=== PATIENT | male | born 1945 | race Hispanic/Latino ===

== ENCOUNTER 2020-05-21 13:16 | Emergency (ER) | payer MEDICARE, SELFPAY ==
--- NOTE | ~2020-05-21 | XR_ITS ---
XR finger 5th LT min 2V 05/21/2020 13:35 Indication: Left fifth finger pain Procedure: 4 views left fifth finger Comparison: No prior studies for comparison. Findings: Mild polyarticular osteoarthritis. Osteopenia. No acute fracture or traumatic malalignment. No foreign bodies. Impression: 1: No acute fracture. 2: Mild polyarticular osteoarthritis. Reviewed, dictated and finalized at location B. Impression: 1: No acute fracture. 2: Mild polyarticular osteoarthritis.
[2020-05-21 13:24] VITALS: BP 166/76; PULSE 73; RESP 20; TEMP 36.5; O2SAT 100
--- NOTE | 2020-05-21 13:37 | ED.GENADULT ---
HPI - General Adult General Chief complaint: Extremity Injury, Upper Stated complaint: Fall - injured left finger Time Seen by Provider: 05/21/20 13:20 Source: patient and family Mode of arrival: ambulatory Limitations: no limitations History of Present Illness HPI narrative: Patient is a 75-year-old male who presents to emergency department for evaluation of pinky finger injury that occurred today. Patient on arrival to emergency department is resting comfortably in the room in no distress notes that he tripped walking down the stairs and dislocated the pinky finger which is his only injury denies other injuries or complaints has not taken anything for pain Related Data Home Medications Medication Instructions Recorded Confirmed aspirin 81 mg tablet,delayed 81 mg PO DAILY 12/01/19 release atorvastatin 10 mg tablet 10 mg PO DAILY 12/01/19 glipizide 5 mg-metformin 500 mg 1 tablet PO DAILY 12/01/19 tablet losartan 100 mg tablet 100 mg PO DAILY 12/01/19 dapagliflozin 5 mg tablet 5 mg PO DAILY 01/27/20 Allergies Allergy/AdvReac Type Severity Reaction Status Date / Time No Known Allergies Allergy Unknown Verified 05/21/20 13:27 Review of Systems Review of Systems: All systems reviewed & are unremarkable except as noted in HPI and below PMFSH Past Medical History Medical History Bradycardia Diabetes Essential hypertension Presence of cardiac pacemaker Surgical History Surgical History H/O rotator cuff surgery Pacemaker Family History Family History Mother Diabetes mellitus Sibling Cerebrovascular accident Sibling Cancer Social History Social History Smoking status: Never smoker Exam Narrative: Exam Narrative: GENERAL: Well-appearing, well-nourished, and in no acute distress. HEAD: Normocephalic, atraumatic. EYES: PERRLA and EOMI. ENT: Nares clear, no rhinorrhea or epistaxis. Mucous membranes moist. EXTREMITIES: Deformity of the left pinky finger which was manually reduced SKIN: Warm, dry, no rash. NEURO: No focal deficits. Alert and oriented x3. Neurovascularly intact PSYCH: Normal mood and affect. Course Course Emergency Course: Patient with finger dislocation in the room in no distress aware of case findings treatment plan and diagnosis Vital Signs Vital signs: Vital Signs Temperature 97.7 F 05/21/20 13:24 Pulse Rate 73 05/21/20 13:24 Respiratory Rate 20 05/21/20 13:24 Blood Pressure 166/76 H 05/21/20 13:24 Pulse Oximetry 100 05/21/20 13:24 Temperature 97.7 F 05/21/20 13:24 Pulse Rate 73 05/21/20 13:24 Respiratory Rate 20 05/21/20 13:24 Blood Pressure 166/76 H 05/21/20 13:24 Pulse Oximetry 100 05/21/20 13:24 Procedures Orthopedic Joint Reduction Joint #1: Orthopedic Joint Reduction Date: 05/21/20 Orthopedic Joint Reduction Time: 13:40 Time Out Performed: Yes Side: left Joint Reduction Location: finger Analgesia: none Pre-Procedure Neuro Vascular Exam: normal Local Anesthesia: none Technique used: direct manipulation Post-reduction neuro exam: intact Post-reduction vascular: intact Post Reduction X-Ray Obtained: Yes Post Reduction X-Ray Results: reduced Splint Applied: Yes Patient Tolerated Procedure: well Medical Decision Making MDM Narrative Medical decision making narrative: Patients injury or pain is consistent with musculoskeletal etiology. No signs of neurological or vascular compromise on exam. Compartments and tisues are soft without signs of compartment syndrome. Pain is felt appropriate for further evaluation on an outpatient basis. Vital Signs Vital Signs: Vital Signs Temperature 97.7 F 05/21/20 13:24 Pulse
[2020-05-21] MEDS: ACETAMINOPHEN 325 MG TABLET 650 MG PO (14:00)
== END 2020-05-21 14:07 | disposition home or self-care (01) ==
PROVIDERS: Emergency Provider Emergency Medicine; PCP Internal Medicine
DX: S63.257A Unspecified dislocation of left little finger, initial encounter (principal); E11.9 Type 2 diabetes mellitus without complications; I10 Essential (primary) hypertension; Z95.0 Presence of cardiac pacemaker; Z79.82 Long term (current) use of aspirin; Z79.84 Long term (current) use of oral hypoglycemic drugs; M19.042 Primary osteoarthritis, left hand; W10.9XXA Fall (on) (from) unspecified stairs and steps, initial encounter
CPT/HCPCS: 26770; 73140; 99285; A9270

== ENCOUNTER 2020-11-02 14:17 | Outpatient (CLI) | payer MEDICARE, SELFPAY ==
--- NOTE | ~2020-11-02 | CT_ITS ---
EXAMINATION: CT brain wo/w con DATE: 11/02/2020 15:01 INDICATION: Stroke. TECHNIQUE: Computed tomography (CT) of the head was performed without and with 100 mL Omnipaque 350 i ntravenous contrast. The mA was adjusted according to patient size. Iterative reconstruction techniqu e was employed. The dose-length product was 1210.67 mGy-cm. COMPARISON: Head CT 05/01/2019 FINDINGS: There are scattered areas of low attenuation in the cerebral white matter. There is no intr acranial hemorrhage, acute infarction, or abnormal intracranial mass lesion. The ventricles are quirino l in size. The paranasal sinuses are clear. The orbits are normal. The mastoid air cells are normal. IMPRESSION: 1. Stable moderate nonspecific cerebral white matter disease, which likely represents chronic small v essel ischemic disease. Reviewed, dictated and finalized at location A. IMPRESSION: 1. Stable moderate nonspecific cerebral white matter disease, which likely repr esents chronic small vessel ischemic disease.
[2020-11-02 14:52] LABS: Estimated Glomerular Filt Rate > 60
== END 2020-11-02 14:18 | disposition home or self-care (01) ==
PROVIDERS: PCP Internal Medicine; Visit Provider Internal Medicine
DX: G45.9 Transient cerebral ischemic attack, unspecified (principal); R90.82 White matter disease, unspecified
CPT/HCPCS: 70470; Q9967

== ENCOUNTER 2020-11-03 09:18 | Outpatient (CLI) | payer MEDICARE, SELFPAY ==
--- NOTE | ~2020-11-03 | US_ITS ---
EXAMINATION: US carotid duplex BI DATE: 11/03/2020 10:50 INDICATION: Transient cerebral ischemia. TECHNIQUE: Grayscale, color Doppler, and pulsed Doppler images of the cervical carotid arteries were obtained. The degree of vessel stenosis is placed in one of the following categories: normal, <50%, 5 0-69%, >=70% but less than near-occlusion, near-occlusion, or total occlusion. Note that percent sten osis relative to normal distal artery lumen diameter is indirectly measured from velocity measurement s as described by Scooby, et al. Radiology 2003; 229:340-346. COMPARISON: None. FINDINGS: RIGHT: The right common carotid artery (CCA) peak systolic velocity (PSV) is 61 cm/s. The right internal car otid artery (ICA) PSV is 56 cm/s. The right ICA end-diastolic velocity (EDV) is 9 cm/s. The right ICA /CCA PSV ratio is 0.9. Grayscale and color Doppler images yield an estimate of <50% diameter reductio n from plaque in the ICA. There is antegrade flow in the right vertebral artery. LEFT: The left CCA PSV is 73 cm/s. The left ICA PSV is 56 cm/s. The left ICA EDV is 10 cm/s. The left ICA/C CA PSV ratio is 0.8. Grayscale and color Doppler images yield an estimate of <50% diameter reduction from plaque in the ICA. There is antegrade flow in the left vertebral artery. IMPRESSION: 1. <50% stenosis in the right internal carotid artery. 2. <50% stenosis in the left internal carotid artery. Reviewed, dictated and finalized at location A.
== END 2020-11-03 09:19 | disposition home or self-care (01) ==
PROVIDERS: PCP Internal Medicine; Visit Provider Internal Medicine
DX: I65.23 Occlusion and stenosis of bilateral carotid arteries (principal)
CPT/HCPCS: 93880

== ENCOUNTER 2020-11-12 14:40 | Outpatient (CLI) | payer MEDICARE, SELFPAY ==
--- NOTE | 2020-11-12 | ECHO_ITS ---
Patient Info Name: Lucien Torres Age: 75 years : 1945 Gender: Male Ht: 66 in Wt: 145 lbs BSA: 1.76 m2 HR: 67 bpm BP: 162 / 84 mmHg Heart Rhythm: Paced Technical Quality: Fair Exam Date: 11/12/2020 2:59 PM Exam Location: [facility] Patient Status: Outpatient Admit Date: 11/12/2020 Staff Ordering Physician: CapoKoko MD Circular Gang Saw Operator: Tana Saldaña RDCS Attending Provider: FatemehKoko MD Exam Type: CA echo doppler color flow Study Info Indications - TIA Complete two-dimensional, color flow and Doppler transthoracic echocardiogram is performed. Summary 1. Complete two-dimensional, color flow and Doppler transthoracic echocardiogram is performed. 2. Left ventricular chamber dimension is normal. 3. Left ventricular systolic function is normal, estimated at 60-65%. 4. Left ventricular septal wall motion is abnormal with septal motion related to pacing. 5. Left atrial chamber dimension is moderately enlarged. 6. There is mild aortic valve sclerosis. 7. No likely cardioembolic source. Left Ventricle Left ventricular chamber dimension is normal. Left ventricular systolic function is normal, estimated at 60-65%. Left ventricular septal wall motion is abnormal with septal motion related to pacing. The left ventricular diastolic function is grade I diastolic dysfunction. Right Ventricle Right ventricular chamber dimension is normal. Linear artifact in right ventricle suggestive of catheter(s), pacemaker lead(s), or ICD lead(s). Left Atria Left atrial chamber dimension is moderately enlarged. Right Atria Right atrial chamber dimension is normal. Linear artifact in the right atrium suggestive of catheter(s), pacemaker lead(s), or ICD lead(s). Aortic Valve The aortic valve is trileaflet. There is mild aortic valve sclerosis. Pulmonic Valve The pulmonic valve is not well visualized. Mitral Valve The mitral valve has normal leaflets. Tricuspid Valve The tricuspid valve leaflets are normal. There is mild tricuspid valve regurgitation. Pericardium/Pleural The pericardium appears normal. Aorta The aortic root size at the sinus of Valsalva is normal. Left Ventricular Outflow Tract Name Value Normal LVOT 2D LVOT Diameter 2.0 cm LVOT Doppler LVOT Peak Gradient 4 mmHg LVOT Mean Gradient 2 mmHg LVOT VTI 19 cm LVOT VTI/AV VTI Ratio 0.9 LVOT Stroke Volume 61 ml LVOT CO 12.9 l/min LVOT CI 7.4 l/min/m2 Pulmonic Valve Name Value Normal PV Doppler PV Peak Gradient 3 mmHg Mitral Valve Name
== END 2020-11-12 14:41 | disposition home or self-care (01) ==
LOC: ANHCARD 14:43
PROVIDERS: PCP Internal Medicine; Visit Provider Internal Medicine
DX: G45.9 Transient cerebral ischemic attack, unspecified (principal); I51.7 Cardiomegaly
CPT/HCPCS: 93306

== ENCOUNTER 2020-12-07 17:23 | Emergency (ER) | payer MEDICARE, SELFPAY ==
--- NOTE | ~2020-12-07 | CT_ITS ---
EXAMINATION: CT cervical spine wo con DATE: 12/07/2020 21:51 INDICATION: Head injury. TECHNIQUE: Computed tomography (CT) of the cervical spine was performed without intravenous contrast. Automated exposure control and iterative reconstruction technique were employed. The dose-length pro duct was 681.00 mGy-cm. COMPARISON: None FINDINGS: There is mild scarring at the lung apices. There are nodules in the lungs measuring up to 6 mm in left upper lobe. There is 4 degrees dextrocurvature of cervical spine. Vertebral body heights and intervertebral disc heights are normal. The following disc levels are specifically discussed: C2-C3: There is no uncovertebral joint osteoarthritis. There is mild right and moderate left facet irasema int osteoarthritis. There is no neural foraminal stenosis. There is mild central canal stenosis. C3-C4: There is no uncovertebral joint osteoarthritis. There is mild bilateral facet joint osteoarthr itis. There is no neural foraminal stenosis. There is no central canal stenosis. C4-C5: There is no uncovertebral joint osteoarthritis. There is mild right and moderate left facet irasema int osteoarthritis. There is no neural foraminal stenosis. There is no central canal stenosis. C5-C6: There is no uncovertebral joint osteoarthritis. There is mild bilateral facet joint osteoarthr itis. There is no neural foraminal stenosis. There is mild central canal stenosis. C6-C7: There is no uncovertebral joint osteoarthritis. There is no facet joint osteoarthritis. There is no neural foraminal stenosis. There is no central canal stenosis. C7-T1: There is no uncovertebral joint osteoarthritis. There is mild bilateral facet joint osteoarthr itis. There is no neural foraminal stenosis. There is no central canal stenosis. IMPRESSION: 1. No fracture. 2. Mild cervical spondylosis. Reviewed, dictated and finalized at location A.
--- NOTE | ~2020-12-07 | CT_ITS ---
EXAMINATION: CT brain wo con DATE: 12/07/2020 21:51 INDICATION: Head injury. TECHNIQUE: Computed tomography (CT) of the head was performed without intravenous contrast. The mA wa s adjusted according to patient size. Iterative reconstruction technique was employed. The dose-lengt h product was 681.00 mGy-cm. COMPARISON: Head CT 11/02/2020 FINDINGS: There are scattered areas of low attenuation in the cerebral white matter. There is no intr acranial hemorrhage, acute infarction, or abnormal intracranial mass lesion. The ventricles are quirino l in size. The orbits are normal. There is mild mucosal thickening in the paranasal sinuses. The mast oid air cells are normal. IMPRESSION: 1. Stable moderate nonspecific cerebral white matter disease, which likely represents chronic small v essel ischemic disease. Reviewed, dictated and finalized at location A. IMPRESSION: 1. Stable moderate nonspecific cerebral white matter disease, which likely repr esents chronic small vessel ischemic disease.
--- NOTE | ~2020-12-07 | XR_ITS ---
EXAMINATION: XR knee RT 3V DATE: 12/07/2020 21:37 INDICATION: Right knee injury and pain. TECHNIQUE: 3 views of right knee were obtained. COMPARISON: Right knee radiographs 05/01/2019 FINDINGS: There is a nondisplaced stellate fracture of patella. There is mild tricompartmental osteoa rthritis. There is a small knee joint effusion. There is prepatellar soft tissue swelling. IMPRESSION: 1. Nondisplaced stellate fracture of patella. 2. Mild right knee osteoarthritis. 3. Small right knee joint effusion. Reviewed, dictated and finalized at location A.
[2020-12-07 17:56] VITALS: BP 147/53; PULSE 63; RESP 16; TEMP 36.3; O2SAT 98
--- NOTE | 2020-12-07 20:32 | ED.GENADULT ---
HPI - General Adult General Chief complaint: Fall <DIMITRI Sierra Last Filed: 12/07/20 21:54> Stated complaint: Fall/ R Knee Pain/ Abrasion forehead <DIMITRI Sierra Last Filed: 12/07/20 21:54> Time Seen by Provider: 12/07/20 20:27 <DIMITRI Sierra Last Filed: 12/07/20 21:54> Source: patient, family and RN notes reviewed <DIMITRI Sierra Last Filed: 12/07/20 21:54> Mode of arrival: ambulatory <DIMITRI Sierra Last Filed: 12/07/20 21:54> Limitations: no limitations <DIMITRI Sierra Filed: 12/07/20 21:54> History of Present Illness HPI narrative: Patient is a pleasant 75-year-old male who presents to emergency department for evaluation of ground-level fall was with family at the time and it was witnessed patient sustained abrasion to the left forehead and injured the right anterior knee. Patient with history of unsteady gait and dementia lives at home with family. Patient is otherwise been fine per family patient notes mild aching pain to the knee denies any headache. Patient presents per private vehicle with family and is otherwise in no distress injury occurred earlier today. Fall was described as mechanical in nature <Oscar Ulloa PA-C - Last Filed: 12/07/20 21:54> Related Data Home medications: Home Medications Medication Instructions Recorded Confirmed aspirin 81 mg tablet,delayed 81 mg PO DAILY 12/01/19 release atorvastatin 10 mg tablet 10 mg PO DAILY 12/01/19 glipizide 5 mg-metformin 500 mg 1 tablet PO DAILY 12/01/19 tablet losartan 100 mg tablet 100 mg PO DAILY 12/01/19 dapagliflozin 5 mg tablet 5 mg PO DAILY 01/27/20 <DIMITRI Sierra Last Filed: 12/07/20 21:54> Allergies/adverse reactions: Allergies Allergy/AdvReac Type Severity Reaction Status Date / Time No Known Allergies Allergy Unknown Verified 07/17/20 09:00 <DIMITRI Sierra Last Filed: 12/07/20 21:54> Review of Systems Review of Systems: All systems reviewed & are unremarkable except as noted in HPI and below <Oscar Ulloa PA-C - Last Filed: 12/07/20 21:54> [facility] Past Medical History Medical History: Medical History Bradycardia Diabetes Essential hypertension Presence of cardiac pacemaker <Oscar Ulloa PA-C - Last Filed: 12/07/20 21:54> Surgical History Surgical History: Surgical History H/O rotator cuff surgery Pacemaker <Oscar Ulloa PA-C - Last Filed: 12/07/20 21:54> Family History Family History: Family History Mother Diabetes mellitus Sibling Cerebrovascular accident Sibling Cancer <Oscar Ulloa PA-C - Last Filed: 12/07/20 21:54> Social History Social History: Social History Smoking status: Never smoker <Oscar Ulloa PA-C - Last Filed: 12/07/20 21:54> Exam Narrative: Exam Narrative: GENERAL: Well-appearing, well-nourished, and in no acute distress. HEAD: Normocephalic, abrasion to the left forehead EYES: PERRLA and EOMI. ENT: Nares clear, no rhinorrhea or epistaxis. Mucous membranes moist. CHEST: Clear to auscultation. No respiratory distress. No wheezes rales or rhonchi HEART: Regular rate and rhythm. No murmur heard. Normal peripheral pulses. EXTREMITIES: Abrasion and swelling to the anterior right knee. No cervical thoracic or lumbar tenderness SKIN: Warm, dry, no rash. NEURO: No focal deficits. Alert and oriented person and place and reason for being here PSYCH: Normal mood and affect. <Oscar Ulloa PA-C - Last Filed: 12/07/20 21:54> Course Course Emergency Course: Patient in the room in no distress aware of case findings at this time involving his knee patient will be placed in
[2020-12-07 20:40] VITALS: BP 165/72; PULSE 63; RESP 18; O2SAT 100
[2020-12-07 23:26] VITALS: BP 152/66; PULSE 59; RESP 16; O2SAT 100
== END 2020-12-07 23:28 | disposition home or self-care (01) ==
PROVIDERS: Emergency Provider Emergency Medicine; PCP Internal Medicine
DX: S00.81XA Abrasion of other part of head, initial encounter (principal); S82.091A Other fracture of right patella, initial encounter for closed fracture; F03.90 Unspecified dementia, unspecified severity, without behavioral disturbance, psychotic disturbance, mood disturbance, and anxiety; R26.81 Unsteadiness on feet; E11.9 Type 2 diabetes mellitus without complications; I10 Essential (primary) hypertension; Z95.0 Presence of cardiac pacemaker; M17.11 Unilateral primary osteoarthritis, right knee; R90.82 White matter disease, unspecified; M47.812 Spondylosis without myelopathy or radiculopathy, cervical region; Z79.82 Long term (current) use of aspirin; Z79.84 Long term (current) use of oral hypoglycemic drugs; W18.39XA Other fall on same level, initial encounter
CPT/HCPCS: 70450; 72125; 73562; 99283; 99284

== ENCOUNTER 2021-01-29 11:53 | Outpatient (CLI) | payer MEDICARE, SELFPAY ==
--- NOTE | ~2021-01-29 | PE_ITS ---
EXAMINATION: PET skull to mid thigh DATE: 01/29/2021 13:48 INDICATION: Lung nodules. TECHNIQUE: Blood glucose level was 87 mg/dL. 10.859 mCi of 18-fluorodeoxyglucose (18-FDG) was adminis tered i.v. Low dose computed tomography (CT) images were acquired from the base of the brain to the p roximal thighs for attenuation correction and anatomic localization. Automated exposure control was e mployed. Dose-length product (DLP) was 605 mGy-cm. Positron emission tomography (PET) images were acq uired in the same distribution. COMPARISON: Chest CT 10/31/2020 FINDINGS: Head/neck: There are no pathologically enlarged lymph nodes. Chest: There is mild scarring at the lung apices. A calcified left lung nodule is consistent with old granulomatous disease. There is mosaic attenuation in the lungs, likely small airways disease. There are a few scattered nodules in the lungs measuring up to 8 mm in left upper lobe without increased a ctivity. The 8 mm nodule demonstrates maximum SUV of 0.82. No pleural effusion. The heart size is nor mal. There are coronary artery calcifications. No pericardial effusion. There is a left chest wall pa cer with leads in the right atrium and right ventricle. Abdomen/pelvis/proximal thighs: The liver is normal. There are gallstones in the gallbladder, which i s normal in size. The pancreas and adrenal glands are normal. There are cysts in the kidneys measurin g up to 2.3 cm on the left. The bladder is distended. There are no dilated loops of bowel. The prosta te is mildly enlarged. There are no pathologically enlarged lymph nodes. There is no free intraperito lia fluid. There is no osseous malignancy. IMPRESSION: 1. Pulmonary nodules measuring up to 8 mm without increased activity, stable from 10/31/20, probably b enign. Noncontrast low-dose chest CT is recommended in 6-12 months. Reviewed, dictated and finalized at location A. IMPRESSION: 1. Pulmonary nodules measuring up to 8 mm without increased activity, stable fr om 10/31/20, probably benign. Noncontrast low-dose chest CT is recommended in 6- 12 months.
[2021-01-29 12:19] LABS: Glucose Point of Care 87 mg/dl (65-105)
== END 2021-01-29 11:54 | disposition home or self-care (01) ==
LOC: ANHIMG 11:56
PROVIDERS: PCP Internal Medicine; Visit Provider Internal Medicine Critical Care Medicine
DX: R91.8 Other nonspecific abnormal finding of lung field (principal)
CPT/HCPCS: 78815; 82948; A9552

== ENCOUNTER 2022-10-05 16:56 | Emergency (ER) | payer MEDICARE, SELFPAY ==
--- NOTE | ~2022-10-05 | CT_ITS ---
EXAMINATION: CT cervical spine wo con DATE: 10/05/2022 17:43 INDICATION: Head injury TECHNIQUE: Computed tomography (CT) of the cervical spine was performed without intravenous contrast. The dose-length product (DLP) was 366.20 mGy-cm. Automated exposure control and iterative reconstruc tion technique were employed. COMPARISON: 12/07/2020 FINDINGS: No fracture, dislocation, or subluxation. The vertebral body heights are normal. There is m ild loss of intervertebral disc space height in the upper thoracic spine. The odontoid process is int act. The prevertebral soft tissues are normal. There is multilevel moderate facet joint osteoarthriti s. IMPRESSION: 1. Mild cervical spondylosis without acute findings or significant interval change. Reviewed, dictated and finalized at location F. S SECRETARY IMPRESSION: 1. Mild cervical spondylosis without acute findings or significant interval saritha nge.
--- NOTE | ~2022-10-05 | CT_ITS ---
EXAMINATION: CT brain wo con INDICATION: Head injury COMPARISON: 12/07/2020 TECHNIQUE: Standard unenhanced head CT. The dose-length product (DLP) was 605.33 mGy-cm. The mA was a djusted according to patient size. Iterative reconstruction technique was employed. FINDINGS: There is no acute intraparenchymal hemorrhage. No evidence of mass lesion. No evidence of a cute infarction. There is moderate periventricular and subcortical hypodensity probably related to sm all vessel ischemic disease. There is moderate prominence of the sulci and ventricles related to cere bral atrophy. Intracranial calcified cerebral atherosclerosis is noted. There are no extra-axial myra ections. There is no mass effect or midline shift. The orbits and soft tissues are unremarkable. Ther e is mild mucosal thickening of the paranasal sinuses. IMPRESSION: 1. No acute intracranial abnormality. 2. Age related findings. Reviewed, dictated and finalized at location F. DENTIAL HOUSEKEEPER
[2022-10-05 17:14] VITALS: BP 136/58; PULSE 91; RESP 18; TEMP 36.8; O2SAT 99
--- NOTE | 2022-10-05 18:31 | ED.HEATRA ---
HPI - Head Injury General Chief complaint: Head Injury Stated complaint: HI Time Seen by Provider: 10/05/22 17:19 Source: patient and family Mode of arrival: ambulatory Limitations: dementia History of Present Illness HPI Narrative: Patient is a 77-year-old male who presents to the ER with reports of head injury with scalp laceration. Patient has a history of dementia and is a limited historian. Patient's son at bedside assisted in providing information and was present when son fell. Son reports patient was bending over trying to pick something off the ground and lost his balance, falling forward. He hit his head on the ground and sustained a laceration to the top of his head. Son denied any loss of consciousness. Patient has been able to ambulate and has been at his baseline since the fall. Patient denies any areas of pain. Denies any other acute complaints. Denies nausea or vomiting, vision changes. Patient is on aspirin 81 mg daily, no other blood thinners. Tetanus status unknown. Related Data Home Medications Medication Instructions Recorded Confirmed aspirin 81 mg tablet,delayed 81 mg PO DAILY 12/01/19 release atorvastatin 10 mg tablet 10 mg PO DAILY 12/01/19 glipizide 5 mg-metformin 500 mg 1 tablet PO DAILY 12/01/19 tablet losartan 100 mg tablet 100 mg PO DAILY 12/01/19 dapagliflozin 5 mg tablet (Farxiga) 5 mg PO DAILY 01/27/20 Allergies Allergy/AdvReac Type Severity Reaction Status Date / Time No Known Allergies Allergy Unknown Verified 10/05/22 17:21 Review of Systems Review of Systems: CONSTITUTIONAL: Denies fever, chills, or sweats. EYES: Denies visual changes. CARDIOVASCULAR: Denies chest pain. RESPIRATORY: Denies dyspnea. GASTROINTESTINAL: Denies abdominal pain, nausea, vomiting. MUSCULOSKELETAL: Denies back pain, joint pain, or myalgia. NEUROLOGIC: See HPI. All systems reviewed & are unremarkable except as noted in HPI and below PMFSH Past Medical History Medical History Bradycardia Diabetes Essential hypertension Presence of cardiac pacemaker Surgical History Surgical History H/O rotator cuff surgery Pacemaker Family History Family History Mother Diabetes mellitus Sibling Cerebrovascular accident Sibling Cancer Social History Social History Smoking status: Never smoker Exam Narrative: GENERAL: Well appearing, well-nourished, non-toxic, in no acute distress. HEAD: Normocephalic. Approximately 2.5 cm curvilinear laceration noted to right superior parietal scalp, bleeding controlled. EYES: PERRLA/EOMI, conjunctiva clear. NECK: Supple. No adenopathy, no masses. No midline spinal tenderness. RESPIRATORY: Airway patent, respirations nonlabored. Clear to auscultation bilaterally, no rales, rhonchi, wheezing. CARDIOVASCULAR: Regular rate and rhythm without murmurs, rubs, or gallops. Radial pulses 2+ and equal bilaterally. ABDOMINAL: Soft, nontender, nondistended, no hepatosplenomegaly. Normoactive BS. MUSCULOSKELETAL: Moves all extremities. Strength/ROM intact without gross deformities. No midline thoracic or lumbar spinal tenderness. SKIN: Warm, dry, normal color. No rashes. NEURO: Alert, confused by questioning, which family reports is consistent with patient's dementia. Speech clear. Cranial nerves II-XII grossly intact. Steady gait. No ataxic movements. No focal deficits. PSYCHIATRIC: Appropriate mood and affect. Normal interaction. Course Vital Signs Vital signs: Vital Signs Temperature 98.2 F 10/05/22 17:14 Pulse Rate 91 10/05/22 17:14 Respiratory Rate 18 10/05/22 17:14 Blood Pressure 136/58 L 10/05/22 17:14 Pulse Oximetry 99 10/05/22 17:14 Oxygen Delivery Room Air 10/05/22 17:14 Temperature 98.2
[2022-10-05] MEDS: TETANUS,DIPHTHERIA,AC PERTUSSIS ADULT (0.5 ML) BOOSTRIX IM (18:47)
[2022-10-05 18:48] VITALS: BP 133/85; PULSE 84; RESP 17; O2SAT 97
== END 2022-10-05 18:50 | disposition home or self-care (01) ==
PROVIDERS: Emergency Provider Physician Assistant; PCP Internal Medicine
DX: S01.01XA Laceration without foreign body of scalp, initial encounter (principal); M47.812 Spondylosis without myelopathy or radiculopathy, cervical region; I10 Essential (primary) hypertension; Z95.0 Presence of cardiac pacemaker; E11.9 Type 2 diabetes mellitus without complications; W18.30XA Fall on same level, unspecified, initial encounter; F03.90 Unspecified dementia, unspecified severity, without behavioral disturbance, psychotic disturbance, mood disturbance, and anxiety; Z23 Encounter for immunization
CPT/HCPCS: 12001; 70450; 72125; 90471; 90715; 99284

== ENCOUNTER 2023-01-02 17:13 | Emergency (ER) | payer MEDICARE, SELFPAY ==
--- NOTE | ~2023-01-02 | CT_ITS ---
EXAMINATION: CT cervical spine wo con DATE: 01/02/2023 19:19 INDICATION: Fall with head injury TECHNIQUE: Computed tomography (CT) of the cervical spine was performed without intravenous contrast. Automated exposure control and iterative reconstruction technique were employed. The dose-length pro duct was 447.36 mGy-cm. COMPARISON: 10/05/2022 FINDINGS: Mild cervicothoracic dextrocurvature. Sagittal alignment is normal. Vertebral body heights are normal . No fracture. Moderate osteoarthritis at the atlantoaxial articulation. Mild disc height loss at C2- C3 through C4-C5. Moderate disc height loss at C7-T1 through T3-T4. Multilevel mild cervical facet an d uncovertebral osteoarthritis. 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 There is no neural foraminal stenosis on the right at T1-T2. No s ignificant cervical neural foraminal stenosis. Cervical soft tissues are unremarkable. Interval amor e since prior PET/CT and a few small nodules at the bilateral apices, the largest measuring 9 x 7 mm in the left upper lobe and which were all without evident increased FDG uptake, likely benign. IMPRESSION: 1. Mild cervical spondylosis. No acute osseous abnormality. Reviewed, dictated and finalized at location A.
--- NOTE | ~2023-01-02 | CT_ITS ---
EXAMINATION: CT brain wo con DATE: 01/02/2023 19:18 INDICATION: Fall with head injury and laceration at the top of the head. TECHNIQUE: Computed tomography (CT) of the head was performed without intravenous contrast. Sagittal and coronal reconstructions were performed. The mA was adjusted according to patient size. Iterative reconstruction technique was employed. The dose-length product was 681.00 mGy-cm. COMPARISON: head CT dated 10/05/2022 FINDINGS: No calvarial fracture. No acute intracranial hemorrhage, acute infarction or abnormal extra axial flu id collection. There is mild to moderate scattered white matter hypoattenuation consistent with chron ic small vessel ischemic disease. Symmetric prominence of the sulci consistent with moderate age-appr opriate diffuse cerebral volume loss. Ventricles are normal and symmetric. No mass/mass effect. Mild mucoperiosteal thickening the ethmoid sinuses. The orbits and mastoid air cells are normal. Intracra nial calcified cerebral atherosclerosis is noted at the carotid siphons. IMPRESSION: 1. No fracture or acute intracranial process. 2. Age-related changes including moderate diffuse volume loss and mild scattered white matter hypoatt enuation consistent with chronic small vessel ischemic disease. Reviewed, dictated and finalized at location A. IMPRESSION: 1. No fracture or acute intracranial process. 2. Age-related changes including moderate diffuse volume loss and mild scattere d white matter hypoattenuation consistent with chronic small vessel ischemic di sease.
--- NOTE | ~2023-01-02 | XR_ITS ---
EXAMINATION: XR chest 1V DATE: 01/02/2023 19:31 INDICATION: Falls TECHNIQUE: frontal view of the chest was obtained. COMPARISON: Chest radiograph dated 08/11/2017 FINDINGS: No focal airspace opacities, pulmonary edema, pleural effusion or pneumothorax. The cardiomediastinal silhouette is normal. Dual lead pacemaker seen with leads projecting over the expected locations of the right atrium and right ventricle. Mild to moderate degenerative skeletal changes at the bilateral shoulders. IMPRESSION: 1. No acute cardiopulmonary disease. Reviewed, dictated and finalized at location A.
[2023-01-02 17:14] VITALS: BP 137/58; PULSE 71; RESP 20; TEMP 37.2; O2SAT 96
--- NOTE | 2023-01-02 19:02 | ECG_ITS ---
Measurements Intervals [place] Rate: 60 P: -7 CA: 207 QRS: -28 QRSD: 146 T: 93 QT: 458 QTc: 460 Interpretive Statements ELECTRONIC ATRIAL PACEMAKER ELECTRONIC VENTRICULAR PACEMAKER ABNORMAL RHYTHM ECG NO PREVIOUS ECG AVAILABLE FOR COMPARISON Electronically Signed On 01-03-2023 9:38:12 CDT by Lei Hadley M.D.
--- NOTE | 2023-01-02 19:08 | ED.GENADULT ---
HPI - General Adult General Chief complaint: Head Injury Stated complaint: fall, head injury Time Seen by Provider: 01/02/23 19:00 Source: family Limitations: dementia History of Present Illness HPI narrative: 77 years old white male with history of Alzheimer, was walking behind his without a walker, lost her balance and fell, scalp laceration, no loss of consciousness, patient denying any pain. Prior to arrival to the emergency room. History of multiple falls. Related Data Home Medications Medication Instructions Recorded Confirmed aspirin 81 mg tablet,delayed 81 mg PO DAILY 12/01/19 release atorvastatin 10 mg tablet 10 mg PO DAILY 12/01/19 glipizide 5 mg-metformin 500 mg 1 tablet PO DAILY 12/01/19 tablet losartan 100 mg tablet 100 mg PO DAILY 12/01/19 dapagliflozin 5 mg tablet (Farxiga) 5 mg PO DAILY 01/27/20 Allergies Allergy/AdvReac Type Severity Reaction Status Date / Time No Known Allergies Allergy Unknown Verified 10/05/22 17:21 Review of Systems Review of Systems: ROS unobtainable: Yes unobtainable due to mental status PMFSH Past Medical History Medical History Bradycardia Diabetes Essential hypertension Presence of cardiac pacemaker Surgical History Surgical History H/O rotator cuff surgery Pacemaker Family History Family History Mother Diabetes mellitus Sibling Cerebrovascular accident Sibling Cancer Social History Social History Smoking status: Never smoker Exam Narrative: General appearance: Well-developed, well-nourished Skin: Normal color Head: Normocephalic, linear abrasion at the top of the scalp, no active bleeding, no open laceration. Eyes: Clear conjunctiva ENT: Oropharynx normal, ears normal, nose normal Neck: Supple, nontender Chest and respiratory: Airway patent, no respiratory distress, no accessory muscle use Heart: Regular rate/rhythm Abdomen: Soft, nontender, no organomegaly, quiet bowel sounds Vascular: Normal peripheral pulses, normal capillary refill. Musculoskeletal: Normal range of motion, nontender back Neurologic: Disoriented x4 Course Vital Signs Vital signs: Vital Signs Temperature 37.2 C 01/02/23 17:14 Pulse Rate 71 01/02/23 17:14 Respiratory Rate 20 01/02/23 17:14 Blood Pressure 137/58 L 01/02/23 17:14 Pulse Oximetry 96 01/02/23 17:14 Oxygen Delivery Room Air 01/02/23 17:14 Temperature 36.6 C 01/02/23 19:32 Pulse Rate 60 01/02/23 19:32 Respiratory Rate 14 01/02/23 19:32 Blood Pressure 144/65 H 01/02/23 19:32 Pulse Oximetry 99 01/02/23 19:32 Oxygen Delivery Room Air 01/02/23 17:14 Medical Decision Making MDM Narrative Medical decision making narrative: History of Alzheimer, multiple falls, was walking behind his without using his walker, tripped and fell, no loss of consciousness, scalp abrasion, required no stitches at this time, topical Neosporin was placed, physical examination showed disoriented gentleman, with scalp abrasion, no other sign of trauma. Differential diagnosis not using his walker, urinary tract infection, electrolyte imbalance. Work-up today showed normal CBC, insignificant CMP and urine analysis, CT cervical spine, head and chest x-ray showed no acute abnormalities. 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 Differential Diagnosis Differential Diagnosis: Head injury, electrolyte abnormality, urinary tract infection Vital Sig
[2023-01-02 19:32] VITALS: BP 144/65; PULSE 60; RESP 14; TEMP 36.6; O2SAT 99
[2023-01-02 19:51] LABS: Basophils Absolute Auto 0.1 K/mm3 (0.0-0.1); Basophils Percent Auto 1.6 % (0.2-1.2); Eosinophils Absolute Auto 0.1 K/mm3 (0-0.3); Eosinophils Percent Auto 1.6 % (0-4.4); Hematocrit 36.2 % (42.0-52.0); Hemoglobin 11.8 g/dL (14.0-18.0); Immature Granulocyte Absolute 0.07 K/mm3 (0.00-0.031); Immature Granulocyte Percent A 0.9 % (0-0.5); Lymphocytes Absolute Auto 1.36 K/mm3 (0.9-3.2); Lymphocytes Percent Auto 18.1 % (18.3-44.2); Mean Corpuscular HGB Conc 32.6 g/dl (32-36); Mean Corpuscular Hemoglobin 29.3 pg (26-34); Mean Corpuscular Volume 89.8 fl (80-100); Mean Platelet Volume 10.7 fl (7.4-10.4); Monocytes Absolute Auto 0.7 K/mm3 (0.1-0.6); Monocytes Percent Auto 8.9 % (2.6-8.5); Neutrophils Absolute Auto 5.2 K/mm3 (1.3-6.7); Neutrophils Percent Auto 68.9 % (45.5-73.1); Platelet Count Result 252 k/mm3 (150-375); Red Blood Count 4.03 M/mm3 (4.6-6.20); White Blood Count 7.5 K/mm3 (4.5-10.0)
[2023-01-02 20:01] LABS: Alanine Aminotransferase 58 U/L (6-50); Albumin Level 4.1 g/dL (3.5-5.1); Alkaline Phosphatase 119 U/L (38-126); Anion Gap 7 mmol/L (8-16); Aspartate Amino Transferase 33 U/L (17-59); Bilirubin,Total 0.5 mg/dL (0.2-1.3); Blood Urea Nitrogen 22 mg/dL (9-20); Carbon Dioxide 28 mmol/L (22-30); Chloride 100 mmol/L (98-107); Estimated CRCL calculation 69 ml/min; Estimated Glomerular Filt Rate > 60; Glucose 154 mg/dL (65-110); Potassium 4.1 mmol/L (3.4-5.0); Sodium 135 mmol/L (137-145)
[2023-01-02 20:13] LABS: Appearance Urine Clear (Clear); Bilirubin Urine Negative (Negative); Blood Urine Negative (Negative); Color Urine Yellow (Yellow); Glucose Urine UA 1+ mg/dL (Negative); Ketones Urine Negative (Negative); Leukocyte Esterase Ur Negative LEU/UL (Negative); Nitrate Urine Negative (Negative); Protein Urine Negative (Negative); Specific Grav Ur 1.014 (1.001-1.035); pH Urine 5.5 (5.0-9.0)
[2023-01-02 20:22] LABS: Add Urine Microscopic? NO
[2023-01-02 20:44] VITALS: BP 157/61; PULSE 58; RESP 14; TEMP 36.7; O2SAT 100
== END 2023-01-02 20:45 | disposition home or self-care (01) ==
PROVIDERS: Emergency Provider Emergency Medicine; PCP Internal Medicine
DX: S00.01XA Abrasion of scalp, initial encounter (principal); G30.9 Alzheimer's disease, unspecified; F02.80 Dementia in other diseases classified elsewhere, unspecified severity, without behavioral disturbance, psychotic disturbance, mood disturbance, and anxiety; Z79.82 Long term (current) use of aspirin; Z79.84 Long term (current) use of oral hypoglycemic drugs; E11.9 Type 2 diabetes mellitus without complications; I10 Essential (primary) hypertension; Z95.0 Presence of cardiac pacemaker; M47.812 Spondylosis without myelopathy or radiculopathy, cervical region; R94.31 Abnormal electrocardiogram [ECG] [EKG]; W01.0XXA Fall on same level from slipping, tripping and stumbling without subsequent striking against object, initial encounter
CPT/HCPCS: 36415; 70450; 71045; 72125; 80053; 81003; 85025; 93005; 99284

== ENCOUNTER 2023-03-27 16:42 | Outpatient (CLI) | payer MEDICARE, SELFPAY ==
--- NOTE | ~2023-03-27 | XR_ITS ---
EXAMINATION: XR chest 2V DATE: 03/27/2023 17:22 INDICATION: Persistent cough TECHNIQUE: PA and lateral views of the chest were obtained. COMPARISON: Chest radiograph dated 01/02/2023 FINDINGS: Unchanged mild elevation the left hemidiaphragm. No focal airspace opacities, pulmonary edema, pleura l effusion or pneumothorax. The cardiomediastinal silhouette is normal. Dual lead pacemaker seen with leads projecting over the expected locations of the right atrium and right ventricle. IMPRESSION: 1. No acute cardiopulmonary disease. Reviewed, dictated and finalized at location A.
== END 2023-03-27 16:43 | disposition home or self-care (01) ==
PROVIDERS: PCP Internal Medicine; Visit Provider Internal Medicine
DX: R05.9 Cough, unspecified (principal)
CPT/HCPCS: 71046

== ENCOUNTER 2023-04-07 08:25 | Outpatient (CLI) | payer MEDICARE, SELFPAY ==
--- NOTE | ~2023-04-07 | XR_ITS ---
EXAMINATION: XR barium swallow modified DATE: 04/07/2023 09:09 INDICATION: Cough. TECHNIQUE: The patient was given barium-containing material of multiple consistencies to swallow by t he speech pathologist while I performed fluoroscopy. Fluoroscopy exposure time was 0.9 minutes. The n umber of fluoroscopy images saved to the PACS was 1. Dose-area product was 0.777 Gy-cm^2. FINDINGS: The oral stage, pharyngeal stage, and cervical/esophageal stage of the swallow are normal. IMPRESSION: 1. Normal modified barium swallow. 2. Please refer to the speech therapy report for recommendations. Reviewed, dictated and finalized at location A.
--- NOTE | 2023-04-07 09:17 | REHSTMBS ---
Assessment and note entered by Mary Alice Almanzar, JOURNEYMAN WELDER Modified Barium Swallow Evaluation Feeding Type Recommended Oral Food Consistency Regular, Level 7 Liquid Consistency Thin (0) ST Clinical Summary MODIFIED BARIUM SWALLOW The patient was seen for an outpatient Modified Barium Swallow study at the request of his physician. Patient's , who accompanied patient to this evaluation, reported patient has dementia and she thinks his type of dementia is Lewy-Body Dementia. She reported patient has had a cough for fourteen weeks and that his coughing can be triggered night and day, causing him to cough up white phlegm. She also stated that he has been chewing his pills but not exhibiting difficulty swallowing food or liquid. Patient was viewed in the lateral position to the level C5/C6. He was presented with thin liquid contrast medium per spoon and per cup, pudding mixed with semi-solid contrast medium per spoon, and then cracker and fruit both coated with the semi-solid mixture. Patient exhibited quick swallows with no evidence of penetration/ aspiration. There was no residue remaining in the pharynx throughout and at the end of this evaluation. Results indicate this patient may remain on a Regular Diet with Regular Liquids. Family may consider crushing medications and placing in pudding or applesauce to facilitate quick swallows if chewing medications is not indicated by label instructions or preferred. Patient is referred back to his physician for further assessment of the complaint of frequent coughing. Thank you for this referral.
== END 2023-04-07 08:26 | disposition home or self-care (01) ==
PROVIDERS: PCP Internal Medicine; Visit Provider Internal Medicine
DX: R05.9 Cough, unspecified (principal)
CPT/HCPCS: 92611

== ENCOUNTER 2023-07-17 19:30 | Emergency (ER) | payer MEDICARE, SELFPAY ==
--- NOTE | ~2023-07-17 | CT_ITS ---
EXAMINATION: CT abdomen pelvis wo con DATE: 07/17/2023 20:45 INDICATION: Flank pain TECHNIQUE: Computed tomography (CT) of the abdomen and pelvis was performed without intravenous contr ast. Automated exposure control and iterative reconstruction technique were employed. The dose-length product was 815.05 mGy-cm. COMPARISON: PET/CT dated 01/29/[address] dated 10/31/2020 FINDINGS: Calcified left lower lobe nodule and a few unchanged nodules in the right middle and right lower lobe s measuring up to 6 mm consistent with old granulomatous disease. Heart size is normal. Atherosclerot ic coronary artery calcification and possible stenting. Dual-lead cardiac pacemaker with lead tips at the right atrium and right ventricle. Small pericardial effusion. Cholelithiasis. Liver, spleen, prather creas and bilateral adrenal glands are normal. A couple left renal cysts the larger measuring 2.8 cm. 1-2 mm nonobstructing stone at the upper pole of the right kidney. No other urolithiasis or hydronep hrosis. Significant distention of the bladder which measures 17.7 x 13.8 x 8.7 cm. There are few tiny intraluminal calcifications along the anterior nondependent wall of the bladder which suggests under lying bladder wall mass suspicious for malignancy. Prostatomegaly. Internal calcified plaques along t he penis consistent with Peyronie's disease. Bowels including the appendix are normal. No free intrap eritoneal gas or fluid. No pathologically enlarged abdominal or pelvic lymphadenopathy. Severe thorac ic and lumbar spondylosis with bridging osteophytes at multiple levels consistent with diffuse idiopa thic skeletal hyperostosis (DISH). IMPRESSION: 1. 1-2 mm nonobstructing right renal stone. No evident ureteral stones or hydronephrosis. 2. Prominent distention of the bladder with suggestion of a subtle intraluminal mass with punctate ca lcific a cyst along the anterior bladder wall. Correlate with urinalysis and consider ultrasound for further evaluation. 3. Cholelithiasis. 4. Prostatomegaly and Peyronie's disease. Reviewed, dictated and finalized at location A. HTS AND MEASURES INSPECTOR IMPRESSION: 1. 1-2 mm nonobstructing right renal stone. No evident ureteral stones or hydro nephrosis. 2. Prominent distention of the bladder with suggestion of a subtle intraluminal mass with punctate calcific a cyst along the anterior bladder wall. Correlate with urinalysis and consider ultrasound for further evaluation. 3. Cholelithiasis. 4. Prostatomegaly and Peyronie's disease.
[2023-07-17 19:32] VITALS: BP 145/57; PULSE 88; RESP 20; TEMP 36.3; O2SAT 96
[2023-07-17 20:28] LABS: Appearance Urine Cloudy (Clear); Bacteria Urine None Seen /hpf; Bilirubin Urine Negative (Negative); Blood Urine 3+ (Negative); Color Urine Yellow (Yellow); Glucose Urine UA 3+ mg/dL (Negative); Ketones Urine Negative (Negative); Leukocyte Esterase Ur Negative LEU/UL (Negative); Nitrate Urine Negative (Negative); Non Pathogenic Casts 0-2; Protein Urine Trace mg/dL (Negative); RBC Urine >100 /hpf (0-2); Squamous Epithelial Cell Urine None seen /hpf (Few); Urobilinogen Urine 0.2 mg/dL (<2.0); WBC Urine 0-5 /hpf; pH Urine 5.5 (5.0-9.0)
[2023-07-17 20:39] LABS: Add Urine Microscopic? YES; Specific Grav Ur 1.036 (1.001-1.035)
[2023-07-17 20:45] LABS: Basophils Absolute Auto 0.1 K/mm3 (0.0-0.1); Basophils Percent Auto 1.3 % (0.2-1.2); Eosinophils Absolute Auto 0.1 K/mm3 (0-0.3); Eosinophils Percent Auto 1.3 % (0-4.4); Hematocrit 34.1 % (42.0-52.0); Hemoglobin 10.9 g/dL (14.0-18.0); Immature Granulocyte Absolute 0.02 K/mm3 (0.00-0.031); Immature Granulocyte Percent A 0.3 % (0-0.5); Lymphocytes Absolute Auto 1.03 K/mm3 (0.9-3.2); Lymphocytes Percent Auto 14.9 % (18.3-44.2); Mean Corpuscular Hemoglobin 28.8 pg (26-34); Mean Corpuscular Volume 90.2 fl (80-100); Mean Platelet Volume 11.5 fl (7.4-10.4); Monocytes Absolute Auto 0.9 K/mm3 (0.1-0.6); Monocytes Percent Auto 12.4 % (2.6-8.5); Neutrophils Absolute Auto 4.8 K/mm3 (1.3-6.7); Neutrophils Percent Auto 69.8 % (45.5-73.1); Platelet Count Result 173 k/mm3 (150-375); Red Blood Count 3.78 M/mm3 (4.6-6.20); Red Cell Distribution Width 15.4 % (11.5-14.5); White Blood Count 6.9 K/mm3 (4.5-10.0)
--- NOTE | 2023-07-17 20:53 | ED.GENADULT ---
HPI - General Adult General Chief complaint: Back Pain/Injury Stated complaint: back pain Time Seen by Provider: 07/17/23 20:11 History of Present Illness HPI narrative: patient 78-year-old gentleman who presents the emergency department with chief complaint of back pain. Patient is resident of a local memory care unit and has been having pain in his back area. The patient has had episode where he became more angry and the family was concerned that he may have a UTI or kidney stone. Related Data Home Medications Medication Instructions Recorded Confirmed aspirin 81 mg tablet,delayed 81 mg PO DAILY 12/01/19 release atorvastatin 10 mg tablet 10 mg PO DAILY 12/01/19 glipizide 5 mg-metformin 500 mg 1 tablet PO DAILY 12/01/19 tablet losartan 100 mg tablet 100 mg PO DAILY 12/01/19 dapagliflozin propanediol 5 mg 5 mg PO DAILY 01/27/20 tablet (Farxiga) Allergies Allergy/AdvReac Type Severity Reaction Status Date / Time No Known Allergies Allergy Unknown Verified 07/17/23 19:47 Review of Systems Review of Systems: A 10 system review of systems was completed on the patient and is negative except for what is stated in the HPI. Nursing and ancillary documentation was reviewed. PMFSH Past Medical History Medical History Bradycardia Diabetes Essential hypertension Presence of cardiac pacemaker Surgical History Surgical History H/O rotator cuff surgery Pacemaker Family History Family History Mother Diabetes mellitus Sibling Cerebrovascular accident Sibling Cancer Social History Social History Smoking status: Never smoker Exam Narrative: GENERAL: Well-appearing, well-nourished, and in no acute distress. HEAD: Normocephalic, atraumatic. EYES: PERRLA and EOMI. ENT: Nares clear, no rhinorrhea or epistaxis. Mucous membranes moist. NECK: Supple. CHEST: Clear to auscultation. No respiratory distress. HEART: Regular rate and rhythm. No murmur heard. Normal peripheral pulses. ABDOMEN: Soft, nontender, nondistended, normal active bowel sounds. EXTREMITIES: Normal range of motion. No edema. SKIN: Warm, dry, no rash. NEURO: No focal deficits. Alert and Pleasantly confused. PSYCH: Normal mood and affect. Course Vital Signs Vital signs: Vital Signs Temperature 36.3 C L 07/17/23 19:32 Pulse Rate 88 07/17/23 19:32 Respiratory Rate 20 07/17/23 19:32 Blood Pressure 145/57 H 07/17/23 19:32 Pulse Oximetry 96 07/17/23 19:32 Oxygen Delivery Room Air 07/17/23 19:32 Temperature 36.3 C L 07/17/23 19:32 Pulse Rate 88 07/17/23 19:32 Respiratory Rate 20 07/17/23 19:32 Blood Pressure 145/57 H 07/17/23 19:32 Pulse Oximetry 96 07/17/23 19:32 Oxygen Delivery Room Air 07/17/23 19:32 Medical Decision Making MDM Narrative Medical decision making narrative: differential diagnosis was UTI, kidney stone, urinary obstruction, renal failure, laboratory studies were obtained on the patient which showed a CBC with a white count of 6.9 hemoglobin was 10.9 electrolytes are within normal limits BUN was 24 creatinine was 0.7 urinalysis was greater than 100 red blood cells negative leukocyte esterase negative white blood cells and negative nitrate. CT scan of the abdomen pelvis showed a largely distended bladder the patient was found to have greater than 900 mL of urine in his bladder after urinating a Celestin catheter was placed patient had 1400 mL of urine the CT scan did also show possible intraluminal mass in the bladder the patient will be referred to Urology for further evaluation. Vital Signs Vital Signs: Vital Signs Temperature 36.3 C L 07/17/23 19:32 Pulse Rate 88 07/17/23 19:32 Respiratory Rat
[2023-07-17 21:03] LABS: Alanine Aminotransferase 17 U/L (6-50); Albumin Level 3.8 g/dL (3.5-5.1); Alkaline Phosphatase 65 U/L (38-126); Anion Gap 5 mmol/L (8-16); Aspartate Amino Transferase 20 U/L (17-59); Bilirubin,Total 0.4 mg/dL (0.2-1.3); Blood Urea Nitrogen 24 mg/dL (9-20); Calcium 9.4 mg/dL (8.4-10.2); Carbon Dioxide 23 mmol/L (22-30); Chloride 108 mmol/L (98-107); Estimated CRCL calculation 59 ml/min; Estimated Glomerular Filt Rate > 60; Glucose 392 mg/dL (65-110); Potassium 3.9 mmol/L (3.4-5.0); Sodium 136 mmol/L (137-145)
[2023-07-17 21:04] LABS: Lactic Acid Reflex 2.1 mmol/L (0.7-2.0)
[2023-07-17 22:25] VITALS: BP 132/60; PULSE 82; RESP 18; O2SAT 97
[2023-07-17 23:43] LABS: Reflex Lactic Acid Yes or No Add Lactic
== END 2023-07-17 23:02 ==
PROVIDERS: Emergency Provider Emergency Medicine; PCP Internal Medicine
DX: R33.9 Retention of urine, unspecified (principal); M54.9 Dorsalgia, unspecified; E11.9 Type 2 diabetes mellitus without complications; I10 Essential (primary) hypertension
CPT/HCPCS: 36415; 51702; 74176; 80053; 81001; 83605; 85025; 99284

== ENCOUNTER 2023-07-18 13:42 | Inpatient (IN) | payer MEDICARE, SELFPAY ==
[2023-07-18] VITALS (30 sets, daily range): BP systolic 111–168; BP diastolic 56–73; PULSE 60–95; RESP 12–20; TEMP 36–37; O2SAT 93–99
--- NOTE | ~2023-07-18 | XR_ITS ---
XR abdomen/kub 1V 07/20/2023 15:56 INDICATION: Abdomen pain TECHNIQUE: KUB COMPARISON: No prior studies for comparison. FINDINGS: Bowel gas pattern is normal. Moderate colonic fecal loading. There is no evidence of free a ir, mass, organomegaly, ascites or obstruction. No abnormal calculi are seen. The bones appear inta ct. Severe lumbar spondylosis. IMPRESSION: 1: No acute abdominal abnormality identified. Reviewed, dictated and finalized at location A. UCTION MACHINE OPERATOR
--- NOTE | ~2023-07-18 | US_ITS ---
EXAMINATION: US pelvic limited DATE: 07/18/2023 16:54 INDICATION: hematuria . TECHNIQUE: Grayscale and Doppler ultrasound images of the bladder were obtained. COMPARISON: CT abdomen and pelvis 07/17/2023. FINDINGS: There is a Celestin catheter balloon in the expected region of the urinary bladder. The urinar y bladder is completely decompressed and therefore not well evaluated. IMPRESSION: Limited evaluation due to decompression of the urinary bladder by a Celestin catheter. Reviewed, dictated and finalized at location K. NS DISPATCHER SUPERVISOR IMPRESSION: Limited evaluation due to decompression of the urinary bladder by a Celestin tonya ter.
--- NOTE | 2023-07-18 14:38 | ED.GENADULT ---
HPI - General Adult General Chief complaint: Urogenital-Male Stated complaint: blood in catheter Time Seen by Provider: 07/18/23 14:19 History of Present Illness HPI narrative: 78-year-old male returning to the emergency department for evaluation of hematuria. patient was evaluated in the emergency department yesterday did have a Celestin catheter placed due to concern for urinary retention. After getting back to his care facility patient was found to have hematuria. patient's CT scan yesterday did show a distended bladder but also showed a possible wall mass. upon arrival to the emergency department patient's hematuria was a dark red urine but after emptying the Celestin bag the urine became or gross hematuria. Patient does have history of urinary retention and does have follow-up with Dr. Garza. Related Data Home Medications Medication Instructions Recorded Confirmed aspirin 81 mg tablet,delayed 81 mg PO DAILY 12/01/19 release atorvastatin 10 mg tablet 10 mg PO DAILY 12/01/19 glipizide 5 mg-metformin 500 mg 1 tablet PO DAILY 12/01/19 tablet losartan 100 mg tablet 100 mg PO DAILY 12/01/19 dapagliflozin propanediol 5 mg 5 mg PO DAILY 01/27/20 tablet (Farxiga) Allergies Allergy/AdvReac Type Severity Reaction Status Date / Time No Known Allergies Allergy Unknown Verified 07/17/23 19:47 Review of Systems Review of Systems: All systems reviewed & are unremarkable except as noted in HPI and below PMFSH Past Medical History Medical History Bradycardia Diabetes Essential hypertension Presence of cardiac pacemaker Surgical History Surgical History H/O rotator cuff surgery Pacemaker Family History Family History Mother Diabetes mellitus Sibling Cerebrovascular accident Sibling Cancer Social History Social History Smoking status: Never smoker Exam Narrative: APPEARANCE: somnolent but well-appearing HEAD: normocephalic, atraumatic. EYES: PERRLA/EOMI, conjunctivae clear. NOSE: Normal no drainage EARS:TMS clear with good light reflex. THROAT: Pharynx clear, no exudate. NECK: Supple. No adenopathy, no masses. RESPIRATORY: Airway patent, respirations nonlabored. Clear to auscultation bilaterally, no rales, rhonchi, wheezing. CARDIOVASCULAR: Regular rate and rhythm without murmurs rubs or gallops. ABDOMINAL: Soft, nontender, nondistended, normal bowel sounds MUSCULOSKELETAL: Moves all extremities. Strength/ROM intact, No edema, No calf tenderness. NEURO: Alert. Cranial nerves II through XII intact. grossly intact SKIN: Warm, dry. Normal Color Course Course Emergency Course: 78-year-old male presented to the ED for evaluation gross hematuria. Celestin catheter was exchanged for CBI. Patient's hemoglobin decreased from 10.9-10.4 today. Ultrasound was ordered and showed decompressed bladder. Patient was negative for influenza RSV and for COVID. No significant abnormalities on the patient's CMP. Urology was consulted and case discussed with the hospitalist. Vital Signs Vital signs: Vital Signs Temperature 96.8 F L 07/18/23 13:44 Pulse Rate 64 07/18/23 13:44 Respiratory Rate 20 07/18/23 13:44 Blood Pressure 137/56 L 07/18/23 13:44 Pulse Oximetry 98 07/18/23 13:44 Oxygen Delivery Room Air 07/18/23 13:44 Temperature 96.8 F L 07/18/23 13:44 Pulse Rate 60 07/18/23 15:31 Respiratory Rate 13 07/18/23 15:31 Blood Pressure 126/61 07/18/23 15:31 Pulse Oximetry 95 07/18/23 15:31 Oxygen Delivery Room Air 07/18/23 13:44 Medical Decision Making Vital Signs Vital Signs: Vital Signs Temperature 96.8 F L 07/18/23 13:44 Pulse Rate 64 07/18/23 13:44 Respiratory Rate 20 07/18/23 13:44 Bloo
[2023-07-18 15:03] LABS: Basophils Absolute Auto 0.1 K/mm3 (0.0-0.1); Basophils Percent Auto 1.2 % (0.2-1.2); Eosinophils Absolute Auto 0.1 K/mm3 (0-0.3); Hematocrit 33.3 % (42.0-52.0); Hemoglobin 10.4 g/dL (14.0-18.0); Immature Granulocyte Absolute 0.02 K/mm3 (0.00-0.031); Immature Granulocyte Percent A 0.3 % (0-0.5); Lymphocytes Absolute Auto 0.94 K/mm3 (0.9-3.2); Lymphocytes Percent Auto 12.8 % (18.3-44.2); Mean Corpuscular HGB Conc 31.2 g/dl (32-36); Mean Corpuscular Hemoglobin 28.8 pg (26-34); Mean Corpuscular Volume 92.2 fl (80-100); Mean Platelet Volume 10.8 fl (7.4-10.4); Monocytes Absolute Auto 0.9 K/mm3 (0.1-0.6); Monocytes Percent Auto 12.8 % (2.6-8.5); Neutrophils Absolute Auto 5.3 K/mm3 (1.3-6.7); Neutrophils Percent Auto 71.9 % (45.5-73.1); Platelet Count Result 156 k/mm3 (150-375); Red Blood Count 3.61 M/mm3 (4.6-6.20); Red Cell Distribution Width 15.3 % (11.5-14.5); White Blood Count 7.3 K/mm3 (4.5-10.0)
[2023-07-18 15:11] LABS: INR 1.1
[2023-07-18 15:12] LABS: Partial Thromboplastin Time 36.5 SECONDS (22.3-36.8)
[2023-07-18 15:20] LABS: Alanine Aminotransferase 17 U/L (6-50); Albumin Level 3.7 g/dL (3.5-5.1); Alkaline Phosphatase 65 U/L (38-126); Anion Gap 8 mmol/L (8-16); Aspartate Amino Transferase 22 U/L (17-59); Bilirubin,Total 0.9 mg/dL (0.2-1.3); Blood Urea Nitrogen 25 mg/dL (9-20); Calcium 8.8 mg/dL (8.4-10.2); Carbon Dioxide 25 mmol/L (22-30); Chloride 107 mmol/L (98-107); Estimated CRCL calculation 68 ml/min; Estimated Glomerular Filt Rate > 60; Glucose 295 mg/dL (65-110); Potassium 3.7 mmol/L (3.4-5.0); Sodium 140 mmol/L (137-145)
[2023-07-18] MEDS: SODIUM CHLORIDE 0.9% IV 1,000 ML 999 ML IV CONT (17:41)
[2023-07-18 18:24] LABS: Influenza A QL RT-PCR Negative (Negative); Influenza B QL RT-PCR Negative (Negative); RSV RNA, RT-PCR Negative (Negative); SARS-CoV-2 RNA PCR Negative (Negative)
--- NOTE | 2023-07-18 18:39 | PM.IMHP ---
H&P: HPI History of Present Illness Date/Time: 07/18/23 17:45 Chief Complaint: Hematuria. Narrative: This is a 78-year-old male with dementia, hypertension, hyperlipidemia, and type 2 diabetes mellitus who presented to the emergency department via EMS from [place] for evaluation of hematuria. He is not a great historian due to his underlying dementia and his and daughter provides the majority of the following history. The patient was seen emergency department last evening for evaluation of back pain. CT scan showed that his bladder was markedly distended and a Celestin catheter yielded 1400 mL of urine upon insertion. Possible intraluminal mass was also noted in the bladder and he was referred to Urology as an outpatient. Since returning back to his memory care facility, he has developed gross hematuria and he was sent back in for evaluation. The patient himself has no complaints and specifically denies back and abdominal pain at this time. He also denies fever, chills, sweats, nausea, and vomiting. He was afebrile on arrival with stable blood pressures. Hemoglobin was 10.4 which is a bit lower than what it was yesterday evening. BUN and creatinine were 25 and 0.60 respectively. He has been started on CBI and he is being admitted in this setting. Review of Systems Review of Systems: Limited given his dementia. Reports of fever, vomiting, or diarrhea. remarks that he tends to wander at night. He has a history of falls and ambulates with a walker or wheelchair at times. [facility] Past Medical History Medical History (Updated 07/18/23 @ 22:52 by Tavia Clay PA-C) Bradycardia Dementia Essential hypertension Type 2 diabetes mellitus Surgical History Surgical History (Updated 07/18/23 @ 22:48 by Tavia Clay PA-C) History of permanent cardiac pacemaker placement History of repair of rotator cuff Family History Family History Mother Diabetes mellitus Sibling Cerebrovascular accident Sibling Cancer Social History Social History (Updated 07/18/23 @ 22:49 by Tavia Clay PA-C) Social History: Surrogate medical decision makers: Leann Torres (spouse), Alexandre Torres (son), and Claudia Tello (daughter). Code status: Do not resuscitate. Smoking status: Never smoker Alcohol intake: never Substance use: unknown Additional living arrangements comments: [facility]. Additional occupation/education comments: Retired from [employer]. Spiritual care concerns: No Meds Home Medications and Allergies Home Medications Medication Instructions Recorded Confirmed Type aspirin 81 mg tablet,delayed 81 mg PO DAILY 12/01/19 History release atorvastatin 10 mg tablet 10 mg PO DAILY 12/01/19 History glipizide 5 mg-metformin 500 mg 1 tablet PO DAILY 12/01/19 History tablet losartan 100 mg tablet 100 mg PO DAILY 12/01/19 History dapagliflozin propanediol 5 mg 5 mg PO DAILY 01/27/20 History tablet (Farxiga) Allergies Allergy/AdvReac Type Severity Reaction Status Date / Time No Known Allergies Allergy Unknown Verified 07/17/23 19:47 Vital Signs Vital Signs - 24 hr 07/18/23 13:44 07/18/23 13:56 07/18/23 13:55 Temperature 96.8 F L Pulse Rate 64 62 Respiratory Rate 20 12 Blood Pressure 137/56 L 141/64 H Pulse Oximetry 98 97 97 Oxygen Delivery Room Air 07/18/23 13:57 07/18/23 14:00 07/18/23 14:01 Temperature Pulse Rate Respiratory Rate Blood Pressure 141/64 H 134/58 L Pulse Oximetry 98 97 97 Oxygen Delivery 07/18/23 14:15 07/18/23 14:16 07/18/23 14:30 Temperature Pulse Rate 95 Respiratory Rate 13 Blood Pressure 111/58 L 119/59 L Pulse Oximetry 96 97 96 Oxygen Delivery 07/18/23 14:48 07/18/23 15:12 07/18/23 15:15 Temperature Pulse Rate Respiratory Rate Blood Pressure 133/60 Pulse Oximetry 97 94 93 Oxygen Delivery 07/18/23 15:1
[2023-07-19 05:19] LABS: Hematocrit 34.6 % (42.0-52.0); Hemoglobin 11.1 g/dL (14.0-18.0); Mean Corpuscular HGB Conc 32.1 g/dl (32-36); Mean Corpuscular Hemoglobin 29.1 pg (26-34); Mean Corpuscular Volume 90.6 fl (80-100); Mean Platelet Volume 10.7 fl (7.4-10.4); Platelet Count Result 155 k/mm3 (150-375); Red Blood Count 3.82 M/mm3 (4.6-6.20); Red Cell Distribution Width 15.1 % (11.5-14.5); White Blood Count 7.9 K/mm3 (4.5-10.0)
[2023-07-19 05:32] LABS: Hemoglobin A1C 8.2 % (<5.7)
[2023-07-19 05:40] LABS: Anion Gap 5 mmol/L (8-16); Blood Urea Nitrogen 24 mg/dL (9-20); Calcium 8.7 mg/dL (8.4-10.2); Carbon Dioxide 26 mmol/L (22-30); Chloride 109 mmol/L (98-107); Estimated CRCL calculation 80 ml/min; Estimated Glomerular Filt Rate > 60; Glucose 151 mg/dL (65-110); Magnesium 2.1 mg/dL (1.6-2.3); Potassium 3.3 mmol/L (3.4-5.0); Sodium 140 mmol/L (137-145)
[2023-07-19 05:53] VITALS: BP 148/58; PULSE 60; RESP 14; TEMP 37; O2SAT 100
[2023-07-19] MEDS: HALOPERIDOL LACTATE 5 MG/ML VIAL IM (08:03)
--- NOTE | 2023-07-19 10:29 | PM.IMPN ---
Progress Note: A&P Assessment and Plan (1) Gross hematuria: Code(s): R31.0 - Gross hematuria Status: Acute Assessment and Plan: Appreciate urology consultation, continue CBI (2) Type 2 diabetes mellitus: Code(s): E11.9 - Type 2 diabetes mellitus without complications Status: Acute Assessment and Plan: Blood glucose reviewed 07/19 (3) Dementia: Code(s): F03.90 - Unspecified dementia, unspecified severity, without behavioral disturbance, psychotic disturbance, mood disturbance, and anxiety Status: Acute Plan DVT prophylaxis with SCDs GI prophylaxis not indicated Code status full code Subjective Date/time seen: 07/19/23 10:29 Interval history: 78-year-old male with dementia, hypertension, hyperlipidemia, and type 2 diabetes mellitus who presented to the emergency department via EMS from [place] for evaluation of hematuria is currently being treated with CBI. Confused, combative, this morning, resting comfortably now. No fevers. Review of Systems Review of Systems: ROS unobtainable: Yes unobtainable due to mental status Exam Narrative: General: Somnolent, no complaints, no acute distress HEENT: Atraumatic, normocephalic, mucous membranes moist CV: Regular rate and rhythm, S1, S2 Lungs: Clear to auscultation bilaterally, no rales or crackles noted, no wheezes, good air entry Abdomen: Soft, nontender, nondistended Extremities: Normal to inspection Skin: No rashes noted, no lesions or wounds seen Psych: Unable to assess Objective Data Vital Signs Vital Signs: Vital Signs - 24 hr 07/18/23 13:44 07/18/23 13:56 07/18/23 13:55 Temperature 96.8 F L Pulse Rate 64 62 Respiratory Rate 20 12 Blood Pressure 137/56 L 141/64 H Pulse Oximetry 98 97 97 Oxygen Delivery Room Air 07/18/23 13:57 07/18/23 14:00 07/18/23 14:01 Temperature Pulse Rate Respiratory Rate Blood Pressure 141/64 H 134/58 L Pulse Oximetry 98 97 97 Oxygen Delivery 07/18/23 14:15 07/18/23 14:16 07/18/23 14:30 Temperature Pulse Rate 95 Respiratory Rate 13 Blood Pressure 111/58 L 119/59 L Pulse Oximetry 96 97 96 Oxygen Delivery 07/18/23 14:48 07/18/23 15:12 07/18/23 15:15 Temperature Pulse Rate Respiratory Rate Blood Pressure 133/60 Pulse Oximetry 97 94 93 Oxygen Delivery 07/18/23 15:16 07/18/23 15:30 07/18/23 15:31 Temperature Pulse Rate 60 Respiratory Rate 13 Blood Pressure 126/61 Pulse Oximetry 94 95 95 Oxygen Delivery 07/18/23 15:32 07/18/23 16:47 07/18/23 17:04 Temperature Pulse Rate Respiratory Rate Blood Pressure Pulse Oximetry 94 95 96 Oxygen Delivery 07/18/23 17:30 07/18/23 18:08 07/18/23 18:18 Temperature Pulse Rate Respiratory Rate Blood Pressure Pulse Oximetry 94 97 97 Oxygen Delivery 07/18/23 18:30 07/18/23 18:45 07/18/23 17:43 Temperature Pulse Rate Respiratory Rate Blood Pressure 164/73 H Pulse Oximetry 97 96 Oxygen Delivery 07/18/23 19:42 07/18/23 19:43 07/18/23 19:45 Temperature Pulse Rate 71 Respiratory Rate 14 Blood Pressure 168/72 H Pulse Oximetry 98 99 97 Oxygen Delivery 07/18/23 19:46 07/18/23 20:36 07/18/23 21:00 Temperature 98.6 F Pulse Rate 65 83 83 Respiratory Rate 17 18 18 Blood Pressure 166/68 H 156/59 H Pulse Oximetry 99 99 99 Oxygen Delivery Room Air 07/19/23 05:53 Temperature 98.6 F Pulse Rate 60 Respiratory Rate 14 Blood Pressure 148/58 H Pulse Oximetry 100 Oxygen Delivery Intake/Output Intake/Output: Intake & Output 07/16/23 07/17/23 07/18/23 07/19/23 23:59 23:59 23:59 23:59 Intake Total 1000 500 Output Total 800 83042 Balance 200 -68742 Meds/Results Medications: Active Medications Generic Name Dose Route Start Last Admin Trade Name Freq PRN Reason Stop Dose Admin Acetaminophen 650 mg 07/18/23 22:54 [place]
[2023-07-19 11:08] VITALS: BMI 23.1
--- NOTE | 2023-07-19 11:16 | WPDURCON ---
Assessment and Plan Assessment and plan (1) Gross hematuria: Code(s): R31.0 - Gross hematuria Status: Acute Assessment and Plan: Continue CBI. Titrate to clear. (2) Bladder mass: Code(s): N32.89 - Other specified disorders of bladder Status: Acute Assessment and Plan: Will need cystoscopy performed. Timing uncertain at this time Urology Consult Note HPI Date Seen: 07/19/23 Requesting Physician: Lou Cardona DO Primary Care Provider: Koko Scanlon, Consult Narrative Narrative: Lucien Torres is a 78 year old male he sees my partner Dr. Gazra. He is on Flomax and Proscar for BPH. He has severe dementia. He resides in a memory care. He came to the ER with back pain 2 days ago. There was hematuria as well. He was sent home. He returns to the emergency room with worsening hematuria. He is admitted for further management. His is present in the room. She gives the history as he is not able to participate with history and physical currently. She states he has had back pain but no flank pain. He has not had symptoms of urinary tract infection. CT scan shows a possible mass within the bladder with small calcifications. There is no hydronephrosis. The bladder is decompressed around a Celestin catheter. He is on continuous bladder irrigation Review of Systems Review of Systems: ROS unobtainable: Yes unobtainable due to mental status PMFSH Past Medical History Medical History Bradycardia Dementia Essential hypertension Type 2 diabetes mellitus Surgical History Surgical History History of permanent cardiac pacemaker placement History of repair of rotator cuff Family History Family History Mother Diabetes mellitus Sibling Cerebrovascular accident Sibling Cancer Social History Social History Social History: Surrogate medical decision makers: Leann Torres (spouse), Alexandre Torres (son), and Claudia Tello (daughter). Code status: Do not resuscitate. Smoking status: Never smoker Alcohol intake: never Substance use: unknown Additional living arrangements comments: [facility]. Additional occupation/education comments: Retired from [employer]. Spiritual care concerns: No Meds Home Medications and Allergies Home Medications Medication Instructions Recorded Confirmed Type atorvastatin 10 mg tablet 10 mg PO DAILY 12/01/19 07/19/23 History losartan 100 mg tablet 100 mg PO DAILY 12/01/19 07/19/23 History finasteride 5 mg tablet 5 mg PO DAILY 07/19/23 07/19/23 History melatonin 10 mg tablet 10 mg PO HS PRN Sleep 07/19/23 07/19/23 History metformin 500 mg tablet 1,000 mg PO BID 07/19/23 07/19/23 History sertraline 25 mg tablet 25 mg PO DAILY 07/19/23 07/19/23 History tamsulosin 0.4 mg capsule 0.4 mg PO DAILY 07/19/23 07/19/23 History Allergies Allergy/AdvReac Type Severity Reaction Status Date / Time No Known Allergies Allergy Unknown Verified 07/17/23 19:47 Vital Signs Vital Signs - 24 hr 07/18/23 13:44 07/18/23 13:56 07/18/23 13:55 Temperature 96.8 F L Pulse Rate 64 62 Respiratory Rate 20 12 Blood Pressure 137/56 L 141/64 H Pulse Oximetry 98 97 97 Oxygen Delivery Room Air 07/18/23 13:57 07/18/23 14:00 07/18/23 14:01 Temperature Pulse Rate Respiratory Rate Blood Pressure 141/64 H 134/58 L Pulse Oximetry 98 97 97 Oxygen Delivery 07/18/23 14:15 07/18/23 14:16 07/18/23 14:30 Temperature Pulse Rate 95 Respiratory Rate 13 Blood Pressure 111/58 L 119/59 L Pulse Oximetry 96 97 96 Oxygen Delivery 07/18/23 14:48 07/18/23 15:12 07/18/23 15:15 Temperature Pulse Rate Respiratory Rate Blood Pressure 133/60 Pulse Oximetry 97 94 93 Oxygen
[2023-07-19 12:04] LABS: Glucose Point of Care 201 mg/dl (65-105)
[2023-07-19 14:00] VITALS: BP 132/53; PULSE 61; RESP 16; TEMP 36.3; O2SAT 99
[2023-07-19 17:16] LABS: Glucose Point of Care 316 mg/dl (65-105)
[2023-07-19] MEDS: INSULIN ASPART (*BKC) 100 UNITS/ML SUB-Q (17:52)
--- NOTE | 2023-07-19 18:40 | PC.NURSE ---
During 07/18/23-07/19/23 production supervisor off shift until 0745 07/19/23, this pt had CBI running. The output charted was 25,000 mL. The output was recalculated by day shift via the intake and output sheets. The actual pt output was 4,175 mL per the documentation on the intake and output sheet.
[2023-07-19 22:00] VITALS: BP 130/53; PULSE 66; RESP 21; TEMP 37.1; O2SAT 100
[2023-07-20] MEDS: INSULIN ASPART (*BKC) 100 UNITS/ML SUB-Q ×2 (00:37→13:36)
[2023-07-20] MEDS: QUEtiapine FUMARATE 25 MG TABLET PO ×2 (00:38→19:44)
[2023-07-20 05:53] LABS: Basophils Absolute Auto 0.1 K/mm3 (0.0-0.1); Basophils Percent Auto 1.1 % (0.2-1.2); Eosinophils Absolute Auto 0.1 K/mm3 (0-0.3); Eosinophils Percent Auto 1.6 % (0-4.4); Hematocrit 32.5 % (42.0-52.0); Hemoglobin 10.5 g/dL (14.0-18.0); Immature Granulocyte Absolute 0.03 K/mm3 (0.00-0.031); Immature Granulocyte Percent A 0.4 % (0-0.5); Lymphocytes Absolute Auto 1.22 K/mm3 (0.9-3.2); Lymphocytes Percent Auto 16.1 % (18.3-44.2); Mean Corpuscular HGB Conc 32.3 g/dl (32-36); Mean Corpuscular Hemoglobin 29.2 pg (26-34); Mean Corpuscular Volume 90.5 fl (80-100); Mean Platelet Volume 11.9 fl (7.4-10.4); Monocytes Absolute Auto 0.8 K/mm3 (0.1-0.6); Monocytes Percent Auto 10.5 % (2.6-8.5); Neutrophils Absolute Auto 5.3 K/mm3 (1.3-6.7); Neutrophils Percent Auto 70.3 % (45.5-73.1); Platelet Count Result 158 k/mm3 (150-375); Red Blood Count 3.59 M/mm3 (4.6-6.20); White Blood Count 7.6 K/mm3 (4.5-10.0)
[2023-07-20 06:00] VITALS: BP 168/90; PULSE 65; RESP 20; TEMP 36.1; O2SAT 99
[2023-07-20 06:19] LABS: Glucose Point of Care 294 mg/dl (65-105)
[2023-07-20 06:29] LABS: Alanine Aminotransferase 12 U/L (6-50); Albumin Level 3.1 g/dL (3.5-5.1); Alkaline Phosphatase 68 U/L (38-126); Anion Gap 5 mmol/L (8-16); Aspartate Amino Transferase 22 U/L (17-59); Bilirubin,Total 0.7 mg/dL (0.2-1.3); Blood Urea Nitrogen 25 mg/dL (9-20); Calcium 8.3 mg/dL (8.4-10.2); Carbon Dioxide 25 mmol/L (22-30); Chloride 108 mmol/L (98-107); Estimated CRCL calculation 80 ml/min; Estimated Glomerular Filt Rate > 60; Glucose 176 mg/dL (65-110); Potassium 3.2 mmol/L (3.4-5.0); Sodium 138 mmol/L (137-145)
--- NOTE | 2023-07-20 06:31 | PC.NURSE ---
Pts says there is family drama and prefer the Nephew Farhad Q. not be allowed in the room for fear he will upset the pt
--- NOTE | 2023-07-20 08:08 | WPDUROPN2 ---
Progress Note: A&P Assessment and Plan (1) Gross hematuria: Code(s): R31.0 - Gross hematuria Status: Acute (2) Bladder mass: Code(s): N32.89 - Other specified disorders of bladder Status: Acute Plan plan for cystoscopy, possible clot evacuation, possible transurethral resection of bladder tumor on 07/21/2023. consents to be obtained from Subjective Subjective Date/Time Seen: 07/20/23 08:08 Interval history: gross hematuria continues. CBI is running with pink urine. CT scan findings reviewed with family present in Exam Narrative: patient sleeping pink urine CBI Objective Data Vital Signs Vital Signs: Vital Signs - 24 hr 07/19/23 14:00 07/19/23 22:00 07/19/23 20:00 Temperature 97.3 F L 98.8 F Pulse Rate 61 66 Respiratory Rate 16 21 H Blood Pressure 132/53 L 130/53 L Pulse Oximetry 99 100 Oxygen Delivery Room Air 07/20/23 06:00 Temperature 97.0 F L Pulse Rate 65 Respiratory Rate 20 Blood Pressure 168/90 H Pulse Oximetry 99 Oxygen Delivery Intake/Output Intake/Output: Intake & Output 07/17/23 07/18/23 07/19/23 07/20/23 23:59 23:59 23:59 23:59 Intake Total 1000 1060 Output Total 800 80886 1700 Balance 200 -14435 -1703 Meds/Results Medications: Active Medications Generic Name Dose Route Start Last Admin Trade Name Freq PRN Reason Stop Dose Admin Acetaminophen 650 mg 07/18/23 22:54 Acetaminophen 325 Mg Tablet PO Q6H PRN Mild Pain (1-3) or Fever Dextrose 12.5 gm 07/18/23 22:54 Dextrose 50% 25 Gm/50 Ml Syringe IV PUSH PRN PRN Hypoglycemia Protocol Glucagon 1 mg 07/18/23 22:54 Glucagon For Inj 1 Mg Vial IM PRN PRN Hypoglycemia Protocol Glucose 15 gm 07/18/23 22:54 Glucose Oral Gel 15 Gm Of Glucse In 37.5 Gm Tube PO PRN PRN Hypoglycemia Protocol Dextrose 1,000 mls @ 100 mls/hr 07/18/23 22:54 Dextrose 5% 1,000 Ml IVPB PRN PRN Hypoglycemia Protocol Insulin Aspart 2 - 5 units 07/19/23 08:00 07/19/23 17:52 Insulin Aspart (*Bkc) 100 Units/Ml SUB-Q 4 units TIDWM JAIDEN Administration Protocol Insulin Aspart 1 - 2 units 07/19/23 21:00 07/20/23 00:37 Insulin Aspart (*Bkc) 100 Units/Ml SUB-Q 1 units HS JAIDEN Administration Protocol Quetiapine Fumarate 25 mg 07/19/23 21:00 07/20/23 00:38 Quetiapine Fumarate 25 Mg Tablet PO 25 mg HS JAIDEN Administration Radiology Results: ITS Impressions Pelvis Ultrasound 07/18/23 16:57 IMPRESSION: Limited evaluation due to decompression of the urinary bladder by a Celestin catheter. Labs Labs: Laboratory Results - last 24 hr 07/19/23 07/19/23 07/19/23 11:47 16:59 19:26 WBC RBC Hgb Hct MCV MCH MCHC RDW Plt Count MPV Immature Gran % (Auto) Neut % (Auto) Lymph % (Auto) [place] % (Auto) Eos % (Auto) Baso % (Auto) Lymph # (Auto) [place] # (Auto) Eos # (Auto) Baso # (Auto) Abs Immat Gran (auto) Absolute Neuts (auto) Absolute Nucleated RBC Nucleated RBC % Sodium Potassium Chloride Carbon Dioxide Anion Gap BUN Creatinine Estim Creat Clear Calc Estimated GFR Glucose POC Capillary Glucose 201 H 316 H 294 H Calcium Total Bilirubin AST ALT Alkaline Phosphatase Total Protein Albumin 07/20/23 05:29 WBC 7.6 RBC 3.59 L Hgb 10.5 L Hct 32.5 L MCV 90.5 MCH 29.2 MCHC 32.3 RDW 15.0 H Plt Count 158 MPV 11.9 H Immature Gran % (Auto) 0.4 Neut % (Auto) 70.3 Lymph % (Auto) 16.1 L [place] % (Auto) 10.5 H Eos % (Auto) 1.6 Baso % (Auto) 1.1 Lymph # (Auto) 1.22 [place] # (Auto) 0.8 H Eos # (Auto) 0.1 Baso # (Auto) 0.1 Abs Immat Gran (auto) 0.03 Absolute Neuts (auto) 5.3 Absolute Nucleated RBC 0.0 Nucleated RBC % 0.0 Sodium 138 Potassium 3.2 L Chloride 108 H Carbon Dioxide
[2023-07-20 09:19] LABS: Glucose Point of Care 180 mg/dl (65-105)
[2023-07-20] MEDS: SERTRALINE HCL 25 MG TABLET PO ×2 (10:17→19:48)
[2023-07-20] MEDS: ATORVASTATIN 10 MG TABLET PO (10:17)
[2023-07-20] MEDS: LOSARTAN POTASSIUM 100 MG TABLET PO (10:17)
[2023-07-20] MEDS: FINASTERIDE 5 MG TABLET PO (10:18)
--- NOTE | 2023-07-20 10:45 | PC.NURSE ---
Pt's , Leann, states the pt's nephew, Farhad Jones, is not to be allowed to have any information on the pt and is not allowed in the pt's room. Leann states that Farhad has been known to be violent in the past. electric meter tester Mari and security notified.
[2023-07-20 12:06] LABS: Glucose Point of Care 312 mg/dl (65-105)
[2023-07-20 14:00] VITALS: BP 131/56; PULSE 59; RESP 16; TEMP 36.8; O2SAT 99
--- NOTE | 2023-07-20 14:54 | PM.IMPN ---
Progress Note: A&P Assessment and Plan (1) Gross hematuria: Code(s): R31.0 - Gross hematuria Status: Acute Assessment and Plan: Appreciate urology consultation, continue CBI cysto planned soon with possible bladder tumor resection (2) Type 2 diabetes mellitus: Code(s): E11.9 - Type 2 diabetes mellitus without complications Status: Acute Assessment and Plan: Blood glucose reviewed 07/20 (3) Dementia: Code(s): F03.90 - Unspecified dementia, unspecified severity, without behavioral disturbance, psychotic disturbance, mood disturbance, and anxiety Status: Acute Plan DVT prophylaxis with SCDs GI prophylaxis not indicated Code status full code Subjective Date/time seen: 07/20/23 14:54 Interval history: 78-year-old male with dementia, hypertension, hyperlipidemia, and type 2 diabetes mellitus who presented to the emergency department via EMS from [place] for evaluation of hematuria is currently being treated with CBI. Resting comfortably, no complaints. Family at bedside. All questions answered. Still with bright red blood in rogers bag. Review of Systems Review of Systems: 12 point review of systems was assessed and was negative except as noted in the HPI Exam Narrative: General: Somnolent, no complaints, no acute distress HEENT: Atraumatic, normocephalic, mucous membranes moist CV: Regular rate and rhythm, S1, S2 Lungs: Clear to auscultation bilaterally, no rales or crackles noted, no wheezes, good air entry Abdomen: Soft, nontender, nondistended Extremities: Normal to inspection Skin: No rashes noted, no lesions or wounds seen Psych: Unable to assess Objective Data Vital Signs Vital Signs: Vital Signs - 24 hr 07/19/23 22:00 07/19/23 20:00 07/20/23 06:00 Temperature 98.8 F 97.0 F L Pulse Rate 66 65 Respiratory Rate 21 H 20 Blood Pressure 130/53 L 168/90 H Pulse Oximetry 100 99 Oxygen Delivery Room Air 07/20/23 08:00 07/20/23 14:00 Temperature 98.2 F Pulse Rate 59 L Respiratory Rate 16 Blood Pressure 131/56 L Pulse Oximetry 99 Oxygen Delivery Room Air Intake/Output Intake/Output: Intake & Output 07/17/23 07/18/23 07/19/23 07/20/23 23:59 23:59 23:59 23:59 Intake Total 1000 1060 480 Output Total 635 24144 1735 Balance 031 -93876 -0810 Meds/Results Medications: Active Medications Generic Name Dose Route Start Last Admin Trade Name Sammyq PRN Reason Stop Dose Admin Acetaminophen 650 mg 07/18/23 22:54 Acetaminophen 325 Mg Tablet PO Q6H PRN Mild Pain (1-3) or Fever Atorvastatin Calcium 10 mg 07/20/23 09:50 07/20/23 10:17 Atorvastatin 10 Mg Tablet PO 10 mg DAILY JAIDEN Administration Dextrose 12.5 gm 07/18/23 22:54 Dextrose 50% 25 Gm/50 Ml Syringe IV PUSH PRN PRN Hypoglycemia Protocol Finasteride 5 mg 07/20/23 09:50 07/20/23 10:18 Finasteride 5 Mg Tablet PO 5 mg DAILY JAIDEN Administration Glucagon 1 mg 07/18/23 22:54 Glucagon For Inj 1 Mg Vial IM PRN PRN Hypoglycemia Protocol Glucose 15 gm 07/18/23 22:54 Glucose Oral Gel 15 Gm Of Glucse In 37.5 Gm Tube PO PRN PRN Hypoglycemia Protocol Dextrose 1,000 mls @ 100 mls/hr 07/18/23 22:54 Dextrose 5% 1,000 Ml IVPB PRN PRN Hypoglycemia Protocol Insulin Aspart 2 - 5 units 07/19/23 08:00 07/20/23 13:36 Insulin Aspart (*Bkc) 100 Units/Ml SUB-Q 4 units TIDWM JAIDEN Administration Protocol Insulin Aspart 1 - 2 units 07/19/23 21:00 07/20/23 00:37 Insulin Aspart (*Bkc) 100 Units/Ml SUB-Q 1 units HS JAIDEN Administration Protocol Losartan Potassium 100 mg 07/20/23 09:50 07/20/23 10:17 Losartan Potassium 100 Mg Tablet PO 100 mg DAILY JAIDEN Administration Melatonin 10 mg 07/20/23 21:00 Melatonin 5 Mg Tablet PO HS PRN Sleep Quetiapine Fumarate 25 mg 07/19/23 21:00 07/20/23 00
[2023-07-20 17:00] LABS: Glucose Point of Care 175 mg/dl (65-105)
[2023-07-20] MEDS: BISACODYL 5 MG TABLET EC PO (17:37)
[2023-07-20] MEDS: MELATONIN 5 MG TABLET 10 MG PO (19:45)
[2023-07-20] MEDS: TAMSULOSIN HCL 0.4 MG CAPSULE PO (19:47)
[2023-07-20 23:25] VITALS: BP 155/70; PULSE 87; RESP 18; TEMP 36.1; O2SAT 97
[2023-07-21] VITALS (11 sets, daily range): BP systolic 103–154; BP diastolic 46–94; PULSE 63–90; RESP 12–21; TEMP 36.1–36.4; O2SAT 99–100
--- NOTE | 2023-07-21 06:50 | WPDHPUPDATE1 ---
History and Physical Update Update Date/Time: 07/21/23 06:50 History and Physical has been reviewed, including an updated exam of the patient. There are NO changes in the patient's condition. Risks, benefits, and alternatives have been discussed and questions answered. Patient agrees to proceed with procedure.
[2023-07-21 08:35] LABS: Glucose Point of Care 252 mg/dl (65-105)
--- NOTE | 2023-07-21 08:58 | PCPTNOTE ---
Attempted PT evaluation. Pt was sleeping and family asked that the pt not to be disturbed at this time. RN aware. Will follow.
[2023-07-21 09:45] LABS: Basophils Absolute Auto 0.1 K/mm3 (0.0-0.1); Basophils Percent Auto 0.8 % (0.2-1.2); Eosinophils Absolute Auto 0.1 K/mm3 (0-0.3); Eosinophils Percent Auto 0.6 % (0-4.4); Hematocrit 32.5 % (42.0-52.0); Hemoglobin 10.5 g/dL (14.0-18.0); Immature Granulocyte Absolute 0.05 K/mm3 (0.00-0.031); Immature Granulocyte Percent A 0.5 % (0-0.5); Lymphocytes Percent Auto 9.6 % (18.3-44.2); Mean Corpuscular HGB Conc 32.3 g/dl (32-36); Mean Corpuscular Hemoglobin 29.6 pg (26-34); Mean Corpuscular Volume 91.5 fl (80-100); Mean Platelet Volume 12.3 fl (7.4-10.4); Monocytes Absolute Auto 1.1 K/mm3 (0.1-0.6); Monocytes Percent Auto 10.7 % (2.6-8.5); Neutrophils Absolute Auto 8.1 K/mm3 (1.3-6.7); Neutrophils Percent Auto 77.8 % (45.5-73.1); Platelet Count Result 179 k/mm3 (150-375); Red Blood Count 3.55 M/mm3 (4.6-6.20); Red Cell Distribution Width 14.9 % (11.5-14.5); White Blood Count 10.4 K/mm3 (4.5-10.0)
--- NOTE | 2023-07-21 09:49 | PCOTNOTE ---
Attempted OT evaluation. Pt was sleeping and family asked that the pt not to be disturbed at this time. RN aware. Will follow.
[2023-07-21] MEDS: INSULIN ASPART (*BKC) 100 UNITS/ML SUB-Q ×2 (09:56→20:42)
[2023-07-21 10:11] LABS: Alanine Aminotransferase 13 U/L (6-50); Albumin Level 3.5 g/dL (3.5-5.1); Alkaline Phosphatase 86 U/L (38-126); Anion Gap 8 mmol/L (8-16); Aspartate Amino Transferase 21 U/L (17-59); Bilirubin,Total 0.8 mg/dL (0.2-1.3); Blood Urea Nitrogen 22 mg/dL (9-20); Carbon Dioxide 26 mmol/L (22-30); Chloride 107 mmol/L (98-107); Estimated CRCL calculation 80 ml/min; Estimated Glomerular Filt Rate > 60; Glucose 250 mg/dL (65-110); Potassium 4.3 mmol/L (3.4-5.0); Sodium 141 mmol/L (137-145)
[2023-07-21 11:52] LABS: Glucose Point of Care 210 mg/dl (65-105)
[2023-07-21] MEDS: LACTATED RINGERS 1,000 ML 30 ML IV CONT (14:00)
--- NOTE | 2023-07-21 14:29 | WPDANESEPPF ---
Anes - Initial Pre Proc Eval Procedure: Operation Date: 07/21/23 14:00 Proposed Procedures p Cystoscopy, Evacuation Bladder Clots - Kevin Garza MD Date/Time: 07/21/23 14:29 Surgeon: Lou Cardona DO Pre Op Diagnosis: gross hematuria Patient Data Age: 78 Gender: M Height: 1.6 m Weight: 56.5 kg Last Vital Signs Temp 36.2 C L 07/21/23 14:17 Pulse 64 07/21/23 14:17 Resp 16 07/21/23 14:17 BP 141/46 H 07/21/23 14:17 Pulse Ox 99 07/21/23 14:17 O2 Del Method Room Air 07/21/23 14:17 Allergies Allergy/AdvReac Type Severity Reaction Status Date / Time No Known Allergies Allergy Unknown Verified 07/17/23 19:47 Home Medications Medication Instructions Recorded Confirmed Type atorvastatin 10 mg tablet 10 mg PO DAILY 12/01/19 07/19/23 History losartan 100 mg tablet 100 mg PO DAILY 12/01/19 07/19/23 History finasteride 5 mg tablet 5 mg PO DAILY 07/19/23 07/19/23 History melatonin 10 mg tablet 10 mg PO HS PRN Sleep 07/19/23 07/19/23 History metformin 500 mg tablet 1,000 mg PO BID 07/19/23 07/19/23 History sertraline 25 mg tablet 25 mg PO DAILY 07/19/23 07/19/23 History tamsulosin 0.4 mg capsule 0.4 mg PO HS 07/19/23 07/20/23 History Laboratory Tests 07/20/23 07/21/23 07/21/23 16:58 06:51 08:31 WBC 10.4 H K/mm3 (4.5-10.0) RBC 3.55 L M/mm3 (4.6-6.20) Hgb 10.5 L g/dL (14.0-18.0) Hct 32.5 L % (42.0-52.0) MCV 91.5 fl (80-100) MCH 29.6 pg (26-34) MCHC 32.3 g/dl (32-36) RDW 14.9 H % (11.5-14.5) Plt Count 179 k/mm3 (150-375) MPV 12.3 H fl (7.4-10.4) Immature Gran % (Auto) 0.5 % (0-0.5) Neut % (Auto) 77.8 H % (45.5-73.1) Lymph % (Auto) 9.6 L % (18.3-44.2) [place] % (Auto) 10.7 H % (2.6-8.5) Eos % (Auto) 0.6 % (0-4.4) Baso % (Auto) 0.8 % (0.2-1.2) Lymph # (Auto) 1.00 K/mm3 (0.9-3.2) [place] # (Auto) 1.1 H K/mm3 (0.1-0.6) Eos # (Auto) 0.1 K/mm3 (0-0.3) Baso # (Auto) 0.1 K/mm3 (0.0-0.1) Abs Immat Gran (auto) 0.05 H K/mm3 (0.00-0.031) Absolute Neuts (auto) 8.1 H K/mm3 (1.3-6.7) Absolute Nucleated RBC 0.0 K/mm3 (0.0-0.012) Nucleated RBC % 0.0 % (0.0-0.2) Sodium 141 mmol/L (137-145) Potassium 4.3 mmol/L (3.4-5.0) Chloride 107 mmol/L (98-107) Carbon Dioxide 26 mmol/L (22-30) Anion Gap 8 mmol/L (8-16) BUN 22 H mg/dL (9-20) Creatinine 0.50 L mg/dL (0.7-1.3) Estim Creat Clear Calc 80 ml/min Estimated GFR > 60 (59 - ) Glucose 250 H mg/dL (65-110) POC Capillary Glucose 175 H mg/dl 252 H mg/dl (65-105) (65-105) Calcium 9.0 mg/dL (8.4-10.2) Total Bilirubin 0.8 mg/dL (0.2-1.3) AST 21 U/L (17-59) ALT 13 U/L (6-50) Alkaline Phosphatase 86 U/L (38-126) Total Protein 7.0 g/dL (6.3-8.2) Albumin 3.5 g/dL (3.5-5.1) 07/21/23 11:46 WBC RBC Hgb Hct MCV MCH MCHC RDW Plt Count MPV Immature Gran % (Auto) Neut % (Auto) Lymph % (Auto) [place] % (Auto) Eos % (Auto) Baso % (Auto) Lymph # (Auto) [place] # (Auto) Eos # (Auto) Baso # (Auto) Abs Immat Gran (auto) Absolute Neuts (auto) Absolute Nucleated RBC Nucleated RBC % Sodium Potassium Chloride Carbon Dioxide Anion Gap BUN Creatinine Estim Creat Clear Calc Estimated GFR Glucose POC Capillary Glucose 210 H mg/dl (65-105) Calcium Total Bilirubin AST ALT Alkaline Phosphatase Total Protein Albumin Patient
[2023-07-21] MEDS: LIDOCAINE HCL 2% GEL UROJET 10 ML PKG MUCOUS MEM (15:45)
--- NOTE | 2023-07-21 15:45 | PM.IMPN ---
Progress Note: A&P Assessment and Plan (1) Gross hematuria: Code(s): R31.0 - Gross hematuria Status: Acute Assessment and Plan: Appreciate urology consultation, continue CBI cysto planned 07/21 with possible bladder tumor resection (2) Type 2 diabetes mellitus: Code(s): E11.9 - Type 2 diabetes mellitus without complications Status: Acute Assessment and Plan: Blood glucose reviewed 07/21 (3) Dementia: Code(s): F03.90 - Unspecified dementia, unspecified severity, without behavioral disturbance, psychotic disturbance, mood disturbance, and anxiety Status: Acute Assessment and Plan: seroquel 25 mg QHS working well Plan DVT prophylaxis with SCDs GI prophylaxis not indicated Code status full code Subjective Date/time seen: 07/21/23 15:45 Interval history: 78-year-old male with dementia, hypertension, hyperlipidemia, and type 2 diabetes mellitus who presented to the emergency department via EMS from [place] for evaluation of hematuria is currently being treated with CBI. In cystoscopy Exam Narrative: per urology, in cystoscopy Objective Data Vital Signs Vital Signs: Vital Signs - 24 hr 07/20/23 20:00 07/21/23 06:00 07/20/23 23:25 Temperature 97.1 F L 97.0 F L Pulse Rate 73 87 Respiratory Rate 21 H 18 Blood Pressure 136/46 L 155/70 H Pulse Oximetry 100 97 Oxygen Delivery Room Air 07/21/23 10:00 07/21/23 14:17 Temperature 97.2 F L Pulse Rate 64 Respiratory Rate 16 Blood Pressure 141/46 H Pulse Oximetry 99 Oxygen Delivery Room Air Room Air Intake/Output Intake/Output: Intake & Output 07/18/23 07/19/23 07/20/23 07/21/23 23:59 23:59 23:59 23:59 Intake Total 1000 1060 1220 200 Output Total 386 32833 2454 3641 Balance 181 -98042 -3492 -9421 Meds/Results Medications: Active Medications Generic Name Dose Route Start Last Admin Trade Name Freq PRN Reason Stop Dose Admin Acetaminophen 650 mg 07/18/23 22:54 Acetaminophen 325 Mg Tablet PO Q6H PRN Mild Pain (1-3) or Fever Atorvastatin Calcium 10 mg 07/20/23 09:50 07/20/23 10:17 Atorvastatin 10 Mg Tablet PO 10 mg DAILY JAIDEN Administration Bisacodyl 5 mg 07/20/23 15:00 07/20/23 17:37 Bisacodyl 5 Mg Tablet Ec PO 5 mg QAM JAIDEN Administration Dextrose 12.5 gm 07/18/23 22:54 Dextrose 50% 25 Gm/50 Ml Syringe IV PUSH PRN PRN Hypoglycemia Protocol Docusate Sodium 100 mg 07/20/23 14:56 Docusate Sodium 100 Mg Capsule PO Q12H PRN Constipation Fentanyl Citrate 25 mcg 07/21/23 14:35 Fentanyl Citrate Inj (*Crx) 100 Mcg/2 Ml Vial IV PUSH Q2M PRN Pain Finasteride 5 mg 07/20/23 09:50 07/20/23 10:18 Finasteride 5 Mg Tablet PO 5 mg DAILY JAIDEN Administration Glucagon 1 mg 07/18/23 22:54 Glucagon For Inj 1 Mg Vial IM PRN PRN Hypoglycemia Protocol Glucose 15 gm 07/18/23 22:54 Glucose Oral Gel 15 Gm Of Glucse In 37.5 Gm Tube PO PRN PRN Hypoglycemia Protocol Dextrose 1,000 mls @ 100 mls/hr 07/18/23 22:54 Dextrose 5% 1,000 Ml IVPB PRN PRN Hypoglycemia Protocol Lactated Ringer's 1,000 mls @ 30 mls/hr 07/21/23 14:35 Lr - Lactated Ringers Iv IV CONT .Q24H JAIDEN Lactated Ringer's 1,000 mls @ 30 mls/hr 07/21/23 14:35 07/21/23 14:00 Lr - Lactated Ringers Iv IV CONT 30 mls/hr .Q24H JAIDEN Administration Insulin Aspart 2 - 5 units 07/19/23 08:00 07/21/23 11:55 Insulin Aspart (*Bkc) 100 Units/Ml SUB-Q Not Given TIDWM JAIDEN Protocol Insulin Aspart 1 - 2 units 07/19/23 21:00 07/20/23 22:58 Insulin Aspart (*Bkc) 100 Units/Ml SUB-Q Not Given HS JAIDEN Protocol Losartan Potassium 100 mg 07/20/23 09:50 07/20/23 10:17 Losartan Potassium 100 Mg Tablet PO 100 mg DAILY JAIDEN Administration Melatonin 10 mg 07/20/23 21:00 07/20/23 19:45 Melatonin 5 Mg Tab
--- NOTE | 2023-07-21 15:58 | W.PM.PROC2 ---
Procedure Note - Detailed Date of Procedure 07/21/23 Pre-op Diagnosis Gross hematuria Post-op Diagnosis Same Procedure Performed cystoscopy, clot evacuation, TURBT ( small, 2 cm) Surgeon Kevin Garza MD Anesthesia General Description of Procedure the patient is brought to the operative suite where she was prepped and draped in routine sterile fashion while in dorsal lithotomy position after the uneventful induction of a general LMA anesthetic. Cystoscopy was undertaken with a 21 rigid cystoscope. He has a moderate-sized clot in the dependent portion which was evacuated with a Shaheed syringe. The bladder was then very carefully inspected. He has some posterior wall catheter cystitis. 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 Remainder of the bladder mucosa without suspicion of neoplastic changes. His prostatic urethra was 2.5 cm with moderate lateral lobe hyperplasia and a small median lobe. The cystoscope was exchanged for a 24 F resectoscope. The bladder tumors resected in its entirety with an attempt made to include detrusor muscle for pathological evaluation of invasion. The base and periphery was cauterized with rollerball. Resectoscope was removed and a 22 F hematuria catheter was placed to drainage. The patient tolerated the procedure well was taken recovery room in good condition. Urine Output 925 Pathology Yes Complications No immediate complications Condition Stable Disposition PACU
[2023-07-21 16:18] LABS: Glucose Point of Care 184 mg/dl (65-105)
[2023-07-21] MEDS: LOSARTAN POTASSIUM 100 MG TABLET PO (17:11)
[2023-07-21] MEDS: BISACODYL 5 MG TABLET EC PO (17:11)
[2023-07-21] MEDS: ATORVASTATIN 10 MG TABLET PO (17:11)
[2023-07-21] MEDS: FINASTERIDE 5 MG TABLET PO (17:11)
[2023-07-21 17:16] LABS: Glucose Point of Care 185 mg/dl (65-105)
[2023-07-21] MEDS: polyethylene glycoL 3350 17 GM POWD.PACK PO (18:13)
[2023-07-21] MEDS: QUEtiapine FUMARATE 25 MG TABLET PO (18:45)
--- NOTE | 2023-07-21 18:46 | PC.NURSE ---
Patient becoming very anxious. Attempting to pull catheter out despite RN and family at bedside trying to redirect his behavior. RN spoke with Brendan and molina to give quetiapine early to calm patient down.
[2023-07-21] MEDS: QUEtiapine FUMARATE 25 MG TABLET 75 MG PO (19:12)
[2023-07-21] MEDS: SERTRALINE HCL 25 MG TABLET PO (19:13)
[2023-07-21] MEDS: TAMSULOSIN HCL 0.4 MG CAPSULE PO (19:13)
[2023-07-21] MEDS: HALOPERIDOL LACTATE 5 MG/ML VIAL IM (20:42)
[2023-07-21] MEDS: diphenhydrAMINE HCl INJ 50 MG/ML VIAL IV PUSH (21:41)
[2023-07-21] MEDS: LORazepam INJ (*CRX) 2 MG/ML VIAL 1 MG IV PUSH (21:41)
[2023-07-22 05:07] LABS: Basophils Percent Auto 0.4 % (0.2-1.2); Eosinophils Percent Auto 0.1 % (0-4.4); Hematocrit 31.1 % (42.0-52.0); Hemoglobin 9.7 g/dL (14.0-18.0); Immature Granulocyte Absolute 0.05 K/mm3 (0.00-0.031); Immature Granulocyte Percent A 0.4 % (0-0.5); Lymphocytes Absolute Auto 0.76 K/mm3 (0.9-3.2); Lymphocytes Percent Auto 6.8 % (18.3-44.2); Mean Corpuscular HGB Conc 31.2 g/dl (32-36); Mean Corpuscular Hemoglobin 28.5 pg (26-34); Mean Corpuscular Volume 91.5 fl (80-100); Monocytes Percent Auto 8.5 % (2.6-8.5); Neutrophils Absolute Auto 9.4 K/mm3 (1.3-6.7); Neutrophils Percent Auto 83.8 % (45.5-73.1); Platelet Count Result 169 k/mm3 (150-375); Red Cell Distribution Width 14.7 % (11.5-14.5); White Blood Count 11.2 K/mm3 (4.5-10.0)
[2023-07-22 05:18] LABS: Potassium 4.6 mmol/L (3.4-5.0)
[2023-07-22 05:26] LABS: Alanine Aminotransferase 13 U/L (6-50); Albumin Level 3.3 g/dL (3.5-5.1); Alkaline Phosphatase 86 U/L (38-126); Anion Gap 5 mmol/L (8-16); Aspartate Amino Transferase 19 U/L (17-59); Bilirubin,Total 0.7 mg/dL (0.2-1.3); Blood Urea Nitrogen 23 mg/dL (9-20); Calcium 8.8 mg/dL (8.4-10.2); Carbon Dioxide 26 mmol/L (22-30); Chloride 106 mmol/L (98-107); Estimated CRCL calculation 68 ml/min; Estimated Glomerular Filt Rate > 60; Glucose 280 mg/dL (65-110); Sodium 137 mmol/L (137-145)
[2023-07-22 06:00] VITALS: BP 120/44; PULSE 73; RESP 20; TEMP 35.9; O2SAT 99
[2023-07-22 06:35] LABS: Glucose Point of Care 248 mg/dl (65-105)
--- NOTE | 2023-07-22 06:42 | WPDUROPN2 ---
Progress Note: A&P Assessment and Plan (1) Bladder mass: Code(s): N32.89 - Other specified disorders of bladder Status: Acute (2) Gross hematuria: Code(s): R31.0 - Gross hematuria Status: Acute Assessment and Plan: Hematuria d/t small urothelial ca. (which I resected) and BPH (for which I'll start Finasteride). Urine now clear. Will stop CBI now and, tentatively, plan catheter our tomorrow morning. Subjective Subjective Date/Time Seen: 07/22/23 06:42 Interval history: Agitated overnight, resting now. Urine clear on slow CBI. Review of Systems Review of Systems: ROS unobtainable: Yes unobtainable due to mental status Exam Const: General: no acute distress Resp: Effort & Inspection: normal respiratory effort GI: Inspection: non-distended GI Palp: No abdominal tenderness and No Guarding due to palpation present (GI) Auscultation: normal bowel sounds Objective Data Vital Signs Vital Signs: Vital Signs - 24 hr 07/21/23 10:00 07/21/23 14:17 07/21/23 15:56 Temperature 97.2 F L 97.1 F L Pulse Rate 64 64 Respiratory Rate 16 12 Blood Pressure 141/46 H 103/50 L Pulse Oximetry 99 100 Oxygen Delivery Room Air Room Air Simple Face Mask Oxygen Flow Rate 8 07/21/23 16:06 07/21/23 16:10 07/21/23 16:25 Temperature Pulse Rate 68 70 Respiratory Rate 15 18 Blood Pressure 125/94 H 137/62 Pulse Oximetry 100 99 100 Oxygen Delivery Room Air Room Air Room Air Oxygen Flow Rate 07/21/23 16:53 07/21/23 16:50 07/21/23 17:05 Temperature 97.6 F 97.6 F 96.9 F L Pulse Rate 63 63 65 Respiratory Rate 16 16 16 Blood Pressure 144/52 H 144/52 H 118/65 Pulse Oximetry 100 100 100 Oxygen Delivery Oxygen Flow Rate 07/21/23 17:35 07/21/23 22:00 07/21/23 20:00 Temperature 97.4 F L 97.0 F L Pulse Rate 73 90 Respiratory Rate 16 20 Blood Pressure 154/55 H 107/62 Pulse Oximetry 99 99 Oxygen Delivery Room Air Oxygen Flow Rate Intake/Output Intake/Output: Intake & Output 1207/20/23 07/21/23 07/22/23 23:59 23:59 23:59 23:59 Intake Total 1060 1220 660 Output Total 83598 2906 0354 [facility] [id number] Meds/Results Medications: Active Medications Generic Name Dose Route Start Last Admin Trade Name Freq PRN Reason Stop Dose Admin Acetaminophen 650 mg 07/18/23 22:54 Acetaminophen 325 Mg Tablet PO Q6H PRN Mild Pain (1-3) or Fever Atorvastatin Calcium 10 mg 07/20/23 09:50 07/21/23 17:11 Atorvastatin 10 Mg Tablet PO 10 mg DAILY JAIDEN Administration Bisacodyl 5 mg 07/20/23 15:00 07/21/23 17:11 Bisacodyl 5 Mg Tablet Ec PO 5 mg QAM JAIDEN Administration Bisacodyl 10 mg 07/21/23 17:17 Bisacodyl 10 Mg Suppository RECTAL QAM PRN Constipation Dextrose 12.5 gm 07/18/23 22:54 Dextrose 50% 25 Gm/50 Ml Syringe IV PUSH PRN PRN Hypoglycemia Protocol Docusate Sodium 100 mg 07/20/23 14:56 Docusate Sodium 100 Mg Capsule PO Q12H PRN Constipation Finasteride 5 mg 07/20/23 09:50 07/21/23 17:11 Finasteride 5 Mg Tablet PO 5 mg DAILY JAIDEN Administration Glucagon 1 mg 07/18/23 22:54 Glucagon For Inj 1 Mg Vial IM PRN PRN Hypoglycemia Protocol Glucose 15 gm 07/18/23 22:54 Glucose Oral Gel 15 Gm Of Glucse In 37.5 Gm Tube PO PRN PRN Hypoglycemia Protocol Dextrose 1,000 mls @ 100 mls/hr 07/18/23 22:54 Dextrose 5% 1,000 Ml IVPB PRN PRN Hypoglycemia Protocol Insulin Aspart 2 - 5 units 07/19/23 08:00 07/21/23 17:11 Insulin Aspart (*Bkc) 100 Units/Ml SUB-Q Not Given TIDWM JAIDEN Protocol Insulin Aspart 1 - 2 units 07/19/23 21:00 07/21/23 20:42 Insulin Aspart (*Bkc) 100 Units/Ml SUB-Q 1 units HS JAIDEN Administration Protocol Losartan Potassium 100 mg 07/20/23 09:50 07/21/23 17:11 Losartan Potassium 100 Mg Tablet PO 100 mg DAILY JAIDEN Administration M
--- NOTE | 2023-07-22 08:25 | WPDANESPN ---
Anes - Prog Note Post-Op Date/Time: 07/22/23 08:25 Cardiovascular status: normal Respiratory status: normal Airway patency: baseline Mental status: baseline Post-Op hydration status: normal Vital Signs: Last Vital Signs Temp 35.9 C L 07/22/23 06:00 Pulse 73 07/22/23 06:00 Resp 20 07/22/23 06:00 BP 120/44 L 07/22/23 06:00 Pulse Ox 99 07/22/23 06:00 O2 Del Method Room Air 07/21/23 20:00 O2 Flow Rate 8 07/21/23 15:56 Pain Score (VAS): 0 I/O: Intake & Output 07/21/23 07/22/23 07/22/23 23:59 07:59 15:59 Intake Total 460 Output Total 925 6400 Balance -465 -6400 Laboratory Tests 07/22/23 04:54 07/22/23 04:54 07/21/23 07/21/23 07/21/23 06:51 08:31 11:46 WBC 10.4 H RBC 3.55 L Hgb 10.5 L Hct 32.5 L MCV 91.5 MCH 29.6 MCHC 32.3 RDW 14.9 H Plt Count 179 MPV 12.3 H Immature Gran % (Auto) 0.5 Neut % (Auto) 77.8 H Lymph % (Auto) 9.6 L Freestone % (Auto) 10.7 H Eos % (Auto) 0.6 Baso % (Auto) 0.8 Lymph # (Auto) 1.00 Freestone # (Auto) 1.1 H Eos # (Auto) 0.1 Baso # (Auto) 0.1 Abs Immat Gran (auto) 0.05 H Absolute Neuts (auto) 8.1 H Absolute Nucleated RBC 0.0 Nucleated RBC % 0.0 Sodium 141 Potassium 4.3 Chloride 107 Carbon Dioxide 26 Anion Gap 8 BUN 22 H Creatinine 0.50 L Estim Creat Clear Calc 80 Estimated GFR > 60 Glucose 250 H POC Capillary Glucose 252 H 210 H Calcium 9.0 Total Bilirubin 0.8 AST 21 ALT 13 Alkaline Phosphatase 86 Total Protein 7.0 Albumin 3.5 07/21/23 07/21/23 07/21/23 16:16 17:08 20:09 WBC RBC Hgb Hct MCV MCH MCHC RDW Plt Count MPV Immature Gran % (Auto) Neut % (Auto) Lymph % (Auto) Freestone % (Auto) Eos % (Auto) Baso % (Auto) Lymph # (Auto) Freestone # (Auto) Eos # (Auto) Baso # (Auto) Abs Immat Gran (auto) Absolute Neuts (auto) Absolute Nucleated RBC Nucleated RBC % Sodium Potassium Chloride Carbon Dioxide Anion Gap BUN Creatinine Estim Creat Clear Calc Estimated GFR Glucose POC Capillary Glucose 184 H 185 H 248 H Calcium Total Bilirubin AST ALT Alkaline Phosphatase Total Protein Albumin 07/22/23 04:54 WBC 11.2 H RBC 3.40 L Hgb 9.7 L Hct 31.1 L MCV 91.5 MCH 28.5 MCHC 31.2 L RDW 14.7 H Plt Count 169 MPV 11.0 H Immature Gran % (Auto) 0.4 Neut % (Auto) 83.8 H Lymph % (Auto) 6.8 L Freestone % (Auto) 8.5 Eos % (Auto) 0.1 Baso % (Auto) 0.4 Lymph # (Auto) 0.76 L Freestone # (Auto) 1.0 H Eos # (Auto) 0.0 Baso # (Auto) 0.0 Abs Immat Gran (auto) 0.05 H Absolute Neuts (auto) 9.4 H Absolute Nucleated RBC 0.0 Nucleated RBC % 0.0 Sodium 137 Potassium 4.6 Chloride 106 Carbon Dioxide 26 Anion Gap 5 L BUN 23 H Creatinine 0.60 L Estim Creat Clear Calc 68 Estimated GFR > 60 Glucose 280 H POC Capillary Glucose Calcium 8.8 Total Bilirubin 0.7 AST 19 ALT 13 Alkaline Phosphatase 86 Total Protein 6.0 L Albumin 3.3 L Post-procedural complaints: none Patient Feedback: Patient satisfied with anesthetic care.
--- NOTE | 2023-07-22 08:47 | PCPTNOTE ---
Attempted PT evaluation, unable to arouse pt. Per pt's son, pt was combative last night and was given medication to calm him down. RN aware. Will follow.
[2023-07-22 09:10] LABS: Glucose Point of Care 296 mg/dl (65-105)
[2023-07-22] MEDS: INSULIN ASPART (*BKC) 100 UNITS/ML SUB-Q ×4 (09:46→21:09)
--- NOTE | 2023-07-22 11:14 | PM.IMPN ---
Progress Note: A&P Assessment and Plan (1) Gross hematuria: Code(s): R31.0 - Gross hematuria Status: Acute Assessment and Plan: CT scan shows prominent distention of the bladder with suggestion of a subtle intraluminal mass. Urology consulted. Patient started on CBI. Patient underwent cystoscopy with clot evacuation and transurethral resection of a bladder tumor. Pathology pending. Urine had cleared this morning CBI was stopped but has become bloody again. Hgb 10.9 -> 9.7 today. CBI to be resumed. Wean CBI as able (2) Bladder mass: Code(s): N32.89 - Other specified disorders of bladder Status: Acute Assessment and Plan: As above. This is the etiology of the hematuria Path is pending. (3) Type 2 diabetes mellitus: Code(s): E11.9 - Type 2 diabetes mellitus without complications Status: Acute Assessment and Plan: A1c 8.2%. The patient's blood glucose was reviewed on 07/22 Glucose remains elevated. Continue AccuCheks covering with sliding scale. Hypoglycemia protocol available as needed. Continue to follow (4) Dementia: Code(s): F03.90 - Unspecified dementia, unspecified severity, without behavioral disturbance, psychotic disturbance, mood disturbance, and anxiety Status: Acute Assessment and Plan: Stable. More combative yesterday. Continue seroquel 25 mg QHS Up later today to try to avoid altering day/night Plan DVT prophylaxis with SCDs GI prophylaxis not indicated Code status full code Subjective Date/time seen: 07/22/23 11:14 Interval history: 78-year-old male with dementia, hypertension, hyperlipidemia, and type 2 diabetes mellitus who presented to the emergency department via EMS from [place] for evaluation of hematuria is currently being treated with CBI. Assuming care. Chart reviewed. Patient was combative last evening treated with Seroquel, Haldol, Ativan and Benadryl. Patient somnolent this morning. Patient does have advanced dementia but son states patient can answer simple questions at times. Review of Systems Review of Systems: ROS unobtainable: Yes unobtainable due to mental status Exam Narrative: AF 96.7 120/44 73 20 99% ra Gen - NARD Chest - clear anteriorly to quiet respirations CV - RRR S1/S2 Abd - Soft, minimal guarding at times, hypoactive BS - CBI is attached but off currently; dark red blood in tubing without clots Ext - No pedal edema Neuro - somnolent but arouse Skin - Warm and dry Objective Data Vital Signs Vital Signs: Vital Signs - 24 hr 07/21/23 14:17 07/21/23 15:56 07/21/23 16:06 Temperature 97.2 F L 97.1 F L Pulse Rate 64 64 Respiratory Rate 16 12 Blood Pressure 141/46 H 103/50 L Pulse Oximetry 99 100 100 Oxygen Delivery Room Air Simple Face Mask Room Air Oxygen Flow Rate 8 07/21/23 16:10 07/21/23 16:25 07/21/23 16:53 Temperature 97.6 F Pulse Rate 68 70 63 Respiratory Rate 15 18 16 Blood Pressure 125/94 H 137/62 144/52 H Pulse Oximetry 99 100 100 Oxygen Delivery Room Air Room Air Oxygen Flow Rate 07/21/23 16:50 07/21/23 17:05 07/21/23 17:35 Temperature 97.6 F 96.9 F L 97.4 F L Pulse Rate 63 65 73 Respiratory Rate 16 16 16 Blood Pressure 144/52 H 118/65 154/55 H Pulse Oximetry 100 100 99 Oxygen Delivery Oxygen Flow Rate 07/21/23 22:00 07/21/23 20:00 07/22/23 06:00 Temperature 97.0 F L 96.7 F L Pulse Rate 90 73 Respiratory Rate 20 20 Blood Pressure 107/62 120/44 L Pulse Oximetry 99 99 Oxygen Delivery Room Air Oxygen Flow Rate Intake/Output Intake/Output: Intake & Output 07/19/23 07/20/23 07/21/23 07/22/23 23:59 23:59 23:59 23:59 Intake Total 1060 1220 660 Output Total 60403 2625 9900 6400 [facility] -[id number] [phone] Meds/Results Medications: Active Medications Generic Name Dose Route Start Last Admin Trade Name Freq PRN Reason Stop Dose Admin Acetaminophen 650 mg 12
--- NOTE | 2023-07-22 11:53 | PCOTNOTE ---
Attempted to see pt. for OT evaluation. Pt. unable to be aroused at this time. Nursing aware. Following.
[2023-07-22 12:16] LABS: Glucose Point of Care 253 mg/dl (65-105)
[2023-07-22 14:00] VITALS: BP 110/54; PULSE 75; RESP 20; TEMP 36.4; O2SAT 100
[2023-07-22] MEDS: BISACODYL 10 MG SUPPOSITORY RECTAL (14:59)
[2023-07-22] MEDS: FINASTERIDE 5 MG TABLET PO (15:47)
[2023-07-22] MEDS: BISACODYL 5 MG TABLET EC PO (15:47)
[2023-07-22] MEDS: LOSARTAN POTASSIUM 100 MG TABLET PO (15:47)
[2023-07-22] MEDS: ATORVASTATIN 10 MG TABLET PO (15:47)
[2023-07-22] MEDS: polyethylene glycoL 3350 17 GM POWD.PACK PO (17:36)
[2023-07-22 17:44] LABS: Glucose Point of Care 330 mg/dl (65-105)
[2023-07-22] MEDS: ACETAMINOPHEN 325 MG TABLET 650 MG PO (20:52)
[2023-07-22] MEDS: SERTRALINE HCL 25 MG TABLET PO (20:52)
[2023-07-22] MEDS: TAMSULOSIN HCL 0.4 MG CAPSULE PO (20:52)
[2023-07-22] MEDS: QUEtiapine FUMARATE 25 MG TABLET PO (20:52)
[2023-07-22] MEDS: INSULIN GLARGINE (*BKC) 100 UNITS/ML 8 UNITS SUB-Q (21:08)
[2023-07-22 21:17] LABS: Glucose Point of Care 318 mg/dl (65-105)
[2023-07-22 22:00] VITALS: BP 122/49; PULSE 85; RESP 21; TEMP 36.1; O2SAT 100
[2023-07-23 05:11] LABS: Basophils Percent Auto 0.3 % (0.2-1.2); Hematocrit 29.3 % (42.0-52.0); Hemoglobin 9.3 g/dL (14.0-18.0); Immature Granulocyte Absolute 0.07 K/mm3 (0.00-0.031); Immature Granulocyte Percent A 0.6 % (0-0.5); Lymphocytes Absolute Auto 0.52 K/mm3 (0.9-3.2); Lymphocytes Percent Auto 4.5 % (18.3-44.2); Mean Corpuscular HGB Conc 31.7 g/dl (32-36); Mean Corpuscular Hemoglobin 28.9 pg (26-34); Mean Platelet Volume 11.4 fl (7.4-10.4); Monocytes Absolute Auto 0.9 K/mm3 (0.1-0.6); Neutrophils Percent Auto 86.6 % (45.5-73.1); Platelet Count Result 190 k/mm3 (150-375); Red Blood Count 3.22 M/mm3 (4.6-6.20); Red Cell Distribution Width 14.8 % (11.5-14.5); White Blood Count 11.6 K/mm3 (4.5-10.0)
[2023-07-23 05:25] LABS: Alanine Aminotransferase 14 U/L (6-50); Albumin Level 3.5 g/dL (3.5-5.1); Alkaline Phosphatase 91 U/L (38-126); Anion Gap 6 mmol/L (8-16); Aspartate Amino Transferase 30 U/L (17-59); Bilirubin,Total 0.5 mg/dL (0.2-1.3); Blood Urea Nitrogen 33 mg/dL (9-20); Calcium 8.8 mg/dL (8.4-10.2); Carbon Dioxide 27 mmol/L (22-30); Chloride 105 mmol/L (98-107); Estimated CRCL calculation 52 ml/min; Estimated Glomerular Filt Rate > 60; Glucose 252 mg/dL (65-110); Sodium 138 mmol/L (137-145)
[2023-07-23 05:40] LABS: Anisocytosis 2+ (NORMAL); Platelet Estimate Adequate (Adequate); Poikilocytosis 1+ (NORMAL)
[2023-07-23 05:41] LABS: Ovalocytes 1+ (NORMAL); Schistocytes Rare (NORMAL)
[2023-07-23 06:00] VITALS: BP 108/74; PULSE 71; RESP 21; TEMP 36.6; O2SAT 100
--- NOTE | 2023-07-23 07:01 | WPDUROPN2 ---
Progress Note: A&P Assessment and Plan (1) Bladder mass: Code(s): N32.89 - Other specified disorders of bladder Status: Acute (2) Gross hematuria: Code(s): R31.0 - Gross hematuria Status: Acute Assessment and Plan: Will try stopping CBI again today Subjective Subjective Date/Time Seen: 07/23/23 07:01 Interval history: Yesterday urine got bloody again after stopping CBI. Now, urine very clear on slow CBI. Review of Systems Cardiovascular: Cardiovascular: Denies chest pain, Denies lightheadedness, Denies palpitations and Denies dyspnea Respiratory: Respiratory: Denies dyspnea Gastrointestinal: Gastrointestinal: Denies diarrhea, Denies nausea and Denies vomiting Genitourinary: Genitourinary: Denies hematuria and Denies dysuria Endocrine: Endocrine: Denies palpitations Exam Const: General: no acute distress Resp: Effort & Inspection: normal respiratory effort GI: Inspection: non-distended GI Palp: No abdominal tenderness and No Guarding due to palpation present (GI) Auscultation: normal bowel sounds Urinary Catheter: Urinary Catheter: patent and draining and urine clear Objective Data Vital Signs Vital Signs: Vital Signs - 24 hr 07/22/23 09:19 07/22/23 14:00 07/22/23 20:00 Temperature 97.6 F Pulse Rate 75 Respiratory Rate 20 Blood Pressure 110/54 L Pulse Oximetry 100 Oxygen Delivery Room Air Room Air 07/22/23 22:00 Temperature 97.0 F L Pulse Rate 85 Respiratory Rate 21 H Blood Pressure 122/49 L Pulse Oximetry 100 Oxygen Delivery Intake/Output Intake/Output: Intake & Output 07/20/23 07/21/23 07/22/23 07/23/23 23:59 23:59 23:59 23:59 Intake Total 1220 660 360 Output Total 2625 9900 7400 350 [facility] -[phone] Meds/Results Medications: Active Medications Generic Name Dose Route Start Last Admin Trade Name Freq PRN Reason Stop Dose Admin Acetaminophen 650 mg 07/18/23 22:54 07/22/23 20:52 Acetaminophen 325 Mg Tablet PO 650 mg Q6H PRN Administration Mild Pain (1-3) or Fever Atorvastatin Calcium 10 mg 07/20/23 09:50 07/22/23 15:47 Atorvastatin 10 Mg Tablet PO 10 mg DAILY JAIDEN Administration Bisacodyl 5 mg 07/20/23 15:00 07/22/23 15:47 Bisacodyl 5 Mg Tablet Ec PO 5 mg QAM JAIDEN Administration Bisacodyl 10 mg 07/21/23 17:17 07/22/23 14:59 Bisacodyl 10 Mg Suppository RECTAL 10 mg QAM PRN Administration Constipation Dextrose 12.5 gm 07/18/23 22:54 Dextrose 50% 25 Gm/50 Ml Syringe IV PUSH PRN PRN Hypoglycemia Protocol Docusate Sodium 100 mg 07/20/23 14:56 Docusate Sodium 100 Mg Capsule PO Q12H PRN Constipation Finasteride 5 mg 07/20/23 09:50 07/22/23 15:47 Finasteride 5 Mg Tablet PO 5 mg DAILY JAIDEN Administration Glucagon 1 mg 07/18/23 22:54 Glucagon For Inj 1 Mg Vial IM PRN PRN Hypoglycemia Protocol Glucose 15 gm 07/18/23 22:54 Glucose Oral Gel 15 Gm Of Glucse In 37.5 Gm Tube PO PRN PRN Hypoglycemia Protocol Dextrose 1,000 mls @ 100 mls/hr 07/18/23 22:54 Dextrose 5% 1,000 Ml IVPB PRN PRN Hypoglycemia Protocol Insulin Aspart 2 - 5 units 07/19/23 08:00 07/22/23 17:42 Insulin Aspart (*Bkc) 100 Units/Ml SUB-Q 4 units TIDWM JAIDEN Administration Protocol Insulin Aspart 1 - 2 units 07/19/23 21:00 07/22/23 21:09 Insulin Aspart (*Bkc) 100 Units/Ml SUB-Q 2 units HS JAIDEN Administration Protocol Insulin Glargine 8 units 07/22/23 21:00 07/22/23 21:08 Insulin Glargine (*Bkc) 100 Units/Ml SUB-Q 8 units HS JAIDEN Administration Losartan Potassium 100 mg 07/20/23 09:50 07/22/23 15:47 Losartan Potassium 100 Mg Tablet PO 100 mg DAILY JAIDEN Administration Melatonin 10 mg 07/20/23 21:00 07/20/23 19:45 Melatonin 5 Mg Tablet PO 10 mg HS PRN Administration Sleep Polyethylene Glycol 17 gm 07/21/23 18:05 1
[2023-07-23 08:25] LABS: Glucose Point of Care 245 mg/dl (65-105)
[2023-07-23] MEDS: INSULIN ASPART (*BKC) 100 UNITS/ML SUB-Q ×4 (09:23→21:21)
[2023-07-23] MEDS: LOSARTAN POTASSIUM 100 MG TABLET PO (09:24)
[2023-07-23] MEDS: ATORVASTATIN 10 MG TABLET PO (09:24)
[2023-07-23] MEDS: FINASTERIDE 5 MG TABLET PO (09:24)
--- NOTE | 2023-07-23 09:28 | PCPTNOTE ---
Attempted PT evaluation, pt's family refused at this time stating pt just got up to the chair. RN aware.
[2023-07-23 12:15] LABS: Glucose Point of Care 372 mg/dl (65-105)
--- NOTE | 2023-07-23 13:34 | PM.IMPN ---
Progress Note: A&P Assessment and Plan (1) Gross hematuria: Code(s): R31.0 - Gross hematuria Status: Acute Assessment and Plan: CT scan shows prominent distention of the bladder with suggestion of a subtle intraluminal mass. Urology consulted. Patient started on CBI. Patient underwent cystoscopy with clot evacuation and transurethral resection of a bladder tumor. 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 Urine red tinged but overall better Hgb 10.9 -> 9.3 today. Follow (2) Bladder mass: Code(s): N32.89 - Other specified disorders of bladder Status: Acute Assessment and Plan: As above. This is the etiology of the hematuria Path as above (3) Type 2 diabetes mellitus: Code(s): E11.9 - Type 2 diabetes mellitus without complications Status: Acute Assessment and Plan: A1c 8.2%. The patient's blood glucose was reviewed on 07/23 Glucose remains elevated. lantus added last night Continue AccuCheks covering with sliding scale. Hypoglycemia protocol available as needed. Continue to follow. Advance lantus (4) Dementia: Code(s): F03.90 - Unspecified dementia, unspecified severity, without behavioral disturbance, psychotic disturbance, mood disturbance, and anxiety Status: Acute Assessment and Plan: Stable. Was combative the other night but okay last night. Very sleepy today. Continue seroquel but decrease dose tonight Plan DVT prophylaxis with SCDs GI prophylaxis not indicated Code status full code Dispo - placement being arranged Subjective Date/time seen: 07/23/23 13:34 Interval history: 78-year-old male with dementia, hypertension, hyperlipidemia, and type 2 diabetes mellitus who presented to the emergency department via EMS from [place] for evaluation of hematuria is currently being treated with CBI. Patient somnolent again but only on Seroquel last night. Patient does have advanced dementia and unable to provide answer Exam Narrative: AF 97.8 108/74 71 21 100% ra Gen - NARD sitting up in chair Chest - clear to quiet respirations CV - RRR S1/S2 Abd - Soft, ND, +BS - CBI is attached but off currently; urine is red tinged Ext - No pedal edema Neuro - somnolent but arouse Skin - Warm and dry Objective Data Vital Signs Vital Signs: Vital Signs - 24 hr 07/22/23 14:00 07/22/23 20:00 07/22/23 22:00 Temperature 97.6 F 97.0 F L Pulse Rate 75 85 Respiratory Rate 20 21 H Blood Pressure 110/54 L 122/49 L Pulse Oximetry 100 100 Oxygen Delivery Room Air 07/23/23 06:00 Temperature 97.8 F Pulse Rate 71 Respiratory Rate 21 H Blood Pressure 108/74 Pulse Oximetry 100 Oxygen Delivery Intake/Output Intake/Output: Intake & Output 07/20/23 07/21/23 07/22/23 07/23/23 23:59 23:59 23:59 23:59 Intake Total 1220 660 360 240 Output Total 2625 9900 7400 1200 [facility] -[phone] Meds/Results Medications: Active Medications Generic Name Dose Route Start Last Admin Trade Name Freq PRN Reason Stop Dose Admin Acetaminophen 650 mg 07/18/23 22:54 07/22/23 20:52 Acetaminophen 325 Mg Tablet PO 650 mg Q6H PRN Administration Mild Pain (1-3) or Fever Atorvastatin Calcium 10 mg 07/20/23 09:50 07/23/23 09:24 Atorvastatin 10 Mg Tablet PO 10 mg DAILY JAIDEN Administration Bisacodyl 5 mg 07/20/23 15:00 07/23/23 09:24 Bisacodyl 5 Mg Tablet Ec PO Not Given QAM JAIDEN Bisacodyl 10 mg 07/21/23 17:17 07/22/23 14:59 Bisacodyl 10 Mg Suppository RECTAL 10 mg QAM PRN Administration Constipation Dextrose 12.5 gm 07/18/23 22:54 Dextrose 50% 25 Gm/50 Ml Syringe IV PUSH PRN PRN Hypoglycemia Protocol Docusate Sodium 100 mg 07/20/23 14:56 Docusate Sodium 100 Mg Capsule PO Q12H PRN Constipation Finasteride 5 mg 07/20/23 09:50
[2023-07-23 14:00] VITALS: BP 103/55; PULSE 88; RESP 16; TEMP 36; O2SAT 99
[2023-07-23 17:44] LABS: Glucose Point of Care 242 mg/dl (65-105)
[2023-07-23 19:51] VITALS: BP 115/49; PULSE 88; RESP 18; TEMP 36.4; O2SAT 100
[2023-07-23] MEDS: TAMSULOSIN HCL 0.4 MG CAPSULE PO (21:20)
[2023-07-23] MEDS: SERTRALINE HCL 25 MG TABLET PO (21:20)
[2023-07-23] MEDS: QUEtiapine FUMARATE 12.5 MG TABLET PO (21:20)
[2023-07-23] MEDS: INSULIN GLARGINE (*BKC) 100 UNITS/ML 12 UNITS SUB-Q (21:22)
[2023-07-23 21:33] LABS: Glucose Point of Care 265 mg/dl (65-105)
[2023-07-24 05:57] VITALS: BP 122/53; PULSE 89; RESP 18; TEMP 37.1; O2SAT 99
[2023-07-24 06:02] LABS: Basophils Absolute Auto 0.1 K/mm3 (0.0-0.1); Eosinophils Absolute Auto 0.2 K/mm3 (0-0.3); Eosinophils Percent Auto 1.6 % (0-4.4); Hematocrit 27.1 % (42.0-52.0); Hemoglobin 8.6 g/dL (14.0-18.0); Immature Granulocyte Absolute 0.06 K/mm3 (0.00-0.031); Immature Granulocyte Percent A 0.6 % (0-0.5); Lymphocytes Absolute Auto 0.87 K/mm3 (0.9-3.2); Lymphocytes Percent Auto 9.2 % (18.3-44.2); Mean Corpuscular HGB Conc 31.7 g/dl (32-36); Mean Corpuscular Volume 91.2 fl (80-100); Mean Platelet Volume 11.8 fl (7.4-10.4); Monocytes Absolute Auto 1.2 K/mm3 (0.1-0.6); Neutrophils Percent Auto 74.6 % (45.5-73.1); Platelet Count Result 189 k/mm3 (150-375); Red Blood Count 2.97 M/mm3 (4.6-6.20); Red Cell Distribution Width 14.7 % (11.5-14.5); White Blood Count 9.4 K/mm3 (4.5-10.0)
[2023-07-24 06:08] LABS: Alanine Aminotransferase 14 U/L (6-50); Alkaline Phosphatase 85 U/L (38-126); Anion Gap 3 mmol/L (8-16); Aspartate Amino Transferase 22 U/L (17-59); Bilirubin,Total 0.6 mg/dL (0.2-1.3); Blood Urea Nitrogen 31 mg/dL (9-20); Calcium 8.6 mg/dL (8.4-10.2); Carbon Dioxide 26 mmol/L (22-30); Chloride 106 mmol/L (98-107); Estimated CRCL calculation 80 ml/min; Estimated Glomerular Filt Rate > 60; Glucose 159 mg/dL (65-110); Potassium 3.7 mmol/L (3.4-5.0); Sodium 135 mmol/L (137-145)
--- NOTE | 2023-07-24 07:25 | WPDUROPN2 ---
Progress Note: A&P Assessment and Plan (1) Gross hematuria: Code(s): R31.0 - Gross hematuria Status: Acute (2) Bladder mass: Code(s): N32.89 - Other specified disorders of bladder Status: Acute Assessment and Plan: Urine remains clear. Will plan a voiding trial today Discharge any time if he voids okay. Should follow-up with Dr. Deleon within 2-3 weeks Subjective Subjective Date/Time Seen: 07/24/23 07:25 Interval history: Urine remains clear. Pt. comfortable. Review of Systems Cardiovascular: Cardiovascular: Denies chest pain, Denies lightheadedness, Denies palpitations and Denies dyspnea Respiratory: Respiratory: Denies dyspnea Gastrointestinal: Gastrointestinal: Denies diarrhea, Denies nausea and Denies vomiting Genitourinary: Genitourinary: Denies hematuria and Denies dysuria Endocrine: Endocrine: Denies palpitations Exam Const: General: no acute distress Resp: Effort & Inspection: normal respiratory effort GI: Inspection: non-distended GI Palp: No abdominal tenderness and No Guarding due to palpation present (GI) Auscultation: normal bowel sounds Objective Data Vital Signs Vital Signs: Vital Signs - 24 hr 07/23/23 14:00 07/23/23 19:51 07/24/23 05:57 Temperature 96.8 F L 97.5 F L 98.7 F Pulse Rate 88 88 89 Respiratory Rate 16 18 18 Blood Pressure 103/55 L 115/49 L 122/53 L Pulse Oximetry 99 100 99 Intake/Output Intake/Output: Intake & Output 07/21/23 07/22/23 07/23/23 07/24/23 23:59 23:59 23:59 23:59 Intake Total 660 360 680 Output Total 9900 7400 3700 750 [facility] -[phone] -3020 -750 Meds/Results Medications: Active Medications Generic Name Dose Route Start Last Admin Trade Name Freq PRN Reason Stop Dose Admin Acetaminophen 650 mg 07/18/23 22:54 07/22/23 20:52 Acetaminophen 325 Mg Tablet PO 650 mg Q6H PRN Administration Mild Pain (1-3) or Fever Atorvastatin Calcium 10 mg 07/20/23 09:50 07/23/23 09:24 Atorvastatin 10 Mg Tablet PO 10 mg DAILY JAIDEN Administration Bisacodyl 5 mg 07/20/23 15:00 07/23/23 09:24 Bisacodyl 5 Mg Tablet Ec PO Not Given QAM JAIDEN Bisacodyl 10 mg 07/21/23 17:17 07/22/23 14:59 Bisacodyl 10 Mg Suppository RECTAL 10 mg QAM PRN Administration Constipation Dextrose 12.5 gm 07/18/23 22:54 Dextrose 50% 25 Gm/50 Ml Syringe IV PUSH PRN PRN Hypoglycemia Protocol Docusate Sodium 100 mg 07/20/23 14:56 Docusate Sodium 100 Mg Capsule PO Q12H PRN Constipation Finasteride 5 mg 07/20/23 09:50 07/23/23 09:24 Finasteride 5 Mg Tablet PO 5 mg DAILY JAIDEN Administration Glucagon 1 mg 07/18/23 22:54 Glucagon For Inj 1 Mg Vial IM PRN PRN Hypoglycemia Protocol Glucose 15 gm 07/18/23 22:54 Glucose Oral Gel 15 Gm Of Glucse In 37.5 Gm Tube PO PRN PRN Hypoglycemia Protocol Dextrose 1,000 mls @ 100 mls/hr 07/18/23 22:54 Dextrose 5% 1,000 Ml IVPB PRN PRN Hypoglycemia Protocol Insulin Aspart 2 - 5 units 07/19/23 08:00 07/23/23 17:57 Insulin Aspart (*Bkc) 100 Units/Ml SUB-Q 2 units TIDWM JAIDEN Administration Protocol Insulin Aspart 1 - 2 units 07/19/23 21:00 07/23/23 21:21 Insulin Aspart (*Bkc) 100 Units/Ml SUB-Q 1 units HS JAIDEN Administration Protocol Insulin Glargine 12 units 07/23/23 21:00 07/23/23 21:22 Insulin Glargine (*Bkc) 100 Units/Ml SUB-Q 12 units HS JAIDEN Administration Losartan Potassium 100 mg 07/20/23 09:50 07/23/23 09:24 Losartan Potassium 100 Mg Tablet PO 100 mg DAILY JAIDEN Administration Melatonin 10 mg 07/20/23 21:00 07/20/23 19:45 Melatonin 5 Mg Tablet PO 10 mg HS PRN Administration Sleep Polyethylene Glycol 17 gm 07/21/23 18:05 07/23/23 17:56 Polyethylene Glycol 3350 17 Gm Powd.Pack PO Not Given BID JAIDEN Quetiapine Fumarate 12.5 mg 07/23/23 21:00 07/23/23 21:20 Que
[2023-07-24] MEDS: FINASTERIDE 5 MG TABLET PO (08:08)
[2023-07-24] MEDS: ATORVASTATIN 10 MG TABLET PO (08:08)
[2023-07-24] MEDS: LOSARTAN POTASSIUM 100 MG TABLET PO (08:08)
[2023-07-24 08:40] LABS: Glucose Point of Care 170 mg/dl (65-105)
[2023-07-24 11:59] LABS: Glucose Point of Care 306 mg/dl (65-105)
[2023-07-24] MEDS: INSULIN ASPART (*BKC) 100 UNITS/ML SUB-Q (12:34)
--- NOTE | 2023-07-24 13:00 | PM.DS ---
DS: Admitting Diagnosis Discharge Date 07/24/23 Admitting Diagnosis Hematuria DS: Discharge Diagnosis Discharge Diagnosis (1) Gross hematuria: Code(s): R31.0 - Gross hematuria Status: Acute (2) Bladder mass: Code(s): N32.89 - Other specified disorders of bladder Status: Acute (3) Type 2 diabetes mellitus: Code(s): E11.9 - Type 2 diabetes mellitus without complications Status: Acute (4) Dementia: Code(s): F03.90 - Unspecified dementia, unspecified severity, without behavioral disturbance, psychotic disturbance, mood disturbance, and anxiety Status: Acute DS: Summary Hospital Course Reason for hospitalization: 78-year-old male with dementia, hypertension, hyperlipidemia, and type 2 diabetes mellitus who presented to the emergency department via EMS from [place] for evaluation of hematuria. Please see H&P for details. Hospital Course: CT scan shows prominent distention of the bladder with suggestion of a subtle intraluminal mass.? Urology consulted.? Patient started on CBI. Patient underwent cystoscopy with clot evacuation and transurethral resection of a bladder tumor on 07/21.? 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 Urine cleared and CBI was stopped. Hgb 10.9 on admission and dropped to 8.6. A1c 8.2%.? The patient's blood glucose was monitored closely with AccuCheks covering with sliding scale.? Hypoglycemia protocol was available as needed.? Lantus added. Patient with advanced dementia and was combative at times at night. Seroquel was added with benefit. Urine cleared and having Celestin trial currently. He did well and was able to be discharged on 07/24/23. Status at Discharge Cognitive/behavioral status at discharge: Stable Time Spent with Patient Time attestation: Total time spent providing and/or coordinating discharge services: 35 minutes Time spent: Greater than 30 minutes Exam Narrative: AF 98.7 122/53 89 18 99% ra Gen - NARD sitting up in chair Chest - CTA bilaterally, nml RR CV - RRR S1/S2 Abd - Soft, fullness in the lower abdomen Ext - No pedal edema Neuro - asleep but arouses Skin - Warm and dry DS: Data Data Completed and Pending Completed studies during hospitalization: Pending at discharge 07/21/23 15:48 Surgical [PTH] Routine Labs on day of discharge: Labs from last 24 hours 07/24/23 07/24/23 07/24/23 11:53 08:33 05:30 WBC 9.4 RBC 2.97 L Hgb 8.6 L Hct 27.1 L MCV 91.2 MCH 29.0 MCHC 31.7 L RDW 14.7 H Plt Count 189 MPV 11.8 H Immature Gran % (Auto) 0.6 H Neut % (Auto) 74.6 H Lymph % (Auto) 9.2 L Cochran % (Auto) 13.0 H Eos % (Auto) 1.6 Baso % (Auto) 1.0 Lymph # (Auto) 0.87 L Cochran # (Auto) 1.2 H Eos # (Auto) 0.2 Baso # (Auto) 0.1 Abs Immat Gran (auto) 0.06 H Absolute Neuts (auto) 7.0 H Absolute Nucleated RBC 0.0 Nucleated RBC % 0.0 Sodium 135 L Potassium 3.7 Chloride 106 Carbon Dioxide 26 Anion Gap 3 L BUN 31 H Creatinine 0.50 L Estim Creat Clear Calc 80 Estimated GFR > 60 Glucose 159 H POC Capillary Glucose 306 H 170 H Calcium 8.6 Total Bilirubin 0.6 AST 22 ALT 14 Alkaline Phosphatase 85 Total Protein 6.0 L Albumin 3.0 L 07/23/23 07/23/23 21:19 17:30 WBC RBC Hgb Hct MCV MCH MCHC RDW Plt Count MPV Immature Gran % (Auto) Neut % (Auto) Lymph % (Auto) Cochran % (Auto) Eos % (Auto) Baso % (Auto) Lymph # (Auto) Cochran # (Auto) Eos # (Auto) Baso # (Auto) Abs Immat Gran (auto) Absolute Neuts (auto) Absolute Nucleated RBC Nucleated RBC % Sodium Potassium Chloride Carbon Dioxide Anion Gap BUN Creatinine Estim Creat Clear Calc Estimated GFR Glucose POC Capillary Glucose 265 H 242 H Calcium Total Bilirubin AST ALT Alkaline Phosphata
--- NOTE | 2023-07-24 13:23 | PC.NURSE ---
Package Delivery Driver bladder scanned pt and found to have approx 225 ml in bladder . Package Delivery Driver spoke to Dr Garza by phoneand it is ok to discharge pt at this time.
[2023-07-24 14:00] VITALS: BP 117/47; PULSE 69; RESP 16; TEMP 36.4; O2SAT 98
[2023-07-24 15:09] LABS: SARS-CoV-2 RNA PCR Negative (Negative)
== END 2023-07-24 16:30 | DRG 670 ==
LOC: ANHED 18:53 → ANH3MED 19:54
PROVIDERS: Physician Assistant; Urology; Admitting Provider Student in an Organized Health Care Education/Training Program; Emergency Provider Emergency Medicine; PCP Internal Medicine; Visit Provider Internal Medicine
PROC: 0TCB8ZZ Extirpation of Matter from Bladder, Via Natural or Artificial Opening Endoscopic (ICD-10-PCS; CPT 52001; principal; 2023-07-21 14:00)
DX: C67.3 Malignant neoplasm of anterior wall of bladder (principal); N40.1 Benign prostatic hyperplasia with lower urinary tract symptoms; R31.0 Gross hematuria; E78.5 Hyperlipidemia, unspecified; E11.9 Type 2 diabetes mellitus without complications; I10 Essential (primary) hypertension; F03.90 Unspecified dementia, unspecified severity, without behavioral disturbance, psychotic disturbance, mood disturbance, and anxiety; Z66 Do not resuscitate; Z20.822 Contact with and (suspected) exposure to COVID-19; Z95.0 Presence of cardiac pacemaker
CPT/HCPCS: 36415; 51702; 74018; 74176; 76857; 80048; 80053; 81001; 82948; 83036; 83605; 83735; 85025; 85027; 85610; 85730; 86850; 86900; 86901; 87635; 87637; 88305; 96360; 96372; 97162; 97166; 99284; 99285; A9270; C1757; G0378; J1100; J1200; J1630; J1815; J2060; J2405; J2704; J7030; J7120

== ENCOUNTER 2023-07-25 11:03 | Inpatient (IN) | payer MEDICARE, SELFPAY ==
[2023-07-25] VITALS (32 sets, daily range): BP systolic 101–142; BP diastolic 48–87; PULSE 59–91; RESP 16–18; TEMP 36.3–36.7; O2SAT 98–100; BMI 24.9
--- NOTE | ~2023-07-25 | XR_ITS ---
XR chest 2V DATE: 07/25/2023 11:53 INDICATION: Weakness TECHNIQUE: AP and lateral views COMPARISON: 03/27/2023 PA and lateral chest FINDINGS: Left-sided dual-lead pacemaker device with leads in expected position. Borderline heart siz e. Minimal atelectasis is suggested in the left lung base; otherwise no pulmonary infiltrate or consolid ation, pleural effusion or pulmonary vascular congestion or pneumothorax is detected. Diffuse osteopenia. Dextroscoliosis and degenerative change of the thoracic spine. IMPRESSION: Minimal atelectasis at left lung base Reviewed, dictated and finalized at location A. VITIES MANAGER
--- NOTE | 2023-07-25 11:37 | ECG_ITS ---
Measurements Intervals [place] [facility] Rate: 67 P: 39 SD: 191 QRS: -27 QRSD: 178 T: 72 QT: 477 QTc: 505 Interpretive Statements SINUS RHYTHM WITH eLECTRONIC VENTRICULAR PACEMAKER ABNORMAL RHYTHM ECG COMPARED TO ECG 01/02/2023 19:39:45 NO SIGNIFICANT CHANGES Electronically Signed On 07-25-2023 19:52:17 WAIST PRESSER by Rocío Trevino M.D.
[2023-07-25 11:49] LABS: Basophils Absolute Auto 0.1 K/mm3 (0.0-0.1); Eosinophils Absolute Auto 0.2 K/mm3 (0-0.3); Eosinophils Percent Auto 2.3 % (0-4.4); Hematocrit 27.4 % (42.0-52.0); Hemoglobin 8.7 g/dL (14.0-18.0); Immature Granulocyte Absolute 0.03 K/mm3 (0.00-0.031); Immature Granulocyte Percent A 0.4 % (0-0.5); Lymphocytes Absolute Auto 0.82 K/mm3 (0.9-3.2); Mean Corpuscular HGB Conc 31.8 g/dl (32-36); Mean Corpuscular Hemoglobin 28.7 pg (26-34); Mean Corpuscular Volume 90.4 fl (80-100); Mean Platelet Volume 11.2 fl (7.4-10.4); Monocytes Absolute Auto 0.9 K/mm3 (0.1-0.6); Monocytes Percent Auto 11.4 % (2.6-8.5); Neutrophils Absolute Auto 6.2 K/mm3 (1.3-6.7); Neutrophils Percent Auto 74.9 % (45.5-73.1); Platelet Count Result 200 k/mm3 (150-375); Red Blood Count 3.03 M/mm3 (4.6-6.20); Red Cell Distribution Width 14.7 % (11.5-14.5); White Blood Count 8.2 K/mm3 (4.5-10.0)
--- NOTE | 2023-07-25 11:55 | PC.NURSE ---
theodore from care coordination at bedside to discuss possible hospice vs home health vs another rehab facility transfer. pts and son at bedside.
[2023-07-25 12:03] LABS: Hyaline Casts Urine Present /lpf; Need Manual Microscopic Reviewed; RBC Urine >100 /hpf (0-2); Squamous Epithelial Cell Urine Occasional /hpf (Few); WBC Clumps Urine Present /HPF; WBC Urine >100 /hpf
[2023-07-25 12:04] LABS: Appearance Urine Turbid (Clear); Bilirubin Urine 1+ (Negative); Blood Urine 2+ (Negative); Glucose Urine UA 1+ mg/dL (Negative); Ketones Urine Negative (Negative); Leukocyte Esterase Ur 3+ LEU/UL (Negative); Nitrate Urine Positive (Negative); Protein Urine 2+ mg/dL (Negative); pH Urine 5.5 (5.0-9.0)
[2023-07-25 12:05] LABS: Color Urine Dark Yellow (Yellow)
[2023-07-25 12:06] LABS: Add Urine Microscopic? YES; Bacteria Urine 1+ /hpf
--- NOTE | 2023-07-25 12:21 | ED.GENADULT ---
HPI - General Adult General Chief complaint: Weakness Stated complaint: fall Time Seen by Provider: 07/25/23 12:16 Source: family History of Present Illness HPI narrative: Patient is 78 years old male got discharged from our facility yesterday, had 2 falls at the [facility], had trouble urinating, Celestin catheter was placed for urinary retention, patient came by ambulance, his is telling me that she does not know what to do next. Thinking about comfort measures/hospice. branch sales manager was in the room talking to the when I went to see the patient. Patient was discharged tomorrow our facility yesterday with diagnosis of gross hematuria, bladder mass, type 2 diabetes, dementia. Related Data Home Medications Medication Instructions Recorded Confirmed atorvastatin 10 mg tablet 10 mg PO DAILY 12/01/19 07/25/23 losartan 100 mg tablet 100 mg PO DAILY 12/01/19 07/25/23 finasteride 5 mg tablet 5 mg PO DAILY 07/19/23 07/25/23 metformin 500 mg tablet 1,000 mg PO BID 07/19/23 07/25/23 sertraline 25 mg tablet 25 mg PO DAILY 07/19/23 07/25/23 tamsulosin 0.4 mg capsule 0.4 mg PO HS 07/19/23 07/25/23 Allergies Allergy/AdvReac Type Severity Reaction Status Date / Time No Known Allergies Allergy Unknown Verified 07/17/23 19:47 Review of Systems Review of Systems: ROS unobtainable: Yes unobtainable due to medical condition and unobtainable due to mental status PMFSH Past Medical History Medical History Bradycardia Dementia Essential hypertension Type 2 diabetes mellitus Surgical History Surgical History History of permanent cardiac pacemaker placement History of repair of rotator cuff Family History Family History Mother Diabetes mellitus Sibling Cerebrovascular accident Sibling Cancer Social History Social History Social History: Surrogate medical decision makers: Leann Torres (spouse), Alexandre Torres (son), and Claudia Tello (daughter). Code status: Do not resuscitate. Smoking status: Never smoker Alcohol intake: never Substance use: never Substance use type: does not use Additional living arrangements comments: [facility]. Additional occupation/education comments: Retired from [employer]. Spiritual care concerns: No Exam Narrative: General appearance: Well-developed, well-nourished Skin: Normal color, scattered bruises Head: Normocephalic, nontraumatic Eyes: Clear conjunctiva ENT: Oropharynx normal, ears normal, nose normal Neck: Supple, nontender Chest and respiratory: Airway patent, no respiratory distress, no accessory muscle use Heart: Regular rate/rhythm Abdomen: Soft, nontender, no organomegaly, quiet bowel sounds, Celestin catheter in place, containing red dark bloody urine Vascular: Normal peripheral pulses, normal capillary refill. Musculoskeletal: Normal range of motion, nontender back Neurologic: Alert, disoriented time 4 Course Consultations Consultation #1: medical referral coordinator came to the emergency room to discuss the comfort measures versus hospice for the patient. Date: 07/25/23 Vital Signs Vital signs: Vital Signs Temperature 36.3 C L 07/25/23 11:00 Pulse Rate 91 07/25/23 11:00 Respiratory Rate 16 07/25/23 11:00 Blood Pressure 110/48 L 07/25/23 11:00 Pulse Oximetry 98 07/25/23 11:00 Oxygen Delivery Room Air 07/25/23 11:00 Temperature 36.7 C 07/25/23 19:43 Pulse Rate 80 07/25/23 19:43 Respiratory Rate 18 07/25/23 19:43 Blood Pressu
[2023-07-25 12:34] LABS: Alanine Aminotransferase 17 U/L (6-50); Albumin Level 3.2 g/dL (3.5-5.1); Alkaline Phosphatase 98 U/L (38-126); Anion Gap 6 mmol/L (8-16); Aspartate Amino Transferase 22 U/L (17-59); Bilirubin,Total 0.6 mg/dL (0.2-1.3); Blood Urea Nitrogen 30 mg/dL (9-20); Calcium 8.7 mg/dL (8.4-10.2); Carbon Dioxide 26 mmol/L (22-30); Chloride 104 mmol/L (98-107); Estimated Glomerular Filt Rate > 60; Glucose 215 mg/dL (65-110); Potassium 3.7 mmol/L (3.4-5.0); Sodium 136 mmol/L (137-145)
[2023-07-25] MEDS: SODIUM CHLORIDE 0.9% IV 1,000 ML 999 ML IV CONT (12:52)
[2023-07-25] MEDS: SODIUM CHLORIDE 0.9% IV 1,000 ML 125 ML IV CONT (15:05)
[2023-07-25 15:08] LABS: INR 1.1; Prothrombin Time 14.5 Seconds (11.1-14.7)
--- NOTE | 2023-07-25 15:08 | PCCCNOTE ---
After speaking with and family, they would like to explore hospice as a possible option. choose [facility]. A referral was made, info faxed and [facility] indicated that they would reach out to the to schedule a time to discuss hospice care
[2023-07-25 15:09] LABS: Partial Thromboplastin Time 39.1 SECONDS (22.3-36.8)
[2023-07-25 15:10] LABS: Lactic Acid Reflex 0.9 mmol/L (0.7-2.0)
--- NOTE | 2023-07-25 16:26 | PC.NURSE ---
This patient, Lucien Torres, was admitted to Medical Room 347-. Patient/family oriented to hospital policies and general routines including ID bracelet, bed and alarms, visiting hours, pain management, procedures, bathroom and other care routines, personal items, smoking policy, room service/diet, and visiting hours. Information on how to activate the Rapid Response Team has been discussed. Patient/Family are encouraged to report perceived risks to care and to ask questions if they do not understand what they are told or what they should do.
[2023-07-25 19:52] LABS: Glucose Point of Care 340 mg/dl (65-105)
--- NOTE | 2023-07-25 20:12 | PM.IMHP ---
H&P: HPI History of Present Illness Date/Time: 07/25/23 20:12 Chief Complaint: URINARY RETENTION Narrative: THIS IS A 78-YEAR-OLD MALE WITH PAST MEDICAL HISTORY SIGNIFICANT FOR DEMENTIA, TYPE 2 DIABETES MELLITUS, PATIENT JUST RECENTLY DISCHARGED TO [facility] TO THE MEMORY CARE UNIT. HOWEVER RETURNS TODAY DUE TO EPISODE OF URINARY RETENTION. PATIENT HAD SAWYER CATHETER PLACED IN THE EMERGENCY ROOM. I HAVE OBTAINED MOST OF THE HISTORY FROM SON WHO IS AT BEDSIDE PATIENT IS UNABLE TO GIVE ANY HISTORY. CURRENTLY SON TELLS ME THAT HOSPICE IS IN PROGRESS. XR chest 2V DATE: 07/25/2023 11:53 INDICATION: Weakness? TECHNIQUE: AP and lateral views? COMPARISON: 03/27/2023 PA and lateral chest? FINDINGS: Left-sided dual-lead pacemaker device with leads in expected position. Borderline heart size. Minimal atelectasis is suggested in the left lung base; otherwise no pulmonary infiltrate or consolidation, pleural effusion or pulmonary vascular congestion or pneumothorax is detected. Diffuse osteopenia. Dextroscoliosis and degenerative change of the thoracic spine. IMPRESSION: Minimal atelectasis at left lung base? Review of Systems Review of Systems: ROS unobtainable: Yes unobtainable due to medical condition (DEMENTIA) [facility] Past Medical History Medical History Bradycardia Dementia Essential hypertension Type 2 diabetes mellitus Surgical History Surgical History History of permanent cardiac pacemaker placement History of repair of rotator cuff Family History Family History Mother Diabetes mellitus Sibling Cerebrovascular accident Sibling Cancer Social History Social History Social History: Surrogate medical decision makers: Leann Torres (spouse), Alexandre Torres (son), and Claudia Tello (daughter). Code status: Do not resuscitate. Smoking status: Never smoker Alcohol intake: never Substance use: never Substance use type: does not use Additional living arrangements comments: [facility]. Additional occupation/education comments: Retired from [employer]. Spiritual care concerns: No Meds Home Medications and Allergies Home Medications Medication Instructions Recorded Confirmed Type atorvastatin 10 mg tablet 10 mg PO DAILY 12/01/19 07/25/23 History losartan 100 mg tablet 100 mg PO DAILY 12/01/19 07/25/23 History finasteride 5 mg tablet 5 mg PO DAILY 07/19/23 07/25/23 History metformin 500 mg tablet 1,000 mg PO BID 07/19/23 07/25/23 History sertraline 25 mg tablet 25 mg PO DAILY 07/19/23 07/25/23 History tamsulosin 0.4 mg capsule 0.4 mg PO HS 07/19/23 07/25/23 History polyethylene glycol 3350 17 gram 17 g PO BID #30 ea 07/24/23 07/25/23 Rx oral powder packet (Miralax) Allergies Allergy/AdvReac Type Severity Reaction Status Date / Time No Known Allergies Allergy Unknown Verified 07/17/23 19:47 Vital Signs Vital Signs - 24 hr 07/25/23 11:00 07/25/23 11:11 07/25/23 11:12 Temperature 97.4 F L Pulse Rate 91 Respiratory Rate 16 Blood Pressure 110/48 L 140/49 L Pulse Oximetry 98 98 99 Oxygen Delivery Room Air 07/25/23 11:15 07/25/23 11:31 07/25/23 11:33 Temperature Pulse Rate 72 Respiratory Rate Blood Pressure 110/48 L Pulse Oximetry 99 100 Oxygen Delivery 07/25/23 11:56 07/25/23 11:57 07/25/23 12:00 Temperature Pulse Rate 66 65 83 Respiratory Rate Blood Pressure 130/54 L Pulse Oximetry 99 99 100 Oxygen Delivery 07/25/23 12:01 07/25/23 12:15 07/25/23 12:30 Temperature Pulse Rate 72 77 70 Respiratory Rate Blood Pressure 140/57 L Pulse Oximetry 100 Oxygen Delivery 07/25/23 12:31 07/25/23 12:45 07/25/23 13:00 Temperature Pulse Rate 63 64 60 Respiratory Rate Blood Pressur
--- NOTE | 2023-07-25 20:45 | PC.NURSE ---
Addendum entered by Gabby Marinelli RN 07/25/23 21:23: Physician contacted. Will place orders addressing patients blood sugars. Original Note: Call attempt #2 with no response regarding patient elevated BS. Will reach out in 15 min to physician.
--- NOTE | 2023-07-25 23:33 | PC.NURSE ---
CALLED PHARMACY TO REQUEST REGULAR INSULIN.
[2023-07-25] MEDS: INSULIN HUMAN REGULAR (*BKC) 100 UNITS/ML 6 UNITS IV PUSH (23:42)
[2023-07-26] MEDS: SODIUM CHLORIDE 0.9% IV 1,000 ML 125 ML IV CONT ×2 (01:35→08:43)
[2023-07-26 05:55] VITALS: BP 134/52; PULSE 72; RESP 18; TEMP 35.9; O2SAT 99
[2023-07-26] MEDS: polyethylene glycoL 3350 17 GM POWD.PACK PO (08:43)
[2023-07-26 08:47] LABS: Glucose Point of Care 111 mg/dl (65-105)
[2023-07-26] MEDS: ATORVASTATIN 10 MG TABLET PO (08:47)
[2023-07-26] MEDS: FINASTERIDE 5 MG TABLET PO (08:47)
[2023-07-26] MEDS: SERTRALINE HCL 25 MG TABLET PO (08:47)
[2023-07-26] MEDS: LOSARTAN POTASSIUM 100 MG TABLET PO (08:47)
--- NOTE | 2023-07-26 10:19 | PM.IMPN ---
Progress Note: A&P Assessment and Plan (1) Fall: Qualifiers: Encounter type: initial encounter Qualified Code(s): W19.XXXA - Unspecified fall, initial encounter Code(s): W19.XXXA - Unspecified fall, initial encounter Status: Acute (2) Urinary retention: Code(s): R33.9 - Retention of urine, unspecified Status: Acute (3) Urinary tract infection: Code(s): N39.0 - Urinary tract infection, site not specified Status: Acute (4) Anemia: Code(s): D64.9 - Anemia, unspecified Status: Acute (5) Weakness: Code(s): R53.1 - Weakness Status: Acute (6) Type 2 diabetes mellitus: Code(s): E11.9 - Type 2 diabetes mellitus without complications Status: Acute (7) Dementia: Code(s): F03.90 - Unspecified dementia, unspecified severity, without behavioral disturbance, psychotic disturbance, mood disturbance, and anxiety Status: Acute (8) Bladder cancer: Code(s): C67.9 - Malignant neoplasm of bladder, unspecified Status: Acute (9) Essential hypertension: Code(s): I10 - Essential (primary) hypertension Status: Acute (10) BPH (benign prostatic hyperplasia): Code(s): N40.0 - Benign prostatic hyperplasia without lower urinary tract symptoms Status: Acute Plan Patient was brought to the emergency room because of a fall. Regarding the triage notes, patient was found on his hands and knees next to his bed at the facility. He had already been noted to have urine retention and a Celestin catheter was placed at the facility. Urinalysis noted and may have underlying UTI. He has been started on Rocephin. Follow-up on urine culture. Hemoglobin low but stable. Patient has chronic anemia with underlying acute process of hematuria recently. Urine is clear now. The hematuria was related to his bladder cancer. Continue antihypertensive medications and adjust as needed. Continue medications for his BPH. Metformin on hold. He has been started on mealtime insulin. Recent A1c was 8.2. Will stop IV fluids. Start PT and OT. Spoke at length with the about end of life issues. Explained that the patient is not terminal at this time and that decision about hospice is not necessary but is a family and patient decision. Explain his dementia will continue to worsen and decision about long-term long-term versus home care will be a family decision. Care coordination to evaluate the patient. Check brain CT since he did have an unwitnessed fall. DVT prophylaxis -SCDs Code status -DNR Disposition -patient can be discharged at any time. Subjective Date/time seen: 07/26/23 10:19 Interval history: 78yo male with dementia, HTN, HLD and DM who presented for evaluation of fall. Patient was discharged on 07/24. Patient was having trouble voiding at the facility and Celestin placed. Dark urine noted with some bloody threads. Patient awake and alert but unable to provide hx. at bedside states she was pressured into making a decision about hospice for her and requested admission to give her more time to think about it. Review of Systems Review of Systems: ROS unobtainable: Yes unobtainable due to mental status Exam Narrative: AF 96.6 134/52 72 18 99% ra Gen - NARD Chest - CTA bilaterally, nml RR CV - RRR S1/S2 Abd - Soft, NT/ND, Positive BS - Celestin secured draining clear yellow urine Ext - No pedal edema Neuro - Alert but confused Psych - Nml mood and affect Skin - Warm and dry Objective Data Vital Signs Vital Signs: Vital Signs - 24 hr 07/25/23 11:00 07/25/23 11:11 07/25/23 11:12 Temperature 97.4 F L Pulse Rate 91 Respiratory Rate 16 Blood Pressure 110/48 L 140/49 L Pulse Oximetry 98 98 99 Oxygen Delivery Room Air 07/25/23 11:15 07/25/23 11:31 07/25/23 11:33 Temperature Pulse Rate 72 Respiratory Rate Blood Pressure 110/48 L Pulse Oximetry 99 100 Oxygen Delive
[2023-07-26 12:15] LABS: Glucose Point of Care 191 mg/dl (65-105)
--- NOTE | 2023-07-26 12:36 | PC.NURSE ---
RN spoke with spouse at bedside and she stated that she does not want CT scans or XRAYS done. She would like patient to go back to [facility]. RN spoke with hospitalist Shantell and updated him on spouse's statements.
[2023-07-26 13:40] VITALS: BP 122/48; PULSE 77; RESP 20; TEMP 36.5; O2SAT 100
--- NOTE | 2023-07-26 13:57 | PM.DS ---
DS: Admitting Diagnosis Discharge Date 07/26/23 Admitting Diagnosis Fall DS: Discharge Diagnosis Discharge Diagnosis (1) Fall: Qualifiers: Encounter type: initial encounter Qualified Code(s): W19.XXXA - Unspecified fall, initial encounter Code(s): W19.XXXA - Unspecified fall, initial encounter Status: Acute (2) Urinary retention: Code(s): R33.9 - Retention of urine, unspecified Status: Acute (3) Urinary tract infection: Code(s): N39.0 - Urinary tract infection, site not specified Status: Acute (4) Anemia: Code(s): D64.9 - Anemia, unspecified Status: Acute (5) Weakness: Code(s): R53.1 - Weakness Status: Acute (6) Type 2 diabetes mellitus: Code(s): E11.9 - Type 2 diabetes mellitus without complications Status: Acute (7) Dementia: Code(s): F03.90 - Unspecified dementia, unspecified severity, without behavioral disturbance, psychotic disturbance, mood disturbance, and anxiety Status: Acute (8) Bladder cancer: Code(s): C67.9 - Malignant neoplasm of bladder, unspecified Status: Acute (9) Essential hypertension: Code(s): I10 - Essential (primary) hypertension Status: Acute (10) BPH (benign prostatic hyperplasia): Code(s): N40.0 - Benign prostatic hyperplasia without lower urinary tract symptoms Status: Acute DS: Summary Hospital Course Reason for hospitalization: 78yo male with dementia, HTN, HLD and DM who was recently discharged now presents for evaluation of fall. Please see H&P for details. Hospital Course: Patient was brought to the emergency room because of a fall. Regarding the triage notes, patient was found on his hands and knees next to his bed at the facility. He had already been noted to have urine retention and a Celestin catheter was placed at the facility. Urinalysis noted here and may have underlying UTI. He was started on Rocephin. Hemoglobin low but stable. Patient has chronic anemia with underlying acute process of hematuria recently. Urine is clear now. The hematuria was related to his bladder cancer. Continue antihypertensive medications and adjust as needed. Continue medications for his BPH. Metformin on hold. He has been started on mealtime insulin. Recent A1c was 8.2. Spoke at length with the about end of life issues. Explained that the patient is not terminal at this time and that decision about hospice is not necessary but is a family and patient decision. Explain his dementia will continue to worsen and decision about long-term fpc versus home care will be a family decision. adolescent coordinator spoke with . decided she wanted patient to [facility]. Ordered brain and cervical CT since he did have an unwitnessed fall but family refused all imaging. Patient was able to be discharged back to the facility on 07/26/23 Status at Discharge Cognitive/behavioral status at discharge: stable Time Spent with Patient Time attestation: Total time spent providing and/or coordinating discharge services: 38 minutes Time spent: Greater than 30 minutes Exam Narrative: AF 96.6 134/52 72 18 99% ra Gen - NARD Chest - CTA bilaterally, nml RR CV - RRR S1/S2 Abd - Soft, NT/ND, Positive BS - Celestin secured draining clear yellow urine Ext - No pedal edema Neuro - Alert but confused Psych - Nml mood and affect Skin - Warm and dry DS: Data Data Completed and Pending Labs on day of discharge: Labs from last 24 hours 07/26/23 07/26/23 07/25/23 12:13 08:41 19:42 PT INR APTT POC Capillary Glucose 191 H 111 H 340 H Lactic Acid C-Reactive Protein 07/25/23 14:46 PT 14.5 INR 1.1 APTT 39.1 H POC Capillary Glucose Lactic Acid 0.9 C-Reactive Protein 5.0 H Discharge Plan Discharge Attending physician on discharge: Demetrio Stinson Discharging Clinician:
--- NOTE | 2023-07-29 12:45 | PC.NURSE ---
Informed Dr. Stinson of Culture. Dr. Stinson ordered Amoxicillin 500 mg every 8 hours by mouth for 5 days. Called [facility] and received fax to fax order to nurse. Order faxed.
--- NOTE | 2023-08-05 08:58 | PC.NURSE ---
Blood cultures are negative. Dr. Shantell de la torre.
== END 2023-07-26 15:30 | DRG 690 ==
LOC: ANHED 12:44 → ANH3MED 15:23
PROVIDERS: Admitting Provider Internal Medicine; Emergency Provider Emergency Medicine; PCP Internal Medicine; Visit Provider Internal Medicine
DX: N39.0 Urinary tract infection, site not specified (principal); R33.9 Retention of urine, unspecified; W19.XXXA Unspecified fall, initial encounter; R31.0 Gross hematuria; D64.9 Anemia, unspecified; E11.9 Type 2 diabetes mellitus without complications; F03.90 Unspecified dementia, unspecified severity, without behavioral disturbance, psychotic disturbance, mood disturbance, and anxiety; C67.9 Malignant neoplasm of bladder, unspecified; N40.0 Benign prostatic hyperplasia without lower urinary tract symptoms; I10 Essential (primary) hypertension; E78.5 Hyperlipidemia, unspecified; Z66 Do not resuscitate; Z95.0 Presence of cardiac pacemaker
CPT/HCPCS: 36415; 71046; 80053; 81001; 82948; 83605; 85025; 85610; 85730; 86140; 87040; 87086; 87147; 87181; 87186; 93005; 97161; 97166; 99285; A9270; J0696; J1815; J7030

== ENCOUNTER 2023-08-16 19:58 | Emergency (ER) | payer MEDICARE, SELFPAY ==
[2023-08-16 20:10] VITALS: BP 139/65; PULSE 97; RESP 16; TEMP 36.3; O2SAT 100
--- NOTE | 2023-08-16 20:13 | ED.GENADULT ---
HPI - General Adult General Chief complaint: Urogenital-Male Stated complaint: penile pain, with catheter Time Seen by Provider: 08/16/23 20:04 History of Present Illness HPI narrative: This is a 78-year-old male with history of dementia in a indwelling Celestin catheter for urinary retention presenting with penile pain. Patient has dementia and had pulled on his catheter over several times today. He then developed penile pain and some blood in his urine. He was brought to the hospital for further evaluation. At this time the patient is A&O x1. He is denying pain anywhere. There is a small amount of blood in his Celestin catheter. Urologist is Dr. Garza. Related Data Home Medications Medication Instructions Recorded Confirmed atorvastatin 10 mg tablet 10 mg PO DAILY 12/01/19 08/12/23 losartan 100 mg tablet 100 mg PO DAILY 12/01/19 08/12/23 finasteride 5 mg tablet 5 mg PO DAILY 07/19/23 08/12/23 metformin 500 mg tablet 1,000 mg PO BID 07/19/23 08/12/23 sertraline 25 mg tablet 25 mg PO DAILY 07/19/23 08/12/23 tamsulosin 0.4 mg capsule 0.4 mg PO HS 07/19/23 08/12/23 Allergies Allergy/AdvReac Type Severity Reaction Status Date / Time No Known Allergies Allergy Unknown Verified 07/17/23 19:47 [facility] Past Medical History Medical History BPH (benign prostatic hyperplasia) Bradycardia Dementia Essential hypertension Type 2 diabetes mellitus Surgical History Surgical History History of permanent cardiac pacemaker placement History of repair of rotator cuff Family History Family History Mother Diabetes mellitus Sibling Cerebrovascular accident Sibling Cancer Social History Social History Social History: Surrogate medical decision makers: Laenn Torres (spouse), Alexandre Torres (son), and Claudia Tello (daughter). Code status: Do not resuscitate. Smoking status: Never smoker Alcohol intake: never Substance use: never Substance use type: does not use Additional living arrangements comments: [facility]. Additional occupation/education comments: Retired from [employer]. Spiritual care concerns: No Exam Narrative: APPEARANCE: No apparent distress. A&O x1 Head: atraumatic. EYES: EOMI, NOSE: Atraumatic NECK: Trachea midline RESPIRATORY: No increased rate of breathing CARDIOVASCULAR: RRR, ABDOMINAL: palpable bladder, nontender, no guarding rebound MUSCULOSKELETAl: No obvious deformities NEURO: Alert. Moving 4/4 extremities SKIN:: Warm, dry. Normal color PSYCHIATRIC: Normal affect Course Vital Signs Vital signs: Vital Signs Temperature 97.4 F L 08/16/23 20:10 Pulse Rate 97 08/16/23 20:10 Respiratory Rate 16 08/16/23 20:10 Blood Pressure 139/65 08/16/23 20:10 Pulse Oximetry 100 08/16/23 20:10 Temperature 97.4 F L 08/16/23 20:10 Pulse Rate 97 08/16/23 20:10 Respiratory Rate 16 08/16/23 20:10 Blood Pressure 139/65 08/16/23 20:10 Pulse Oximetry 100 08/16/23 20:10 Medical Decision Making [facility] Narrative Medical decision making narrative: -Course: 78-year-old male with dementia indwelling Celestin presenting with catheter malfunction. Patient was pulling on the catheter and then had some hematuria and it stopped draining. We repositioned the catheter and irrigated at. On re-evaluation the urine passing was clear. Point of care ultrasound showed a decompressed bladder with no evidence of retention or clots. Patient will be discharged back to [facility] with return precautions. -DDX includes but is not limited to: Celestin dislodgement, catheter clogging, hematuria -Co-morbidities complicating care: dementia, BPH -Social determinants of health: [facility] resident -Independent interpretation of studies: UA sent for culture
--- NOTE | 2023-08-16 20:40 | PC.NURSE ---
Pt arrives with rogers catheter in place, but not draining, with hematuria noted in bag. Per pts family, pt has hx of pulling on catheter. Family states pt had catheter wrapped around foot this PM. Pt bladder scanned per EDP Zych, which showed 129mL of urine in bladder. Pts catheter irrigated with sodium chloride with no success. Pts catheter balloon deflated and advanced in pts bladder, balloon reinflated, and catheter started to drain. Hematuria noted, no clots. EDP Zych notified. Will continue to monitor pts output.
[2023-08-16 20:54] VITALS: BP 129/59; PULSE 88; RESP 18; O2SAT 100
[2023-08-16 21:57] LABS: Appearance Urine Cloudy (Clear); Bacteria Urine None Seen /hpf; Bilirubin Urine Negative (Negative); Blood Urine 3+ (Negative); Color Urine Yellow (Yellow); Glucose Urine UA Negative (Negative); Ketones Urine Negative (Negative); Leukocyte Esterase Ur 1+ LEU/UL (Negative); Need Manual Microscopic Reviewed; Nitrate Urine Negative (Negative); Non Pathogenic Casts 0-2; Protein Urine 1+ mg/dL (Negative); RBC Urine >100 /hpf (0-2); Squamous Epithelial Cell Urine Occasional /hpf (Few); Urobilinogen Urine 0.2 mg/dL (<2.0)
[2023-08-16 22:03] LABS: Add Urine Microscopic? YES
== END 2023-08-16 21:53 ==
PROVIDERS: Emergency Provider Emergency Medicine; PCP Internal Medicine
DX: R31.9 Hematuria, unspecified (principal); Z46.6 Encounter for fitting and adjustment of urinary device; F03.90 Unspecified dementia, unspecified severity, without behavioral disturbance, psychotic disturbance, mood disturbance, and anxiety; E11.9 Type 2 diabetes mellitus without complications; I10 Essential (primary) hypertension; N40.0 Benign prostatic hyperplasia without lower urinary tract symptoms; Z66 Do not resuscitate; Z95.0 Presence of cardiac pacemaker; Z79.84 Long term (current) use of oral hypoglycemic drugs
CPT/HCPCS: 51702; 81001; 87086; 87147; 87181; 87186; 99283

== ENCOUNTER 2023-09-08 13:00 | Inpatient (IN) | payer MEDICARE, SELFPAY ==
[2023-09-08] VITALS (8 sets, daily range): BP systolic 131–160; BP diastolic 58–95; PULSE 66–92; RESP 8–20; TEMP 36.4–36.6; O2SAT 92–100
--- NOTE | ~2023-09-08 | CT_ITS ---
EXAMINATION: CT abdomen pelvis w con DATE: 09/08/2023 16:08 INDICATION: Abdominal pain and constipation TECHNIQUE: Computed tomography (CT) of the abdomen and pelvis was performed with 100 mL Omnipaque-350 intravenous contrast. Automated exposure control and iterative reconstruction technique were employe d. The dose-length product was 750.60 mGy-cm. COMPARISON: CT abdomen pelvis dated 07/17/2023 and PET/CT dated 01/29/2021 FINDINGS: Calcified left lower lobe nodule consistent with old granulomatous disease. No significant interval c hange in several 6 mm or smaller noncalcified granulomata in the bilateral lungs, right greater than left, which are without evident FDG uptake on prior PET/CT. Heart size is normal. Atherosclerotic cor onary artery calcifications. Dual-lead cardiac pacemaker with lead tips at the right atrial appendage and along the anterior wall of the right ventricle. No pericardial or pleural effusion. Cholelithias is. Liver, spleen, right kidney and bilateral adrenal glands are normal. 3.1 cm left renal cyst. Mild to moderate fatty atrophy of the pancreas greatest at the pancreatic neck and body. No significant c hange in a 1.1 cm cystic lesion at the uncinate process of the pancreas which is more readily visible on the current postcontrast imaging. Large amount of stool scattered throughout the colon consistent with provided history of constipation. There is minimal wall thickening at the rectum and mild stran ding in the mesorectal fat consistent with likely secondary stercoral colitis. Small bowel and append ix are normal. Bladder is unremarkable. Prostatic calcifications. No free intraperitoneal gas or flui d. No pathologically enlarged abdominal or pelvic lymphadenopathy. Severe thoracic and lumbar spondyl osis. Chronic T12 compression fracture with 20% anterior vertebral body height loss. IMPRESSION: 1. Large amount of stool throughout the colon consistent with provided history of constipation with s econdary stercoral colitis at the rectum. 2. Cholelithiasis. 3. 1.1 cm cystic lesion at the uncinate process of the pancreas. The differential diagnosis includes pseudocyst, intraductal papillary mucinous neoplasm (IPMN), mucinous cystic neoplasm (MCN), and the l ess common serous cystadenoma and neuroendocrine tumor. Correlate for history of pancreatitis I would recommend pre or follow-up pre and postcontrast MRI or CT. Reviewed, dictated and finalized at location A. OR [facility] IMPRESSION: 1. Large amount of stool throughout the colon consistent with provided history of constipation with secondary stercoral colitis at the rectum. 2. Cholelithiasis. 3. 1.1 cm cystic lesion at the uncinate process of the pancreas. The differenti al diagnosis includes pseudocyst, intraductal papillary mucinous neoplasm (IPMN ), mucinous cystic neoplasm (MCN), and the less common serous cystadenoma and n euroendocrine tumor. Correlate for history of pancreatitis I would recommend pr e or follow-up pre and postcontrast MRI or CT.
[2023-09-08 13:23] LABS: Basophils Absolute Auto 0.1 K/mm3 (0.0-0.1); Basophils Percent Auto 1.3 % (0.2-1.2); Eosinophils Absolute Auto 0.1 K/mm3 (0-0.3); Eosinophils Percent Auto 1.2 % (0-4.4); Hematocrit 31.7 % (42.0-52.0); Hemoglobin 9.5 g/dL (14.0-18.0); Immature Granulocyte Absolute 0.01 K/mm3 (0.00-0.031); Immature Granulocyte Percent A 0.1 % (0-0.5); Lymphocytes Absolute Auto 1.25 K/mm3 (0.9-3.2); Lymphocytes Percent Auto 16.5 % (18.3-44.2); Mean Corpuscular Hemoglobin 25.3 pg (26-34); Mean Corpuscular Volume 84.3 fl (80-100); Mean Platelet Volume 11.3 fl (7.4-10.4); Monocytes Absolute Auto 0.8 K/mm3 (0.1-0.6); Monocytes Percent Auto 10.4 % (2.6-8.5); Neutrophils Absolute Auto 5.3 K/mm3 (1.3-6.7); Neutrophils Percent Auto 70.5 % (45.5-73.1); Platelet Count Result 263 k/mm3 (150-375); Red Blood Count 3.76 M/mm3 (4.6-6.20); Red Cell Distribution Width 15.9 % (11.5-14.5); White Blood Count 7.6 K/mm3 (4.5-10.0)
[2023-09-08 13:32] LABS: Alanine Aminotransferase 15 U/L (6-50); Alkaline Phosphatase 105 U/L (38-126); Anion Gap 8 mmol/L (8-16); Aspartate Amino Transferase 22 U/L (17-59); Bilirubin,Total 0.7 mg/dL (0.2-1.3); Blood Urea Nitrogen 29 mg/dL (9-20); Calcium 9.1 mg/dL (8.4-10.2); Carbon Dioxide 27 mmol/L (22-30); Chloride 108 mmol/L (98-107); Estimated CRCL calculation 60 ml/min; Estimated Glomerular Filt Rate > 60; Glucose 213 mg/dL (65-110); Lipase 20 U/L (23-300); Potassium 3.6 mmol/L (3.4-5.0); Sodium 143 mmol/L (137-145)
[2023-09-08 15:47] LABS: Appearance Urine Cloudy (Clear); Bacteria Urine 4+ /hpf; Bilirubin Urine Negative (Negative); Blood Urine 2+ (Negative); Calcium Oxalate Crystals Urine Present /hpf; Color Urine Yellow (Yellow); Glucose Urine UA 3+ mg/dL (Negative); Ketones Urine Trace mg/dL (Negative); Leukocyte Esterase Ur 1+ LEU/UL (Negative); Need Manual Microscopic Reviewed; Nitrate Urine Negative (Negative); Non Pathogenic Casts 0-2; Protein Urine Negative (Negative); RBC Urine 0-2 /hpf (0-2); Specific Grav Ur 1.028 (1.001-1.035); Squamous Epithelial Cell Urine None seen /hpf (Few); WBC Urine 21-50 /hpf
[2023-09-08 15:48] LABS: Add Urine Microscopic? YES
--- NOTE | 2023-09-08 16:02 | ED.ABDPAIN ---
HPI - Abdominal Pain General Chief Complaint: Abdominal Pain Stated Complaint: Abdominal pain, constipation Time Seen by Provider: 09/08/23 14:36 History of Present Illness HPI narrative: Patient is a 78-year-old male with a history of dementia, chronic indwelling Celestin, hypertension, diabetes presenting with abdominal pain. Patient's family is at bedside and assists with the history. States that he has a history of a bowel obstruction about 15 years ago. He was unable to have a bowel movement for approximately 2 weeks and then he had 1 several days ago. States that he continues to have bloating of the abdomen and continues to complain of abdominal pain. He has not had a bowel movement for the last 3-4 days. He has complained of some nausea but no vomiting. Patient is A&O x1 which is baseline for him. Related Data Home Medications Medication Instructions Recorded Confirmed atorvastatin 10 mg tablet 10 mg PO DAILY 12/01/19 09/08/23 losartan 100 mg tablet 100 mg PO DAILY 12/01/19 09/08/23 finasteride 5 mg tablet 5 mg PO DAILY 07/19/23 09/08/23 metformin 500 mg tablet 1,000 mg PO BID 07/19/23 09/08/23 sertraline 25 mg tablet 25 mg PO DAILY 07/19/23 09/08/23 tamsulosin 0.4 mg capsule 0.4 mg PO HS 07/19/23 09/08/23 Allergies Allergy/AdvReac Type Severity Reaction Status Date / Time No Known Allergies Allergy Unknown Verified 09/08/23 23:33 Review of Systems Review of Systems: ROS unobtainable: Yes unobtainable due to medical condition (underlying dementia) [facility] Past Medical History Medical History BPH (benign prostatic hyperplasia) Bradycardia Dementia Essential hypertension Type 2 diabetes mellitus Surgical History Surgical History History of permanent cardiac pacemaker placement History of repair of rotator cuff Family History Family History Mother Diabetes mellitus Sibling Cerebrovascular accident Sibling Cancer Social History Social History Social History: Surrogate medical decision makers: Leann Torres (spouse), Alexandre Torres (son), and Claudia Tello (daughter). Code status: Do not resuscitate. Smoking status: Never smoker Alcohol intake: never Substance use: never Substance use type: does not use Additional living arrangements comments: [facility]. Additional occupation/education comments: Retired from [employer]. Spiritual care concerns: No Exam Narrative: GENERAL: Nontoxic, no acute distress HEAD: Normocephalic, atraumatic. EYES: PERRLA and EOMI. ENT: Mucous membranes dry. NECK: Supple. CHEST: Clear to auscultation. No respiratory distress. HEART: Regular rate and rhythm ABDOMEN: Soft, mild diffuse abdominal tenderness, no guarding or rebound EXTREMITIES: Normal range of motion. No edema. SKIN: Warm, dry, no rash. NEURO: Alert and oriented x1. moves all extremities spontaneously PSYCH: Normal mood and affect. Course Vital Signs Vital signs: Vital Signs Temperature 97.6 F 09/08/23 13:13 Pulse Rate 82 09/08/23 13:13 Respiratory Rate 15 09/08/23 13:13 Blood Pressure 160/59 H 09/08/23 13:13 Pulse Oximetry 100 09/08/23 13:13 Oxygen Delivery Room Air 09/08/23 13:13 Temperature 97.8 F 09/11/23 14:00 Pulse Rate 62 09/11/23 14:00 Respiratory Rate 18 09/11/23 14:00 Blood Pressure 104/40 L 09/11/23 14:00 Pulse Oximetry 100 09/11/23 14:00 Oxygen Delivery Room Air 09/11/23 09:00 MDM - Abdominal Pain MDM Narrative Medical decision making narrative: 78-year-old male presenting with abdominal pain and constipation. Vitals stable. Exam remarkable for the above. CT abdomen pelvis concerning for constipation with rectal impaction with stercoral colitis. UA is concerning for infection.
--- NOTE | 2023-09-08 18:58 | PC.NURSE ---
Report to Stanley MACK
[2023-09-08] MEDS: cefTRIAXone 2 GM/NS 100 ML 2 GM/100 ML BAG IVPB (20:22)
--- NOTE | 2023-09-08 20:34 | PM.IMHP ---
H&P: HPI History of Present Illness Date/Time: 09/08/23 20:34 Chief Complaint: CONSTIPATION Narrative: THIS IS A 78-YEAR-OLD MALE WITH PAST MEDICAL HISTORY SIGNIFICANT FOR DEMENTIA, TYPE DIABETES MELLITUS, BENIGN PROSTATIC HYPERPLASIA, URINARY RETENTION, PATIENT RESIDES AT MEMORY CARE UNIT AT LOCAL RESIDENTIAL. WAS BROUGHT TO THE EMERGENCY ROOM FOR EVALUATION DUE TO ABDOMINAL PAIN PATIENT IS UNABLE TO PROVIDE ANY HISTORY WHICH HAS BEEN OBTAINED FROM FAMILY MEMBERS WHO ARE AT BEDSIDE. CT OF ABDOMEN AND PELVIS WAS SIGNIFICANT FOR LARGE AMOUNT OF STOOL PRESENT IN THE COLON. PRESENT HAS BEEN PLACED IN OBSERVATION FOR FURTHER EVALUATION MANAGEMENT AND TREATMENT. EXAMINATION: CT abdomen pelvis w con DATE: 09/08/2023 16:08 INDICATION: Abdominal pain and constipation TECHNIQUE: Computed tomography (CT) of the abdomen and pelvis was performed with 100 mL Omnipaque-350 intravenous contrast. Automated exposure control and iterative reconstruction technique were employed. The dose-length product was 750.60 mGy-cm. COMPARISON: CT abdomen pelvis dated 07/17/2023 and PET/CT dated 01/29/2021 FINDINGS: Calcified left lower lobe nodule consistent with old granulomatous disease. No significant interval change in several 6 mm or smaller noncalcified granulomata in the bilateral lungs, right greater than left, which are without evident FDG uptake on prior PET/CT. Heart size is normal. Atherosclerotic coronary artery calcifications. Dual-lead cardiac pacemaker with lead tips at the right atrial appendage and along the anterior wall of the right ventricle. No pericardial or pleural effusion. Cholelithiasis. Liver, spleen, right kidney and bilateral adrenal glands are normal. 3.1 cm left renal cyst. Mild to moderate fatty atrophy of the pancreas greatest at the pancreatic neck and body. No significant change in a 1.1 cm cystic lesion at the uncinate process of the pancreas which is more readily visible on the current postcontrast imaging. Large amount of stool scattered throughout the colon consistent with provided history of constipation. There is minimal wall thickening at the rectum and mild stranding in the mesorectal fat consistent with likely secondary stercoral colitis. Small bowel and appendix are normal. Bladder is unremarkable. Prostatic calcifications. No free intraperitoneal gas or fluid. No pathologically enlarged abdominal or pelvic lymphadenopathy. Severe thoracic and lumbar spondylosis. Chronic T12 compression fracture with 20% anterior vertebral body height loss. IMPRESSION: 1. Large amount of stool throughout the colon consistent with provided history of constipation with secondary stercoral colitis at the rectum. 2. Cholelithiasis. 3. 1.1 cm cystic lesion at the uncinate process of the pancreas. The differential diagnosis includes pseudocyst, intraductal papillary mucinous neoplasm (IPMN), mucinous cystic neoplasm (MCN), and the less common serous cystadenoma and neuroendocrine tumor. Correlate for history of pancreatitis I would recommend pre or follow-up pre and postcontrast MRI or CT. Review of Systems Review of Systems: ROS unobtainable: Yes unobtainable due to medical condition (DEMENTIA) [facility] Past Medical History Medical History BPH (benign prostatic hyperplasia) Bradycardia Dementia Essential hypertension Type 2 diabetes mellitus Surgical History Surgical History History of permanent cardiac pacemaker placement History of repair of rotator cuff Family History Family History Mother Diabetes mellitus Sibling Cerebrovascular accident Sibling Cancer Social History Social History Social History: Surrogate medical decision makers: Leann Torres (spouse), Alexandre Torres (son), and Claudia Tello ([facility]
[2023-09-08] MEDS: polyethylene glycoL 3350 238 GM BOTTLE PO (21:37)
[2023-09-08 21:46] LABS: Glucose Point of Care 202 mg/dl (65-105)
[2023-09-09 06:00] VITALS: BP 135/48; PULSE 85; RESP 18; O2SAT 100
[2023-09-09] MEDS: SERTRALINE HCL 25 MG TABLET PO (09:49)
[2023-09-09] MEDS: LOSARTAN POTASSIUM 100 MG TABLET PO (09:49)
[2023-09-09] MEDS: polyethylene glycoL 3350 17 GM POWD.PACK PO ×2 (09:49→17:50)
[2023-09-09] MEDS: FINASTERIDE 5 MG TABLET PO (09:49)
--- NOTE | 2023-09-09 10:49 | PM.CNGS ---
Assessment and Plan Assessment and plan (1) Stercoral colitis: Code(s): K52.89 - Other specified noninfective gastroenteritis and colitis Status: Acute Assessment and Plan: CT reviewed and shows a large amount of stool throughout the colon with secondary stercoral colitis at the rectum. We would recommend medical treatment with laxatives/enemas. I assisted in giving a fleets enema this morning. We will stop the MiraLax that was started by the ER and start GoLYTELY. Surgical management is reserved for perforation or bowel ischemia in this setting. There is no evidence of perforation on CT and he does not have any peritoneal signs. Will continue with conservative management and monitor with serial abdominal exams. 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 Murray. Thank you for allowing us to see the patient in consultation and we will continue to follow along with you. History of Present Illness Consult details Consult date: 09/09/23 Reason for consult: other (Stercoral colitis) Requesting physician: Mikaela Esqueda MD Narrative: This is a 78-year-old man who presented to the ER from [facility] for evaluation of abdominal pain and constipation. He is a poor historian due to dementia, therefore his history is obtained by discussions with family at the bedside and review of his electronic medical record. He has been complaining of abdominal pain for the last few days. His pain comes intermittently and he will bend over and tell family he is uncomfortable. The family believes he has only had 1 bowel movement in the past 2 weeks, with that bowel movement being just a few days ago. They state he has a longstanding history of constipation and had an issue similar to this about 15-20 years ago. Following that episode, he was taking fiber daily and monitoring his bowels when he was still living at home. Since he has been at the [facility], he is no longer on a regular bowel regimen. Labs in the ER showed a normal white blood cell count of 7600. CT scan of the abdomen and pelvis showed a large amount of stool throughout the colon consistent with constipation, with secondary stercoral colitis at the rectum. Incidentally noted is cholelithiasis, and a 1.1 cm cystic lesion at uncinate process of the pancreas. The patient was started on MiraLax in the ER. Overnight, he has drank about half the bottle of MiraLax that his son has been giving him. No nausea or vomiting. He has had a few smears, but no significant bowel movement. Our service has been consulted for the stercoral colitis. He is seen this morning. He does report having generalized abdominal pain. He states he feels full and bloated. No other complaints at this time. No previous abdominal surgeries. He has not had any enemas. His family does not feel he would tolerate them well. Review of Systems Review of Systems: ROS unobtainable: Yes unobtainable due to mental status PMFSH Past Medical History Medical History BPH (benign prostatic hyperplasia) Bradycardia Dementia Essential hypertension Type 2 diabetes mellitus Surgical History Surgical History (Rev
[2023-09-09] MEDS: PEG (High)/E-LYTE SOLN 4,000 ML BTL 3000 ML PO (13:27)
[2023-09-09 14:00] VITALS: BP 153/56; PULSE 80; RESP 18; TEMP 35.8; O2SAT 100
--- NOTE | 2023-09-09 14:22 | WPDURCON ---
Assessment and Plan Assessment and plan (1) Urinary retention: Code(s): R33.9 - Retention of urine, unspecified Status: Acute Assessment and Plan: A known, ongoing issue. 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 He had an indwelling Celestin, however was repeatedly tugging and removing his catheter. Eventually the decision was made to not replace the catheter and manage symptomatically if having any issues as he is now on comfort care. He is comfortable at this time. Bladder scan as needed if patient develops discomfort and perform straight cath as needed if having bothersome symptoms and PVR >300. Urology Consult Note HPI Date Seen: 09/09/23 Requesting Physician: Samuel Johnson MD Primary Care Provider: Koko Scanlon, Consult Narrative Narrative: Lucien Torres is a 78 year old male with a history of advanced dementia, BPH, and urinary retention who is being seen in consultation for evaluation of urinary retention. He was recently admitted 07/21/2023 and was evaluated by Dr. Garza for gross hematuria. He underwent cystoscopy, clot evacuation, and TURBT of a small 2 cm bladder mass (pathology Ta, low-grade). He was then seen in the office in 08/2023 for voiding trial and after several unsuccessful attempts, Celestin catheter was replaced. Given his advanced dementia, he was repeatedly tugging and pulling out his catheter, therefore decision was made to not replace the catheter unless he had any discomfort. The plan was for him to enroll in hospice, however he did not qualify for this. He is now on palliative care. He presented to the hospital with abdominal pain which was felt to be due to constipation. On arrival to the ER, he was straight catheterized with about 900 cc urine output. His son is at the bedside who reports that he has had some dribbling urination throughout the day. He has not complained of any ongoing abdominal discomfort, suprapubic pain, or pressure. The patient is not able to provide any history. Discussed with his son, who maintains the decision that he would not like to have the catheter replaced. Discussed goals of care. Plan will be for bladder scan and straight catheterization as needed if the patient becomes uncomfortable. His creatinine is stable at 0.6. He is afebrile and his vital signs are stable. Review of Systems Review of Systems: ROS unobtainable: Yes unobtainable due to mental status PMFSH Past Medical History Medical History BPH (benign prostatic hyperplasia) Bradycardia Dementia Essential hypertension Type 2 diabetes mellitus Surgical History Surgical History History of permanent cardiac pacemaker placement History of repair of rotator cuff Family History Family History Mother Diabetes mellitus Sibling Cerebrovascular accident Sibling Cancer Social History Social History Social History: Surrogate medical decision makers: Leann Torres (spouse), Alexandre Torres (son), and Claudia Omer (daughter). Code status: Do not resuscitate. Smoking status: Never smoker Alcohol intake: never Substance use: never Substance use type: does not use Additional living arrangements comments: [facility]. Additional occupation/education comments: Retired from [employer]. Spiritual care concerns: No Meds Home Medications and Allergies Home Medications Medication Instructions Recorded Confirmed Type atorvastatin 10 mg tablet 10 mg PO DAILY 12/01/19 09/08/23 History losartan 100 mg tablet 100 mg PO DAILY 12/01/19 09/08/23 History finasteride 5 mg tablet 5 mg PO DAILY 07/19/23 09/08/23 History metformin 500 mg tablet 1,000 mg PO BID 07/19/23 09/08/23 History sertraline 25 mg tablet 25 mg PO DAILY 07/19/23 09/08/23 History ta
[2023-09-09 15:00] VITALS: O2SAT 98
--- NOTE | 2023-09-09 16:38 | PM.IMPN ---
Progress Note: A&P Assessment and Plan (1) Urinary retention: Code(s): R33.9 - Retention of urine, unspecified Status: Acute Assessment and Plan: A known, ongoing issue. 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 He had an indwelling Celestin, however was repeatedly tugging and removing his catheter. Eventually the decision was made to not replace the catheter and manage symptomatically if having any issues as he is now on comfort care. He is comfortable at this time. Bladder scan as needed if patient develops discomfort and perform straight cath as needed if having bothersome symptoms and PVR >300. (2) Stercoral colitis: Code(s): K52.89 - Other specified noninfective gastroenteritis and colitis Status: Acute Assessment and Plan: Suppository; GoLytely (3) Dementia with anxiety: Code(s): F03.94 - Unspecified dementia, unspecified severity, with anxiety Status: Acute Assessment and Plan: Safety and falls precautions (4) Pancreatic cyst: Code(s): K86.2 - Cyst of pancreas Status: Acute Assessment and Plan: Will involve GI (5) Constipation: Code(s): K59.00 - Constipation, unspecified Status: Acute Assessment and Plan: Suppositories; Time Spent With Patient Time with patient: 25 - 35 minutes Subjective Date/time seen: 09/09/23 16:38 Interval history: Seen and examined; poorly communicative Discussed with family at the bedside; no fresh concerns Review of Systems Review of Systems: ROS unobtainable: Yes unobtainable due to medical condition (DEMENTIA) and unobtainable due to mental status Exam Narrative: General: Awake, alert, comfortable, no acute distress HEENT: Normocephalic, atraumatic, sclerae anicteric Respiratory: Normal respiratory effort, no accessory muscle use Abdomen: Nondistended, soft, nontender Skin: Normal coloration, warm and dry Neurologic: No focal neuro deficits noted Psychiatric: Appropriate mood and affect, judgment and insight poor Const: General: comfortable, no acute distress, well developed, alert, awake, ill appearing chronically and average body habitus Nutritional Appearance: average body habitus HENMT: Head: normal to inspection, normocephalic and atraumatic Ears: hearing grossly normal bilaterally Face/Nose/Sinus: normal facial exam Face and sinus: normal facial exam Eyes: General: appearance normal, both eyes and all related structures Pupils: Equal, round and reactive pupils present EOM: EOMs intact bilaterally Neck: Neck: full ROM, no lymphadenopathy and no JVD Thyroid: thyroid normal Lymphatic: no lymphadenopathy noted Resp: Effort & Inspection: normal respiratory effort and able to speak in complete sentences Auscultation: clear to auscultation bilaterally Cardio: Jugular venous distension: no JVD Rate: regular rate Rhythm: regular rhythm Heart sounds: S1 normal heart sound present and S2 normal heart sound present : General: Yes deferred Skin: Rashes: no rashes Wounds: no wounds Neuro: General: CN's II-XI intact bilaterally Cranial nerves: Yes CN's II-XII intact bilaterally and Yes Equal, round and reactive pupils present Cognition (Neuro): normal cognition Speech: normal speech Gait exam (Neuro): Normal gait present Motor exam (neuro): 5/5 motor strength present throughout Extrem: General: normal to inspection, full ROM, no joint enlargement and no pedal edema Psych: Mental Status: mental status grossly abnormal Objective Data Vital Signs Vital Signs: Vital Signs - 24 hr 09/08/23 18:38 09/08/23 19:14 09/08/23 20:30 Temperature 97.9 F 97.7 F Pulse Rate 68 72 92 Respiratory Rate 16 20 19 Blood Pressure 135/58 L 141/63 H 147/95 H Pulse Oximetry 98 99 97 Oxygen Delivery 09/08/23 23:09 09/08/23 23:20 09/09/23 06:00 Temperature 97.9 F Pulse Rate 70 84 85 Respiratory Rate 16 20 18 Blood Pressure 142/80 H 131/78 135/48 L Pulse Oximetry 99 92 100
[2023-09-09 17:38] LABS: Glucose Point of Care 301 mg/dl (65-105)
[2023-09-09] MEDS: SODIUM CHLORIDE 0.9% IV 1,000 ML 100 ML IV CONT (17:49)
[2023-09-09] MEDS: INSULIN ASPART (*BKC) 100 UNITS/ML SUB-Q (17:50)
[2023-09-09 19:09] LABS: Hematocrit 33.5 % (42.0-52.0); Hemoglobin 10.2 g/dL (14.0-18.0); Mean Corpuscular HGB Conc 30.4 g/dl (32-36); Mean Corpuscular Volume 85.2 fl (80-100); Mean Platelet Volume 10.9 fl (7.4-10.4); Platelet Count Result 290 k/mm3 (150-375); Red Blood Count 3.93 M/mm3 (4.6-6.20); Red Cell Distribution Width 15.9 % (11.5-14.5); White Blood Count 9.1 K/mm3 (4.5-10.0)
[2023-09-09 19:19] LABS: Alanine Aminotransferase 72 U/L (6-50); Albumin Level 4.5 g/dL (3.5-5.1); Alkaline Phosphatase 101 U/L (38-126); Anion Gap 15 mmol/L (8-16); Aspartate Amino Transferase 31 U/L (17-59); Bilirubin,Total 0.7 mg/dL (0.2-1.3); Blood Urea Nitrogen 28 mg/dL (9-20); Calcium 8.9 mg/dL (8.4-10.2); Carbon Dioxide 24 mmol/L (22-30); Chloride 104 mmol/L (98-107); Estimated CRCL calculation 71 ml/min; Estimated Glomerular Filt Rate > 60; Glucose 171 mg/dL (65-110); Potassium 3.1 mmol/L (3.4-5.0); Sodium 143 mmol/L (137-145)
[2023-09-09] MEDS: INSULIN GLARGINE (*BKC) 100 UNITS/ML 9 UNITS SUB-Q (21:41)
[2023-09-09] MEDS: TAMSULOSIN HCL 0.4 MG CAPSULE PO (21:42)
[2023-09-10] LABS: Glucose Point of Care 161 mg/dl (65-105)
[2023-09-10] MEDS: SODIUM CHLORIDE 0.9% IV 1,000 ML 100 ML IV CONT ×2 (03:33→17:12)
[2023-09-10 06:40] VITALS: BP 162/80; PULSE 71; RESP 18; TEMP 36.6; O2SAT 98
[2023-09-10 06:55] LABS: Alanine Aminotransferase 14 U/L (6-50); Albumin Level 3.3 g/dL (3.5-5.1); Alkaline Phosphatase 89 U/L (38-126); Anion Gap 7 mmol/L (8-16); Aspartate Amino Transferase 29 U/L (17-59); Bilirubin,Total 0.5 mg/dL (0.2-1.3); Blood Urea Nitrogen 26 mg/dL (9-20); Calcium 8.1 mg/dL (8.4-10.2); Carbon Dioxide 26 mmol/L (22-30); Chloride 108 mmol/L (98-107); Estimated CRCL calculation 71 ml/min; Estimated Glomerular Filt Rate > 60; Glucose 106 mg/dL (65-110); Sodium 141 mmol/L (137-145)
[2023-09-10 06:57] LABS: Basophils Absolute Auto 0.1 K/mm3 (0.0-0.1); Basophils Percent Auto 0.9 % (0.2-1.2); Eosinophils Absolute Auto 0.1 K/mm3 (0-0.3); Eosinophils Percent Auto 1.3 % (0-4.4); Hematocrit 28.9 % (42.0-52.0); Hemoglobin 8.7 g/dL (14.0-18.0); Immature Granulocyte Absolute 0.02 K/mm3 (0.00-0.031); Immature Granulocyte Percent A 0.2 % (0-0.5); Lymphocytes Absolute Auto 1.42 K/mm3 (0.9-3.2); Lymphocytes Percent Auto 16.8 % (18.3-44.2); Mean Corpuscular HGB Conc 30.1 g/dl (32-36); Mean Corpuscular Hemoglobin 25.7 pg (26-34); Mean Corpuscular Volume 85.5 fl (80-100); Mean Platelet Volume 11.7 fl (7.4-10.4); Monocytes Percent Auto 11.5 % (2.6-8.5); Neutrophils Absolute Auto 5.9 K/mm3 (1.3-6.7); Neutrophils Percent Auto 69.3 % (45.5-73.1); Platelet Count Result 256 k/mm3 (150-375); Red Blood Count 3.38 M/mm3 (4.6-6.20); Red Cell Distribution Width 15.9 % (11.5-14.5); White Blood Count 8.5 K/mm3 (4.5-10.0)
[2023-09-10 07:29] LABS: Glucose Point of Care 100 mg/dl (65-105)
[2023-09-10] MEDS: FINASTERIDE 5 MG TABLET PO (08:21)
[2023-09-10] MEDS: polyethylene glycoL 3350 17 GM POWD.PACK PO (08:21)
[2023-09-10] MEDS: SERTRALINE HCL 25 MG TABLET PO (08:21)
[2023-09-10] MEDS: LOSARTAN POTASSIUM 100 MG TABLET PO (08:21)
--- NOTE | 2023-09-10 09:54 | PM.IMPN ---
Progress Note: A&P Assessment and Plan (1) Urinary retention: Code(s): R33.9 - Retention of urine, unspecified Status: Acute Assessment and Plan: A known, ongoing issue. 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 He had an indwelling Celestin, however was repeatedly tugging and removing his catheter. Eventually the decision was made to not replace the catheter and manage symptomatically if having any issues as he is now on comfort care. He is comfortable at this time. Bladder scan as needed if patient develops discomfort and perform straight cath as needed if having bothersome symptoms and PVR >300. Urology: He had an indwelling Celestin, however was repeatedly tugging and removing his catheter. Eventually the decision was made to not replace the catheter and manage symptomatically if having any issues as he is now on comfort care. He is comfortable at this time. Straight cathed this morning with 750 cc urine output. Bladder scan as needed if patient develops discomfort and perform straight cath as needed if having bothersome symptoms and PVR >300. Intermittent straight catheterization can be continued by staff when he returns to his nursing facility. (2) Stercoral colitis: Code(s): K52.89 - Other specified noninfective gastroenteritis and colitis Status: Acute Assessment and Plan: Suppository; GoLytely Surgery: He has had numerous bowel movements. He is no longer complaining of abdominal pain and his exam is benign today. Will start advancing his diet. He will need to be continued on a bowel regimen after discharge when going back to the [facility]. (3) Dementia with anxiety: Code(s): F03.94 - Unspecified dementia, unspecified severity, with anxiety Status: Acute Assessment and Plan: Safety and falls precautions (4) Pancreatic cyst: Code(s): K86.2 - Cyst of pancreas Status: Acute Assessment and Plan: Will involve GI (5) Constipation: Code(s): K59.00 - Constipation, unspecified Status: Acute Assessment and Plan: Suppositories; (6) Anemia: Qualifiers: Anemia type: iron deficiency Iron deficiency anemia type: chronic blood loss Qualified Code(s): D50.0 - Iron deficiency anemia secondary to blood loss (chronic) Code(s): D64.9 - Anemia, unspecified Status: Acute (7) Hypokalemia: Code(s): E87.6 - Hypokalemia Status: Acute Time Spent With Patient Time with patient: 25 - 35 minutes Subjective Date/time seen: 09/10/23 09:54 Interval history: Seen and examined; poorly communicative Discussed with family at the bedside; no fresh concerns Review of Systems Review of Systems: ROS unobtainable: Yes unobtainable due to medical condition (DEMENTIA) and unobtainable due to mental status Exam Narrative: General: Awake, alert, comfortable, no acute distress HEENT: Normocephalic, atraumatic, sclerae anicteric Respiratory: Normal respiratory effort, no accessory muscle use Abdomen: Nondistended, soft, nontender Skin: Normal coloration, warm and dry Neurologic: No focal neuro deficits noted Psychiatric: Appropriate mood and affect, judgment and insight poor Const: General: comfortable, no acute distress, well developed, alert, awake, ill appearing chronically and average body habitus Nutritional Appearance: average body habitus HENMT: Head: normal to inspection, normocephalic and atraumatic Ears: hearing grossly normal bilaterally Face/Nose/Sinus: normal facial exam Face and sinus: normal facial exam Eyes: General: appearance normal, both eyes and all related structures Pupils: Equal, round and reactive pupils present EOM: EOMs intact bilaterally Neck: Neck: full ROM, no lymphadenopathy and no JVD Thyroid: thyroid normal Lymphatic: no lymphadenopathy noted Resp: Effort & Inspection: normal respiratory effort and able to speak in complete sentences Auscultation: clear to auscultation
[2023-09-10 11:08] LABS: Glucose Point of Care 91 mg/dl (65-105)
--- NOTE | 2023-09-10 11:08 | WPDUROPN2 ---
Progress Note: A&P Assessment and Plan (1) Urinary retention: Code(s): R33.9 - Retention of urine, unspecified Status: Acute Assessment and Plan: A known, ongoing issue. 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 He had an indwelling Celestin, however was repeatedly tugging and removing his catheter. Eventually the decision was made to not replace the catheter and manage symptomatically if having any issues as he is now on comfort care. He is comfortable at this time. Straight cathed this morning with 750 cc urine output. Bladder scan as needed if patient develops discomfort and perform straight cath as needed if having bothersome symptoms and PVR >300. Intermittent straight catheterization can be continued by staff when he returns to his nursing facility. Subjective Subjective Date/Time Seen: 09/10/23 11:08 Interval history: Lucien is asleep during my encounter today. His daughter is at the bedside. She reports he has been resting comfortably. Early this morning he complained of some suprapubic pressure and discomfort. He was straight catheterized with 750 cc urine output. Since then, he has been comfortable. Review of Systems Review of Systems: ROS unobtainable: Yes unobtainable due to mental status Exam Narrative: General: Asleep, no acute distress HEENT: Normocephalic, atraumatic Respiratory: Normal respiratory effort Abdomen: Nondistended, soft, nontender Skin: Normal coloration, warm and dry Neurologic: No focal neuro deficits noted Objective Data Vital Signs Vital Signs: Vital Signs - 24 hr 09/09/23 14:00 09/09/23 15:00 09/10/23 06:40 Temperature 96.4 F L 97.9 F Pulse Rate 80 71 Respiratory Rate 18 18 Blood Pressure 153/56 H 162/80 H Pulse Oximetry 100 98 98 Oxygen Delivery Room Air 09/10/23 08:00 Temperature Pulse Rate Respiratory Rate Blood Pressure Pulse Oximetry Oxygen Delivery Room Air Intake/Output Intake/Output: Intake & Output 09/07/23 09/08/23 09/09/23 09/10/23 23:59 23:59 23:59 23:59 Intake Total 424 612 3895 Output Total 950 700 750 Balance -850 280 450 Meds/Results Medications: Active Medications Generic Name Dose Route Start Last Admin Trade Name Freq PRN Reason Stop Dose Admin Acetaminophen 650 mg 09/09/23 22:25 Acetaminophen 325 Mg Tablet PO Q6H PRN Mild Pain (1-3) or Fever Dextrose 12.5 gm 09/09/23 16:44 Dextrose 50% 25 Gm/50 Ml Syringe IV PUSH PRN PRN Hypoglycemia Protocol Finasteride 5 mg 09/09/23 09:00 09/10/23 08:21 Finasteride 5 Mg Tablet PO 5 mg DAILY JAIDEN Administration Glucagon 1 mg 09/09/23 16:44 Glucagon For Inj 1 Mg Vial IM PRN PRN Hypoglycemia Protocol Glucose 15 gm 09/09/23 16:44 Glucose Oral Gel 15 Gm Of Glucse In 37.5 Gm Tube PO PRN PRN Hypoglycemia Protocol Sodium Chloride 1,000 mls @ 100 mls/hr 09/09/23 16:40 09/10/23 03:33 Normal Saline Iv IV CONT 09/12/23 23:30 100 mls/hr .Q10H JAIDEN Administration Dextrose 1,000 mls @ 100 mls/hr 09/09/23 16:44 Dextrose 5% 1,000 Ml IVPB PRN PRN Hypoglycemia Protocol Insulin Aspart 3 - 6 units 09/09/23 17:00 09/10/23 08:18 Insulin Aspart (*Bkc) 100 Units/Ml SUB-Q Not Given TIDWM [facility] Protocol Insulin Glargine 9 units 09/09/23 21:00 09/09/23 21:41 Insulin Glargine (*Bkc) 100 Units/Ml 0.15 units/kg (9 units) 9 units SUB-Q Administration HS JAIDEN Losartan Potassium 100 mg 09/09/23 09:00 09/10/23 08:21 Losartan Potassium 100 Mg Tablet PO 100 mg DAILY JAIDEN Administration Polyethylene Glycol 17 gm 09/09/23 09:00 09/10/23 08:21 Polyethylene Glycol 3350 17 Gm Powd.Pack PO 17 gm BID JAIDEN Administration Potassium Chloride 40 meq 09/10/23 09:55 Potassium Chloride 20 Meq Packet (For Liquid) PO 09/10/23 17:01 BID JAIDEN Sertraline HCl 25 mg 09/09/23 09:00 09/10/23 08:21 Sertraline Hcl 25 Mg Tab
[2023-09-10 14:00] VITALS: BP 122/53; PULSE 64; RESP 18; TEMP 36.5; O2SAT 98
[2023-09-10] MEDS: POTASSIUM CHLORIDE 20 MEQ PACKET (FOR LIQUID) 40 MEQ PO (15:12)
--- NOTE | 2023-09-10 15:40 | PM.PNGS ---
Progress Note: A&P Assessment and Plan (1) Stercoral colitis: Code(s): K52.89 - Other specified noninfective gastroenteritis and colitis Status: Acute Assessment and Plan: CT reviewed and shows a large amount of stool throughout the colon with secondary stercoral colitis at the rectum. Patient improving with medical management. He has had numerous bowel movements. He is no longer complaining of abdominal pain and his exam is benign today. Will start advancing his diet. He will need to be continued on a bowel regimen after discharge when going back to the [facility]. Okay to discharge from a surgical standpoint once tolerating a solid diet. Follow up only as needed. (2) Constipation: Code(s): K59.00 - Constipation, unspecified Status: Acute Assessment and Plan: Will need a bowel regimen on discharge Plan I have discussed the patient's case and plan of care with Dr. Murray. Subjective Subjective Date/Time Seen: 09/10/23 15:40 Patient reports: no new complaints, feels better, tolerating liquids well, flatus and bowel movement Interval history: Patient doing well today. His daughter is at the bedside. She states that he has had at least 5 bowel movements through the night and this morning. He is not complaining of any abdominal pain for her today. When I asked the patient, he denies abdominal pain. He is doing well with clear liquids. No other complaints at this time. Review of Systems Review of Systems: ROS unobtainable: Yes unobtainable due to mental status Exam Const: General: comfortable and no acute distress Orientation/consciousness: patient oriented x3 GI: Inspection: non-distended GI Palp: Yes Soft to palpation (Much softer today), No Tenderness to palpation present (GI) and No Guarding due to palpation present (GI) Auscultation: normal bowel sounds Objective Data Vital Signs Vital Signs: Vital Signs - 24 hr 09/10/23 06:40 09/10/23 08:00 09/10/23 14:00 Temperature 97.9 F 97.7 F Pulse Rate 71 64 Respiratory Rate 18 18 Blood Pressure 162/80 H 122/53 L Pulse Oximetry 98 98 Oxygen Delivery Room Air Intake/Output Intake/Output: Intake & Output 09/07/23 09/08/23 09/09/23 09/10/23 23:59 23:59 23:59 23:59 Intake Total 408 956 5236 Output Total 950 700 750 Balance -850 280 570 Meds/Results Medications: Active Medications Generic Name Dose Route Start Last Admin Trade Name Freq PRN Reason Stop Dose Admin Acetaminophen 650 mg 09/09/23 22:25 Acetaminophen 325 Mg Tablet PO Q6H PRN Mild Pain (1-3) or Fever Dextrose 12.5 gm 09/09/23 16:44 Dextrose 50% 25 Gm/50 Ml Syringe IV PUSH PRN PRN Hypoglycemia Protocol Finasteride 5 mg 09/09/23 09:00 09/10/23 08:21 Finasteride 5 Mg Tablet PO 5 mg DAILY JAIDEN Administration Glucagon 1 mg 09/09/23 16:44 Glucagon For Inj 1 Mg Vial IM PRN PRN Hypoglycemia Protocol Glucose 15 gm 09/09/23 16:44 Glucose Oral Gel 15 Gm Of Glucse In 37.5 Gm Tube PO PRN PRN Hypoglycemia Protocol Sodium Chloride 1,000 mls @ 100 mls/hr 09/09/23 16:40 09/10/23 15:08 Normal Saline Iv IV CONT 09/12/23 23:30 Not Given .Q10H JAIDEN Dextrose 1,000 mls @ 100 mls/hr 09/09/23 16:44 Dextrose 5% 1,000 Ml IVPB PRN PRN Hypoglycemia Protocol Insulin Aspart 3 - 6 units 09/09/23 17:00 09/10/23 12:00 Insulin Aspart (*Bkc) 100 Units/Ml SUB-Q Not Given TIDWM [facility] Protocol Insulin Glargine 9 units 09/09/23 21:00 09/09/23 21:41 Insulin Glargine (*Bkc) 100 Units/Ml 0.15 units/kg (9 units) 9 units SUB-Q Administration HS JAIDEN Losartan Potassium 100 mg 09/09/23 09:00 09/10/23 08:21 Losartan Potassium 100 Mg Tablet PO 100 mg DAILY JAIDEN Administration Polyethylene Glycol 17 gm 09/09/23 09:00 09/10/23 08:21 Polyethylene Glycol 3350 17 Gm Powd.Pack PO 17 gm BID JAIDEN Adminis
[2023-09-10 16:27] LABS: Glucose Point of Care 120 mg/dl (65-105)
[2023-09-10 20:00] VITALS: O2SAT 98
[2023-09-10] MEDS: TAMSULOSIN HCL 0.4 MG CAPSULE PO (20:13)
[2023-09-10] MEDS: INSULIN GLARGINE (*BKC) 100 UNITS/ML 9 UNITS SUB-Q (20:14)
[2023-09-10 20:17] LABS: Glucose Point of Care 177 mg/dl (65-105)
[2023-09-10 23:10] VITALS: BP 121/49; PULSE 69; RESP 20; TEMP 36.4; O2SAT 100
--- NOTE | 2023-09-10 23:45 | PC.NURSE ---
attempted to straight cath patient due to reported bladder scanner reading of 500 ml in bladder, son declined at this time, patient finally resting in bed, educated about urinary retention and importance of not letting too more urine stay in bladder for too long and health complications of urinary retention. son still declined, planning to straight cath in AM if patient is unable to void still.
[2023-09-11] MEDS: SODIUM CHLORIDE 0.9% IV 1,000 ML 100 ML IV CONT (03:33)
[2023-09-11 04:45] VITALS: BP 126/57; PULSE 66; RESP 18; TEMP 36.2; O2SAT 100
[2023-09-11 07:09] LABS: Basophils Absolute Auto 0.1 K/mm3 (0.0-0.1); Basophils Percent Auto 1.2 % (0.2-1.2); Eosinophils Absolute Auto 0.2 K/mm3 (0-0.3); Eosinophils Percent Auto 2.6 % (0-4.4); Hematocrit 27.3 % (42.0-52.0); Immature Granulocyte Absolute 0.01 K/mm3 (0.00-0.031); Immature Granulocyte Percent A 0.2 % (0-0.5); Lymphocytes Absolute Auto 1.74 K/mm3 (0.9-3.2); Lymphocytes Percent Auto 30.6 % (18.3-44.2); Mean Corpuscular HGB Conc 29.3 g/dl (32-36); Mean Corpuscular Hemoglobin 25.2 pg (26-34); Mean Corpuscular Volume 86.1 fl (80-100); Mean Platelet Volume 11.1 fl (7.4-10.4); Monocytes Absolute Auto 0.7 K/mm3 (0.1-0.6); Neutrophils Percent Auto 52.4 % (45.5-73.1); Platelet Count Result 222 k/mm3 (150-375); Red Blood Count 3.17 M/mm3 (4.6-6.20); Red Cell Distribution Width 15.9 % (11.5-14.5); White Blood Count 5.7 K/mm3 (4.5-10.0)
[2023-09-11 07:27] LABS: Alanine Aminotransferase 17 U/L (6-50); Alkaline Phosphatase 79 U/L (38-126); Anion Gap 7 mmol/L (8-16); Aspartate Amino Transferase 30 U/L (17-59); Bilirubin,Total 0.4 mg/dL (0.2-1.3); Blood Urea Nitrogen 17 mg/dL (9-20); Calcium 7.7 mg/dL (8.4-10.2); Carbon Dioxide 22 mmol/L (22-30); Chloride 109 mmol/L (98-107); Estimated CRCL calculation 71 ml/min; Estimated Glomerular Filt Rate > 60; Glucose 78 mg/dL (65-110); Potassium 2.8 mmol/L (3.4-5.0); Sodium 138 mmol/L (137-145)
[2023-09-11 07:39] LABS: Glucose Point of Care 87 mg/dl (65-105)
[2023-09-11] MEDS: polyethylene glycoL 3350 17 GM POWD.PACK PO (09:00)
[2023-09-11] MEDS: POTASSIUM CHLORIDE 20 MEQ ER TABLET 40 MEQ PO ×2 (09:00→14:14)
[2023-09-11] MEDS: SERTRALINE HCL 25 MG TABLET PO (09:00)
[2023-09-11] MEDS: LOSARTAN POTASSIUM 100 MG TABLET PO (09:00)
[2023-09-11] MEDS: FINASTERIDE 5 MG TABLET PO (09:00)
[2023-09-11 11:15] LABS: Glucose Point of Care 128 mg/dl (65-105)
[2023-09-11 14:00] VITALS: BP 104/40; PULSE 62; RESP 18; TEMP 36.6; O2SAT 100
[2023-09-11 15:36] LABS: Anion Gap 4 mmol/L (8-16); Blood Urea Nitrogen 13 mg/dL (9-20); Calcium 7.5 mg/dL (8.4-10.2); Carbon Dioxide 23 mmol/L (22-30); Chloride 109 mmol/L (98-107); Estimated CRCL calculation 60 ml/min; Estimated Glomerular Filt Rate > 60; Glucose 129 mg/dL (65-110); Potassium 3.8 mmol/L (3.4-5.0); Sodium 136 mmol/L (137-145)
--- NOTE | 2023-09-11 16:09 | PM.DS ---
DS: Admitting Diagnosis Discharge Date 09/11/23 Admitting Diagnosis 1. Abdominal pain 2. Constipation 3. Hypokalemia 4. Urinary retention 5. Pancreatic cyst 6. Dementia 7. BPH; Urinary retention 8. NIDDM 9. Recurrent depression 10. Hypertension 11. Dyslipidemia DS: Discharge Diagnosis Discharge Diagnosis (1) Urinary retention: Code(s): R33.9 - Retention of urine, unspecified Status: Acute Assessment and Plan: A known, ongoing issue. 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 He had an indwelling Celestin, however was repeatedly tugging and removing his catheter. Eventually the decision was made to not replace the catheter and manage symptomatically if having any issues as he is now on comfort care. He is comfortable at this time. Bladder scan as needed if patient develops discomfort and perform straight cath as needed if having bothersome symptoms and PVR >300. Urology: He had an indwelling Celestin, however was repeatedly tugging and removing his catheter. Eventually the decision was made to not replace the catheter and manage symptomatically if having any issues as he is now on comfort care. He is comfortable at this time. Straight cathed this morning with 750 cc urine output. Bladder scan as needed if patient develops discomfort and perform straight cath as needed if having bothersome symptoms and PVR >300. Intermittent straight catheterization can be continued by staff when he returns to his nursing facility. (2) Stercoral colitis: Code(s): K52.89 - Other specified noninfective gastroenteritis and colitis Status: Acute Assessment and Plan: Suppository; GoLytely Surgery: He has had numerous bowel movements. He is no longer complaining of abdominal pain and his exam is benign today. Will start advancing his diet. He will need to be continued on a bowel regimen after discharge when going back to the [facility] care facility. (3) Dementia with anxiety: Code(s): F03.94 - Unspecified dementia, unspecified severity, with anxiety Status: Acute Assessment and Plan: Safety and falls precautions (4) Pancreatic cyst: Code(s): K86.2 - Cyst of pancreas Status: Acute Assessment and Plan: Will involve GI; Discharge to see Dr. Mcmanus (5) Constipation: Code(s): K59.00 - Constipation, unspecified Status: Acute Assessment and Plan: Suppositories; Moved his bowels (6) Anemia: Qualifiers: Anemia type: iron deficiency Iron deficiency anemia type: chronic blood loss Qualified Code(s): D50.0 - Iron deficiency anemia secondary to blood loss (chronic) Code(s): D64.9 - Anemia, unspecified Status: Acute Assessment and Plan: Chronic; stable (7) Hypokalemia: Code(s): E87.6 - Hypokalemia Status: Acute Assessment and Plan: Replete and monitor Plan 1. Abdominal pain 2. Constipation 3. Hypokalemia 4. Urinary retention 5. Pancreatic cyst 6. Dementia 7. BPH; Urinary retention 8. NIDDM 9. Recurrent depression 10. Hypertension 11. Dyslipidemia 12. Obesity DS: Summary Hospital Course Reason for hospitalization: 1. Constipation 2. Abdominal pain Hospital Course: Lucien Torres is a 78-year-old male with a history of dementia, chronic indwelling Celestin, hypertension, diabetes? presenting with abdominal pain.? Patient's family is at bedside and assists with the history.? States that he has a history of a bowel obstruction about 15 years ago.? He was unable to have a bowel movement for approximately 2 weeks and then he had 1 several days ago.? States that he continues to have bloating of the abdomen and continues to complain of abdominal pain.? He has not had a bowel movement for the last 3-4 days.? He has complained of some nausea but no vomiting.? Patient is A&O x1 which is baseline for him. Significant findings: 1. Large amount of stool throughout the colon consistent with provided history of constipation with se
[2023-09-11 16:18] LABS: Glucose Point of Care 139 mg/dl (65-105)
--- NOTE | 2023-09-11 16:26 | WPDPN ---
Progress Note: A&P Assessment and Plan (1) Stercoral colitis: Code(s): K52.89 - Other specified noninfective gastroenteritis and colitis Status: Acute Assessment and Plan: Patient is not having bowel movements after getting and fleets enemas. Tissue clean out all the hard stool in his colon least the majority of the. Continue antibiotics for colitis for a full treatment dose of 7 to 10 days. He can be converted oral antibiotics for is obvious concern. Discharge at the discretion of the primary service. (2) Constipation: Code(s): K59.00 - Constipation, unspecified Status: Acute Assessment and Plan: Patient should be kept on a regimen MiraLax or stool softeners to prevent further episodes of constipation or obstipation. Subjective Date/time seen: 09/11/23 16:26 Interval history: Patient is doing much better now. With administration of GoLYTELY and Fleet enemas he was started had multiple large bowel movements. He is no longer complaining abdominal pain and abdominal distention has resolved. Exam GI: Other: Abdomen is soft and nondistended. Is nontender. Exam is benign. Objective Data Vital Signs Vital Signs: Vital Signs - 24 hr 09/10/23 20:00 09/10/23 23:10 09/11/23 04:45 Temperature 36.4 C L 36.2 C L Pulse Rate 69 66 Respiratory Rate 20 18 Blood Pressure 121/49 L 126/57 L Pulse Oximetry 98 100 100 Oxygen Delivery Room Air 09/11/23 09:00 09/11/23 14:00 Temperature 36.6 C Pulse Rate 62 Respiratory Rate 18 Blood Pressure 104/40 L Pulse Oximetry 100 Oxygen Delivery Room Air Intake/Output Intake/Output: Intake & Output 09/08/23 09/09/23 09/10/23 09/11/23 23:59 23:59 23:59 23:59 Intake Total 434 708 5744 1680 Output Total 950 700 750 350 Balance -817 439 6081 1330 Meds/Results Medications: Active Medications Generic Name Dose Route Start Last Admin Trade Name Freq PRN Reason Stop Dose Admin Acetaminophen 650 mg 09/09/23 22:25 Acetaminophen 325 Mg Tablet PO Q6H PRN Mild Pain (1-3) or Fever Dextrose 12.5 gm 09/09/23 16:44 Dextrose 50% 25 Gm/50 Ml Syringe IV PUSH PRN PRN Hypoglycemia Protocol Finasteride 5 mg 09/09/23 09:00 09/11/23 09:00 Finasteride 5 Mg Tablet PO 5 mg DAILY JAIDEN Administration Glucagon 1 mg 09/09/23 16:44 Glucagon For Inj 1 Mg Vial IM PRN PRN Hypoglycemia Protocol Glucose 15 gm 09/09/23 16:44 Glucose Oral Gel 15 Gm Of Glucse In 37.5 Gm Tube PO PRN PRN Hypoglycemia Protocol Sodium Chloride 1,000 mls @ 100 mls/hr 09/09/23 16:40 09/11/23 03:33 Normal Saline Iv IV CONT 09/12/23 23:30 100 mls/hr .Q10H JAIDEN Administration Dextrose 1,000 mls @ 100 mls/hr 09/09/23 16:44 Dextrose 5% 1,000 Ml IVPB PRN PRN Hypoglycemia Protocol Insulin Aspart 3 - 6 units 09/09/23 17:00 09/11/23 12:16 Insulin Aspart (*Bkc) 100 Units/Ml SUB-Q Not Given [facility] Protocol Insulin Glargine 9 units 09/09/23 21:00 09/10/23 20:14 Insulin Glargine (*Bkc) 100 Units/Ml 0.15 units/kg (9 units) 9 units SUB-Q Administration [facility] Losartan Potassium 100 mg 09/09/23 09:00 09/11/23 09:00 Losartan Potassium 100 Mg Tablet PO 100 mg DAILY JAIDEN Administration Polyethylene Glycol 17 gm 09/09/23 09:00 09/11/23 09:00 Polyethylene Glycol 3350 17 Gm Powd.Pack PO 17 gm BID JAIDEN Administration Sertraline HCl 25 mg 09/09/23 09:00 09/11/23 09:00 Sertraline Hcl 25 Mg Tablet PO 25 mg DAILY JAIDEN Administration Tamsulosin HCl 0.4 mg 09/09/23 21:00 09/10/23 20:13 Tamsulosin Hcl 0.4 Mg Capsule PO 0.4 mg HS JAIDEN Administration Radiology Results: ITS Impressions Abdomen/Pelvis CT 09/08/23 16:09 IMPRESSION: 1. Large amount of stool throughout the colon consistent with provided history of constipation with secondary stercoral colitis at the rectum. 2. Cholelithiasis.
--- NOTE | 2023-09-11 19:03 | PC.NURSE ---
Pt discharged back to facility via family car. Pt compliant with care. Pt IV was removed tip intact. Pt denied any pain. Pt family at the bedside today. Family was educated on discharge instructions and to follow up with Dr. Mcmanus regarding spot on pancreas found on CT scan. Pt was monitored for any changes in status while here.
== END 2023-09-11 17:10 | DRG 392 ==
LOC: ANHED 15:02 → ANH3MEDSUR 22:57
PROVIDERS: Emergency Medicine; Admitting Provider Internal Medicine; Emergency Provider Emergency Medicine; PCP Internal Medicine; Visit Provider Internal Medicine
DX: K59.00 Constipation, unspecified (principal); K86.2 Cyst of pancreas; K52.89 Other specified noninfective gastroenteritis and colitis; I10 Essential (primary) hypertension; E87.6 Hypokalemia; E78.5 Hyperlipidemia, unspecified; E11.9 Type 2 diabetes mellitus without complications; D64.9 Anemia, unspecified; N40.1 Benign prostatic hyperplasia with lower urinary tract symptoms; R33.8 Other retention of urine; F03.90 Unspecified dementia, unspecified severity, without behavioral disturbance, psychotic disturbance, mood disturbance, and anxiety; F41.9 Anxiety disorder, unspecified; Z95.0 Presence of cardiac pacemaker
CPT/HCPCS: 36415; 74177; 80048; 80053; 81001; 82948; 83690; 85025; 85027; 87086; 96365; 99285; A9270; G0378; J0696; J1815; J7030; Q9967

== ENCOUNTER 2023-10-27 11:14 | Emergency (ER) | payer MEDICARE, SELFPAY ==
[2023-10-27] VITALS (8 sets, daily range): BP systolic 107–152; BP diastolic 51–62; PULSE 60–63; RESP 12–18; TEMP 36.8; O2SAT 98–100
--- NOTE | ~2023-10-27 | CT_ITS ---
EXAMINATION: CT abdomen pelvis w con DATE: 10/27/2023 12:47 INDICATION: Abdominal pain TECHNIQUE: Computed tomography (CT) of the abdomen and pelvis was performed with 100 mL Omnipaque-350 intravenous contrast. Automated exposure control and iterative reconstruction technique were employe d. The dose-length product was 695.04 mGy-cm. COMPARISON: None FINDINGS: Calcified left lower lobe nodule consistent with old granulomatous disease. No significant interval c hange in several 6 mm or smaller noncalcified granulomata in the bilateral lungs, right greater than left, which are without evident FDG uptake on prior PET/CT. Heart size is normal. Atherosclerotic cor onary artery calcifications. Dual-lead cardiac pacemaker with lead tips at the right atrial appendage and along the anterior wall of the right ventricle. No pericardial or pleural effusion. Cholelithias is. Liver, spleen, right kidney and bilateral adrenal glands are normal. 3.2 cm left renal cyst. Mild to moderate fatty atrophy of the pancreas greatest at the pancreatic neck and body. No significant c hange in a 1.2 cm cystic lesion at the uncinate process of the pancreas. Large amount of stool scatte red throughout the colon consistent with provided history of constipation. Small bowel and appendix a re normal. There is a 6 mm enhancing nodule along the anterior nondependent wall of the bladder. Pros tatic calcifications. No free intraperitoneal gas or fluid. No pathologically enlarged abdominal or p elvic lymphadenopathy. Severe thoracic and lumbar spondylosis. Chronic T12 compression fracture with 20% anterior vertebral body height loss. IMPRESSION: 1. No acute intra-abdominal/pelvic process. 2. Indeterminate 6 mm enhancing nodule along the anterior wall of the bladder which is concerning for bladder cancer. Consider cystoscopy for further evaluation. 3. Cholelithiasis. 4. No interval change in a 1.2 cm cystic lesion at the uncinate process of the pancreas which given s ize and patient age and likely requires no further follow-up. Reviewed, dictated and finalized at location A. IMPRESSION: 1. No acute intra-abdominal/pelvic process. 2. Indeterminate 6 mm enhancing nodule along the anterior wall of the bladder w hich is concerning for bladder cancer. Consider cystoscopy for further evaluati on. 3. Cholelithiasis. 4. No interval change in a 1.2 cm cystic lesion at the uncinate process of the pancreas which given size and patient age and likely requires no further follow -up.
--- NOTE | ~2023-10-27 | XR_ITS ---
EXAMINATION: XR knee RT 3V DATE: 10/27/2023 12:51 INDICATION: Right knee pain. TECHNIQUE: 3 views of right knee were obtained. COMPARISON: Right knee radiographs 12/07/2020 FINDINGS: Bone alignment is normal. No fracture. There is mild tricompartmental osteoarthritis. No kn ee joint effusion. IMPRESSION: 1. Mild right knee osteoarthritis. Reviewed, dictated and finalized at location E.
[2023-10-27 12:18] LABS: Basophils Absolute Auto 0.1 K/mm3 (0.0-0.1); Basophils Percent Auto 1.2 % (0.2-1.2); Eosinophils Absolute Auto 0.1 K/mm3 (0-0.3); Eosinophils Percent Auto 1.4 % (0-4.4); Immature Granulocyte Absolute 0.01 K/mm3 (0.00-0.031); Immature Granulocyte Percent A 0.1 % (0-0.5); Lymphocytes Absolute Auto 0.92 K/mm3 (0.9-3.2); Lymphocytes Percent Auto 12.7 % (18.3-44.2); Mean Corpuscular Hemoglobin 24.1 pg (26-34); Mean Corpuscular Volume 80.4 fl (80-100); Mean Platelet Volume 11.2 fl (7.4-10.4); Monocytes Absolute Auto 0.6 K/mm3 (0.1-0.6); Monocytes Percent Auto 8.7 % (2.6-8.5); Neutrophils Absolute Auto 5.5 K/mm3 (1.3-6.7); Neutrophils Percent Auto 75.9 % (45.5-73.1); Platelet Count Result 230 k/mm3 (150-375); Red Blood Count 3.73 M/mm3 (4.6-6.20); Red Cell Distribution Width 17.9 % (11.5-14.5); White Blood Count 7.3 K/mm3 (4.5-10.0)
[2023-10-27 12:28] LABS: Alanine Aminotransferase 10 U/L (6-50); Albumin Level 3.6 g/dL (3.5-5.1); Alkaline Phosphatase 83 U/L (38-126); Anion Gap 3 mmol/L (4-12); Aspartate Amino Transferase 18 U/L (17-59); Bilirubin,Total 0.5 mg/dL (0.2-1.3); Blood Urea Nitrogen 23 mg/dL (9-20); Calcium 9.1 mg/dL (8.4-10.2); Carbon Dioxide 26 mmol/L (22-30); Chloride 110 mmol/L (98-107); Estimated Glomerular Filt Rate > 60; Glucose 145 mg/dL (65-110); Lipase 24 U/L (23-300); Potassium 3.7 mmol/L (3.4-5.0); Sodium 139 mmol/L (137-145)
--- NOTE | 2023-10-27 12:28 | ED.ABDPAIN ---
HPI - Abdominal Pain General Chief Complaint: Abdominal Pain Stated Complaint: Abd pain Time Seen by Provider: 10/27/23 11:56 History of Present Illness HPI narrative: 78-year-old male presenting to the emergency department for evaluation abdominal pain and potential knee pain. Patient does have prior history of bladder mass, dementia and constipation. Patient had a urine sample sent off few weeks ago that to the primary care physician and this was initially read as negative. Family believes that this has since come back as positive. Today the patient began complaining of right knee pain and some abdominal pain. Patient was sedate during the examination due to medications received during transportation. Related Data Home Medications Medication Instructions Recorded Confirmed atorvastatin 10 mg tablet 10 mg PO DAILY 12/01/19 09/08/23 losartan 100 mg tablet 100 mg PO DAILY 12/01/19 09/08/23 finasteride 5 mg tablet 5 mg PO DAILY 07/19/23 09/08/23 metformin 500 mg tablet 1,000 mg PO BID 07/19/23 09/08/23 sertraline 25 mg tablet 25 mg PO DAILY 07/19/23 09/08/23 tamsulosin 0.4 mg capsule 0.4 mg PO HS 07/19/23 09/08/23 Allergies Allergy/AdvReac Type Severity Reaction Status Date / Time No Known Allergies Allergy Unknown Verified 09/08/23 23:33 Review of Systems Review of Systems: All systems reviewed & are unremarkable except as noted in HPI and below PMFSH Past Medical History Medical History BPH (benign prostatic hyperplasia) Bradycardia Dementia Essential hypertension Type 2 diabetes mellitus Surgical History Surgical History History of permanent cardiac pacemaker placement History of repair of rotator cuff Family History Family History Mother Diabetes mellitus Sibling Cerebrovascular accident Sibling Cancer Social History Social History Social History: Surrogate medical decision makers: Leann Torres (spouse), Alexandre Torres (son), and Claudia Tello (daughter). Code status: Do not resuscitate. Smoking status: Never smoker Alcohol intake: never Substance use: never Substance use type: does not use Additional living arrangements comments: [facility]. Additional occupation/education comments: Retired from [employer]. Spiritual care concerns: No Exam Narrative: APPEARANCE: Somnolent HEAD: normocephalic, atraumatic. EYES: PERRLA/EOMI, conjunctivae clear. NOSE: Normal no drainage EARS:TMS clear with good light reflex. THROAT: Pharynx clear, no exudate. NECK: Supple. No adenopathy, no masses. RESPIRATORY: Airway patent, respirations nonlabored. Clear to auscultation bilaterally, no rales, rhonchi, wheezing. CARDIOVASCULAR: Regular rate and rhythm without murmurs rubs or gallops. ABDOMINAL: Soft, nontender, nondistended, normal bowel sounds MUSCULOSKELETAL: Moves all extremities. Strength/ROM intact, No edema, No calf tenderness. NEURO: Alert. Cranial nerves II through XII intact. Good gait. Good coordination SKIN: Warm, dry. Normal Color PSYCHIATRIC: Normal affect/mood. Course Course Emergency Course: patient was discharged back to his care facility. Vital Signs Vital signs: Vital Signs Temperature 98.2 F 10/27/23 11:15 Pulse Rate 63 10/27/23 11:15 Respiratory Rate 12 10/27/23 11:15 Blood Pressure 141/59 H 10/27/23 11:15 Pulse Oximetry 100 10/27/23 11:15 Oxygen Delivery Room Air 10/27/23 11:15 Temperature 98.2 F 10/27/23 11:15 Pulse Rate 60 10/27/23 15:45 Respiratory Rate 14 10/27/23 15:45 Blood Pressure 142/62 H 10/27/23 15:45 Pulse Oximetry 100 10/27/23 15:45 Oxygen Delivery Room Air 10/27/23 11:15 MDM - Abdominal Pain MDM Narrative Medical decision making narrative: 78-year-old m
[2023-10-27 12:45] LABS: Bacteria Urine 3+ /hpf; Non Pathogenic Casts 0-2; Squamous Epithelial Cell Urine None Seen /hpf (Few); WBC Urine 0-5 /hpf (0-3)
[2023-10-27 13:00] LABS: Appearance Urine Clear (Clear); Bilirubin Urine Negative (Negative); Blood Urine 2+ (Negative); Color Urine Yellow (Yellow); Glucose Urine UA 2+ mg/dL (Negative); Ketones Urine Trace mg/dL (Negative); Leukocyte Esterase Ur Negative LEU/UL (Negative); Nitrate Urine Negative (Negative); Protein Urine Trace mg/dL (Negative); Specific Grav Ur 1.025 (1.001-1.035); Urobilinogen Urine 0.2 mg/dL (<2.0); pH Urine 5.5 (5.0-9.0)
[2023-10-27 13:01] LABS: Add Urine Microscopic? YES
== END 2023-10-27 15:55 ==
PROVIDERS: Physician Assistant; Emergency Provider Emergency Medicine; PCP Internal Medicine
DX: R10.9 Unspecified abdominal pain (principal); M25.561 Pain in right knee; R82.998 Other abnormal findings in urine; I10 Essential (primary) hypertension; F03.90 Unspecified dementia, unspecified severity, without behavioral disturbance, psychotic disturbance, mood disturbance, and anxiety; E11.9 Type 2 diabetes mellitus without complications; N40.0 Benign prostatic hyperplasia without lower urinary tract symptoms; Z79.84 Long term (current) use of oral hypoglycemic drugs
CPT/HCPCS: 36415; 73562; 74177; 80053; 81001; 83690; 85025; 99284; Q9967

== ENCOUNTER 2024-03-25 12:27 | Inpatient (IN) | payer MEDICARE, SELFPAY ==
[2024-03-25] VITALS (12 sets, daily range): BP systolic 119–141; BP diastolic 56–70; PULSE 62–83; RESP 15–20; TEMP 36.6–37.1; O2SAT 91–99; BMI 20.9
--- NOTE | ~2024-03-25 | CT_ITS ---
EXAMINATION: CTA chest PE abdomen pel DATE: 03/28/2024 17:14 INDICATION: Shortness of breath. Abdominal pain. TECHNIQUE: Computed tomography angiography (CTA) of the chest was performed with 100 mL Omnipaque-350 intravenous contrast timed to evaluate the pulmonary arteries. Coronal maximum intensity projection 3D-reconstructions were created by the technologist. Computed tomography (CT) of the abdomen and pelv is was performed with intravenous contrast. Automated exposure control and iterative reconstruction t echnique were employed. The dose-length product was 1410.05 mGy-cm. COMPARISON: CT abdomen pelvis 10/27/2023 FINDINGS: CTA chest: There are patchy airspace and groundglass opacity in the lungs involving all lobes. There are dependent airspace opacities in the lower lobes. There are moderate-sized pleural effusions. The heart size is normal. There are coronary artery calcifications. There is a small pericardial effusion . There is a left chest wall pacer with leads in the right atrium and right ventricle. There is no pu lmonary embolus. There are bridging endplate osteophytes at multiple levels in the spine, consistent with diffuse idiopathic skeletal hyperostosis (DISH). There is moderately severe wedging of multiple vertebral bodies. CT abdomen and pelvis: The liver is normal. There are gallstones in the gallbladder, which is normal in size. There is a stable 10 mm cyst in the pancreas, likely benign. The spleen and adrenal glands a re normal. There is cortical thinning of the kidneys. There is a 2.9 cm cyst in left kidney. The blad kathy is distended. The prostate is mildly enlarged. No dilated loops of bowel. The appendix is normal. There are no pathologically enlarged lymph nodes. There is no ascites. There are widespread arterial calcifications. There is severe lumbar spondylosis. IMPRESSION: 1. Multifocal lung disease, likely pneumonia. 2. Moderate-sized pleural effusions. 3. Small pericardial effusion. 4. No pulmonary embolus. Reviewed, dictated and finalized at location A.
--- NOTE | ~2024-03-25 | XR_ITS ---
XR chest 2V 03/25/2024 13:33 Indication: Cough and low oxygen saturations. Procedure: 2 view chest Comparison: Comparison to multiple prior studies sequentially, with oldest reviewed study dated 04/2018. Findings: Patchy bilateral airspace disease, compatible with pneumonia. Stable cardiomediastinal silh ouette. Pacemaker leads are stable. Possible small effusion. No pneumothorax. Impression: 1: Patchy bilateral airspace disease, compatible with pneumonia. Reviewed, dictated and finalized at location B. Impression: 1: Patchy bilateral airspace disease, compatible with pneumonia.
--- NOTE | ~2024-03-25 | XR_ITS ---
EXAMINATION: XR barium swallow modified DATE: 03/26/2024 10:49 INDICATION: Aspiration. TECHNIQUE: The patient was given barium-containing material of multiple consistencies to swallow by t shante speech pathologist while I performed fluoroscopy. Fluoroscopy exposure time was 3.5 minutes. The n umber of fluoroscopy images saved to the PACS was 1. Dose-area product was 3.04 Gy-cm^2. FINDINGS: There is reduced laryngeal elevation, vallecular residue, pyriform sinus residue, and pharyngeal wall residue. There is laryngeal penetration with thin liquids. IMPRESSION: 1. Laryngeal penetration with thin liquids. 2. Please refer to the speech therapy report for recommendations. Reviewed, dictated and finalized at location A.
--- NOTE | 2024-03-25 12:39 | ECG_ITS ---
Test Date: 2024-03-25 12:42:13 Measurements Intervals [place] Rate: 88 P: 43 WV: 199 QRS: -10 QRSD: 184 T: 124 QT: 438 QTc: 533 Interpretive Statements ELECTRONIC VENTRICULAR PACEMAKER WITH ATRIAL SENSING AND VENTRICULAR PACING ABNORMAL RHYTHM ECG No previous ECG available for comparison Electronically Signed On 03-25-2024 12:59:16 CDT by Koko Cavazos M.D.
[2024-03-25 13:04] LABS: Basophils Absolute Auto 0.1 K/mm3 (0.0-0.1); Basophils Percent Auto 0.4 % (0.2-1.2); Eosinophils Absolute Auto 0.1 K/mm3 (0-0.3); Eosinophils Percent Auto 0.8 % (0-4.4); Hematocrit 29.3 % (42.0-52.0); Hemoglobin 9.1 g/dL (14.0-18.0); Immature Granulocyte Absolute 0.07 K/mm3 (0.00-0.031); Immature Granulocyte Percent A 0.6 % (0-0.5); Lymphocytes Absolute Auto 1.31 K/mm3 (0.9-3.2); Lymphocytes Percent Auto 11.5 % (18.3-44.2); Mean Corpuscular HGB Conc 31.1 g/dl (32-36); Mean Corpuscular Hemoglobin 24.7 pg (26-34); Mean Corpuscular Volume 79.6 fl (80-100); Monocytes Absolute Auto 1.4 K/mm3 (0.1-0.6); Monocytes Percent Auto 12.6 % (2.6-8.5); Neutrophils Absolute Auto 8.5 K/mm3 (1.3-6.7); Neutrophils Percent Auto 74.1 % (45.5-73.1); Platelet Count Result 258 k/mm3 (150-375); Red Blood Count 3.68 M/mm3 (4.6-6.20); White Blood Count 11.4 K/mm3 (4.5-10.0)
[2024-03-25 13:15] LABS: Alanine Aminotransferase 22 U/L (6-50); Albumin Level 3.6 g/dL (3.5-5.1); Alkaline Phosphatase 116 U/L (38-126); Anion Gap 12 mmol/L (4-12); Aspartate Amino Transferase 30 U/L (17-59); Bilirubin,Total 0.6 mg/dL (0.2-1.3); Blood Urea Nitrogen 36 mg/dL (9-20); Calcium 8.8 mg/dL (8.4-10.2); Carbon Dioxide 24 mmol/L (22-30); Chloride 106 mmol/L (98-107); Estimated CRCL calculation 73 ml/min; Estimated Glomerular Filt Rate > 60; Glucose 347 mg/dL (65-110); Potassium 3.9 mmol/L (3.4-5.0); Sodium 142 mmol/L (137-145)
[2024-03-25 13:47] LABS: Influenza A QL RT-PCR Negative (Negative); Influenza B QL RT-PCR Negative (Negative); RSV RNA, RT-PCR Negative (Negative); SARS-CoV-2 RNA PCR Positive (Negative)
--- NOTE | 2024-03-25 14:07 | ED.SOB ---
HPI - SOB/Dyspnea General Chief Complaint: Shortness of Breath/Dyspnea Stated Complaint: lethargic Time Seen by Provider: 03/25/24 13:35 History of Present Illness HPI Narrative: Patient is a 78-year-old male with history of dementia who presents to the ER with hypoxia and cough. Patient was diagnosed with COVID-19 2 weeks ago. He developed hypoxia today. reports he has developed a cough last couple of days. He has had no complaints of chest pain. He has a known sacral decubitus ulcer that they have been attending to. Patient unable to provide any history. Related Data Home Medications Medication Instructions Recorded Confirmed atorvastatin 10 mg tablet 10 mg PO DAILY 12/01/19 03/25/24 losartan 100 mg tablet 100 mg PO DAILY 12/01/19 03/25/24 finasteride 5 mg tablet 5 mg PO DAILY 07/19/23 03/25/24 metformin 500 mg tablet 1,000 mg PO BID 07/19/23 03/25/24 sertraline 25 mg tablet 25 mg PO DAILY 07/19/23 03/25/24 tamsulosin 0.4 mg capsule 0.4 mg PO HS 07/19/23 03/25/24 quetiapine 100 mg tablet 100 mg PO DAILY 03/25/24 03/25/24 risperidone 1 mg tablet 1 mg PO DAILY 03/25/24 03/25/24 Allergies Allergy/AdvReac Type Severity Reaction Status Date / Time No Known Allergies Allergy Unknown Verified 09/08/23 23:33 Review of Systems Review of Systems: ROS unobtainable: Yes unobtainable due to mental status PMFSH Past Medical History Medical History Anemia BPH (benign prostatic hyperplasia) Bradycardia Dementia Essential hypertension Insomnia Type 2 diabetes mellitus Surgical History Surgical History History of permanent cardiac pacemaker placement History of repair of rotator cuff Family History Family History Mother Diabetes mellitus Sibling Cerebrovascular accident Sibling Cancer Social History Social History Social History: Surrogate medical decision makers: Leann Torres (spouse), Alexandre Torres (son), and Claudia Tello (daughter). Code status: Do not resuscitate. Smoking status: Never smoker Alcohol intake: never Substance use: never Substance use type: does not use Additional living arrangements comments: [facility]. Additional occupation/education comments: Retired from [employer]. Spiritual care concerns: No Exam Narrative: GENERAL: Chronically ill-appearing, well-nourished, and in no acute distress. HEAD: Normocephalic, atraumatic. ENT: Mucous membranes moist. NECK: Supple. CHEST: bibasilar crackles. No respiratory distress. HEART: Regular rate and rhythm. Normal peripheral pulses. ABDOMEN: Soft, nontender, nondistended. EXTREMITIES: Normal range of motion. No edema. SKIN: Warm, dry, no rash. NEURO: Alert and oriented x3. PSYCH: Normal mood and affect. Course Vital Signs Vital signs: Vital Signs Temperature 98.7 F 03/25/24 12:45 Pulse Rate 83 03/25/24 12:45 Respiratory Rate 20 03/25/24 12:45 Blood Pressure 141/70 H 03/25/24 12:45 Pulse Oximetry 91 03/25/24 12:45 Oxygen Delivery Room Air 03/25/24 12:45 Temperature 97.9 F 03/25/24 21:20 Pulse Rate 79 03/25/24 21:20 Respiratory Rate 20 03/25/24 21:20 Blood Pressure 134/60 03/25/24 21:20 Pulse Oximetry 94 03/25/24 21:20 Oxygen Delivery Nasal Cannula 03/25/24 17:00 Oxygen Flow Rate 2 03/25/24 17:00 MDM - SOB/Dyspnea MDM Narrative Medical decision making narrative: patient resting comfortably. History obtained from spouse. Patient with pneumonia and he has been given azithromycin ceftriaxone for antibiotic coverage. He is on supplemental O2. He will be admitted to the hospitalist service. Patient also received IV fluid on the ER. I blood cell count elevated at 11,000 thousand, CRP elevated at 23. Patient is COVID pos
[2024-03-25] MEDS: AZITHROMYCIN 500 MG/NS 250 ML 500 MG/250 ML BAG 250 MG IVPB (15:04)
[2024-03-25 15:20] LABS: INR 1.2; Prothrombin Time 15.9 Seconds (11.1-14.7)
[2024-03-25 15:21] LABS: Partial Thromboplastin Time 41.1 Seconds (22.3-36.8)
[2024-03-25 15:27] LABS: Lactic Acid Reflex 1.5 mmol/L (0.7-2.0)
--- NOTE | 2024-03-25 15:57 | PM.IMHP ---
H&P: HPI History of Present Illness Date/Time: 03/25/24 15:57 Chief Complaint: Shortness of Breath, Hypoxia Narrative: 78 y/o M presents here with shortness of breath and hypoxia with PMH of BPH, bradycardia, dementia, hypertension, and diabetes. The patient presents here from [facility] for further evaluation of shortness of breath and hypoxia. Patient had recent COVID infection and was diagnosed with this approximately 2 weeks ago (estimated to be on 03/14). reports she has seen him daily for the last week. She noted chest congestion on 03/21, patient continued to look more ill over the last few days, and she alerted staff at the facility but they were comfortable monitoring the patient. Today when she came to see him and noticed he was still declining. When the patient refused to eat (normally has great appetite) she requested the [place] call EMS due to concern for pneumonia. Upon EMS arrival patient's O2 sat was in the 80s on room air. Patient received a nebulizer and Solu-Medrol in route to the ED and arrived 91% on RA. Now requiring supplemental O2 - 2L NC. Per , she noted that he developed cough over the last few days. Patient has history of dementia, therefore contribution to HPI is limited, typically A/Ox0, occasionally will know his name and will occasionally recognizes family but not often. Initial VS at presentation: 98.7? F, HR 83, RR 20, 141/70, and 91% on RA. Now 94% on 2L NC. ED workup showed: 30 BC 11.4, hemoglobin 9.1 (at baseline), INR 1.2, creatinine 0.6 and GFR >60, initial glucose 347, lactic 1.5, and viral PCR is continuing to test positive for COVID. CXR showed patchy bilateral airspace disease compatible with pneumonia. Review of Systems Review of Systems: ROS unobtainable: Yes unobtainable due to medical condition (Limited) [facility] Past Medical History Medical History Anemia BPH (benign prostatic hyperplasia) Bradycardia Dementia Essential hypertension Insomnia Type 2 diabetes mellitus Surgical History Surgical History History of permanent cardiac pacemaker placement History of repair of rotator cuff Family History Family History Mother Diabetes mellitus Sibling Cerebrovascular accident Sibling Cancer Social History Social History Social History: Surrogate medical decision makers: Leann Torres (spouse), Alexandre Torres (son), and Claudia Tello (daughter). Code status: Do not resuscitate. Smoking status: Never smoker Alcohol intake: never Substance use: never Substance use type: does not use Additional living arrangements comments: [facility]. Additional occupation/education comments: Retired from [employer]. Spiritual care concerns: No Meds Home Medications and Allergies Home Medications Medication Instructions Recorded Confirmed Type atorvastatin 10 mg tablet 10 mg PO DAILY 12/01/19 03/25/24 History losartan 100 mg tablet 100 mg PO DAILY 12/01/19 03/25/24 History finasteride 5 mg tablet 5 mg PO DAILY 07/19/23 03/25/24 History metformin 500 mg tablet 1,000 mg PO BID 07/19/23 03/25/24 History sertraline 25 mg tablet 25 mg PO DAILY 07/19/23 03/25/24 History tamsulosin 0.4 mg capsule 0.4 mg PO HS 07/19/23 03/25/24 History polyethylene glycol 3350 17 gram 17 g PO BID #30 ea 07/24/23 03/25/24 Rx oral powder packet (Miralax) quetiapine 100 mg tablet 100 mg PO DAILY 03/25/24 03/25/24 History risperidone 1 mg tablet 1 mg PO DAILY 03/25/24 03/25/24 History Allergies Allergy/AdvReac Type Severity Reaction Status Date / Time No Known Allergies Allergy Unknown Verified 09/08/23 23:33 Vital Signs Vital Signs - 24 hr 03/25/24 12:45 03/25/24 12:49 Temperature 98.7 F Pulse Rate 83 Respiratory Rate 20 Blood Pressur
[2024-03-25 16:54] LABS: CRP 23.8 mg/dL (<1.0)
[2024-03-25 17:45] LABS: Glucose Point of Care 336 mg/dl (65-105)
[2024-03-25] MEDS: INSULIN ASPART (*BKC) 100 UNITS/ML SUB-Q (17:49)
[2024-03-25 19:01] LABS: MRSA (PCR) NOT DETECTED (NOT DETECTE)
--- NOTE | 2024-03-25 19:51 | PC.NURSE ---
Reached out to [facility] to obtain test results of patients positive covid test 2 weeks ago. Staff member, Kim, will be faxing results to the floor once she gets them.
[2024-03-25] MEDS: IPRATROPIUM 0.5 MG/ALBUTEROL SULFATE 2.5 MG AMPUL.NEB 3 ML INHALATION (20:50)
[2024-03-25 21:02] LABS: Glucose Point of Care 320 mg/dl (65-105)
[2024-03-26] VITALS (14 sets, daily range): BP systolic 101–140; BP diastolic 40–61; PULSE 55–88; RESP 16–20; TEMP 36.1–36.6; O2SAT 92–97
[2024-03-26] MEDS: IPRATROPIUM 0.5 MG/ALBUTEROL SULFATE 2.5 MG AMPUL.NEB 3 ML INHALATION ×4 (02:55→21:05)
[2024-03-26 05:36] LABS: Basophils Percent Auto 0.1 % (0.2-1.2); Hematocrit 28.3 % (42.0-52.0); Hemoglobin 8.5 g/dL (14.0-18.0); Immature Granulocyte Absolute 0.11 K/mm3 (0.00-0.031); Immature Granulocyte Percent A 1.1 % (0-0.5); Lymphocytes Absolute Auto 0.33 K/mm3 (0.9-3.2); Lymphocytes Percent Auto 3.4 % (18.3-44.2); Mean Corpuscular Hemoglobin 24.3 pg (26-34); Mean Corpuscular Volume 80.9 fl (80-100); Mean Platelet Volume 11.3 fl (7.4-10.4); Monocytes Absolute Auto 0.4 K/mm3 (0.1-0.6); Monocytes Percent Auto 3.9 % (2.6-8.5); Neutrophils Absolute Auto 8.9 K/mm3 (1.3-6.7); Neutrophils Percent Auto 91.5 % (45.5-73.1); Platelet Count Result 258 k/mm3 (150-375); Red Cell Distribution Width 18.1 % (11.5-14.5); White Blood Count 9.8 K/mm3 (4.5-10.0)
[2024-03-26 05:44] LABS: Hemoglobin A1C 10.2 % (<5.7)
[2024-03-26] MEDS: guaiFENesin 12 HR 600 MG TABCR PO (08:57)
[2024-03-26] MEDS: QUEtiapine FUMARATE 100 MG TABLET PO (08:57)
[2024-03-26] MEDS: ATORVASTATIN 10 MG TABLET PO (08:57)
[2024-03-26] MEDS: polyethylene glycoL 3350 17 GM POWD.PACK PO ×2 (08:57→17:30)
[2024-03-26] MEDS: SERTRALINE HCL 25 MG TABLET PO (08:57)
[2024-03-26] MEDS: LOSARTAN POTASSIUM 100 MG TABLET PO (08:57)
[2024-03-26] MEDS: FINASTERIDE 5 MG TABLET PO (08:57)
[2024-03-26 08:59] LABS: Glucose Point of Care 333 mg/dl (65-105)
[2024-03-26] MEDS: INSULIN ASPART (*BKC) 100 UNITS/ML SUB-Q ×5 (09:04→17:29)
[2024-03-26] MEDS: risperiDONE 1 MG TABLET PO (09:05)
--- NOTE | 2024-03-26 10:03 | PM.IMPN ---
Progress Note: A&P Assessment and Plan (1) Acute respiratory failure with hypoxia: Code(s): J96.01 - Acute respiratory failure with hypoxia Status: Acute Assessment and Plan: - no supplemental O2 requirement at baseline, currently requiring 2L NC - recent COVID infection, diagnosed 2 weeks ago, and continuing to test positive today. - CXR concerning for pneumonia - suspect new hypoxia related to pneumonia -patient was started on cap treatment with Rocephin and azithromycin (2) Pneumonia: Qualifiers: Pneumonia type: due to unspecified organism Laterality: bilateral Lung location: lower lobe of lung Qualified Code(s): J18.9 - Pneumonia, unspecified organism Code(s): J18.9 - Pneumonia, unspecified organism Status: Acute Assessment and Plan: - did not meet SIRS criteria, however lactic 1.5 and blood cultures drawn on 03/25. Follow. - CXR: patchy bilateral airspace disease, compatible with pneumonia. 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 Hold while inpatient -blood sugars are elevated secondary to infection. - correct regimen ordered - low dose TIDWM, 4 units t.i.d. with meals, 12 units Lantus nightly - A1C 8.2% on 07/19/2023, repeat A1c 10.2% (4) Essential hypertension: Code(s): I10 - Essential (primary) hypertension Status: Acute Assessment and Plan: - chronic, currently 133/66 - continue home medications: Losartan 100 mg daily - monitor (5) Urinary retention: Code(s): R33.9 - Retention of urine, unspecified Status: Acute Assessment and Plan: Patient is a able to stand and urinate and has not been able to use the urinal given his confusion. Bladder scan q.6 Intermittent straight catheterization as needed for residual greater than 500 mils May consider placement of a Celestin catheter if more than 3 straight cath as needed. This is to the discretion of the family. Patient is at a Celestin catheter in the past and has removed them causing trauma. Family would like to defer placement of the catheter for now. (6) Anemia: Qualifiers: Anemia type: iron deficiency Iron deficiency anemia type: chronic blood loss Qualified Code(s): D50.0 - Iron deficiency anemia secondary to blood loss (chronic) Code(s): D64.9 - Anemia, unspecified Status: Acute Assessment and Plan: Hemoglobin 8.5 g/dL. Hemoglobin tends to run anywhere from 8-10 grams/deciliter. Anemia panel ordered for nutritional deficiencies Trend CBC Transfuse for hemoglobin less than 7 Plan Diet: Diabetic DVT Prophylaxis: SCD, Lovenox Lines: Peripheral Code Status: DNR/DNI Subjective Date/time seen: 03/26/24 10:03 Interval history: 78 y/o M presents here with shortness of breath and hypoxia with PMH of BPH, bradycardia, dementia, hypertension, and diabetes. 03/26/24: Mr Torres is resting in bed having just returned from his speech evaluation. He is drowsy from receiving medication overnight for agitation. His family is at the bedside. They report that he was diagnosed with COVID approximately around
--- NOTE | 2024-03-26 11:31 | PCSTNOTE ---
Please refer to the Modified Barium Swallow Evaluation in the EMR.
[2024-03-26 11:36] LABS: Procalcitonin 0.2 ng/mL
[2024-03-26 12:18] LABS: Glucose Point of Care 292 mg/dl (65-105)
[2024-03-26] MEDS: INSULIN GLARGINE (*BKC) 100 UNITS/ML 12 UNITS SUB-Q (12:36)
[2024-03-26] MEDS: SODIUM CHLORIDE 0.9% IV 1,000 ML 100 ML IV CONT (12:43)
[2024-03-26] MEDS: ENOXAPARIN 40 MG/0.4 ML SYRINGE SUB-Q (12:43)
[2024-03-26 12:52] LABS: Iron 23 ug/dL (49-181)
[2024-03-26 13:01] LABS: Percent Iron Saturation 8 % (20-50)
[2024-03-26 14:05] LABS: Folic Acid 9.8 ng/mL (2.76->20)
[2024-03-26] MEDS: AZITHROMYCIN 500 MG/NS 250 ML 500 MG/250 ML BAG 250 MG IVPB (14:29)
[2024-03-26 17:22] LABS: Glucose Point of Care 309 mg/dl (65-105)
[2024-03-26 21:53] LABS: Glucose Point of Care 248 mg/dl (65-105)
[2024-03-27] VITALS (10 sets, daily range): BP systolic 122–140; BP diastolic 50–63; PULSE 57–70; RESP 16–20; TEMP 36.1–36.9; O2SAT 94–100
[2024-03-27] MEDS: IPRATROPIUM 0.5 MG/ALBUTEROL SULFATE 2.5 MG AMPUL.NEB 3 ML INHALATION ×4 (02:41→21:05)
[2024-03-27 05:28] LABS: Basophils Percent Auto 0.2 % (0.2-1.2); Hematocrit 27.2 % (42.0-52.0); Hemoglobin 8.2 g/dL (14.0-18.0); Immature Granulocyte Absolute 0.18 K/mm3 (0.00-0.031); Immature Granulocyte Percent A 1.6 % (0-0.5); Lymphocytes Absolute Auto 0.59 K/mm3 (0.9-3.2); Lymphocytes Percent Auto 5.2 % (18.3-44.2); Mean Corpuscular HGB Conc 30.1 g/dl (32-36); Mean Corpuscular Hemoglobin 24.1 pg (26-34); Mean Platelet Volume 11.1 fl (7.4-10.4); Neutrophils Absolute Auto 9.5 K/mm3 (1.3-6.7); Nucleated Red Blood Cells Perc 0.2 % (0.0-0.2); Platelet Count Result 253 k/mm3 (150-375); Red Cell Distribution Width 18.1 % (11.5-14.5); White Blood Count 11.3 K/mm3 (4.5-10.0)
[2024-03-27 05:54] LABS: Alanine Aminotransferase 49 U/L (6-50); Alkaline Phosphatase 132 U/L (38-126); Anion Gap 6 mmol/L (4-12); Aspartate Amino Transferase 54 U/L (17-59); Bilirubin,Total 0.2 mg/dL (0.2-1.3); Blood Urea Nitrogen 48 mg/dL (9-20); Calcium 8.4 mg/dL (8.4-10.2); Carbon Dioxide 25 mmol/L (22-30); Chloride 112 mmol/L (98-107); Estimated CRCL calculation 73 ml/min; Estimated Glomerular Filt Rate > 60; Glucose 224 mg/dL (65-110); Magnesium 2.5 mg/dL (1.6-2.3); Potassium 3.7 mmol/L (3.4-5.0); Sodium 143 mmol/L (137-145)
[2024-03-27] MEDS: SODIUM CHLORIDE 0.9% IV 1,000 ML 100 ML IV CONT ×3 (07:08→20:51)
[2024-03-27 08:01] LABS: Glucose Point of Care 193 mg/dl (65-105)
[2024-03-27] MEDS: ENOXAPARIN 40 MG/0.4 ML SYRINGE SUB-Q (09:11)
[2024-03-27] MEDS: ATORVASTATIN 10 MG TABLET PO (09:11)
[2024-03-27] MEDS: FINASTERIDE 5 MG TABLET PO (09:12)
[2024-03-27] MEDS: guaiFENesin 12 HR 600 MG TABCR PO ×2 (09:12→20:50)
[2024-03-27] MEDS: risperiDONE 1 MG TABLET PO (09:13)
[2024-03-27] MEDS: polyethylene glycoL 3350 17 GM POWD.PACK PO (09:13)
[2024-03-27] MEDS: LOSARTAN POTASSIUM 100 MG TABLET PO (09:13)
[2024-03-27] MEDS: QUEtiapine FUMARATE 100 MG TABLET PO (09:13)
[2024-03-27] MEDS: SERTRALINE HCL 25 MG TABLET PO (09:13)
[2024-03-27] MEDS: IRON SUCROSE COMPLEX 200 MG, IRON SUCROSE COMPLEX 100 MG in SODIUM CHLORIDE 0.9% IV 250 ML 176.67 MG IVPB (09:14)
[2024-03-27] MEDS: INSULIN GLARGINE (*BKC) 100 UNITS/ML 12 UNITS SUB-Q (10:04)
[2024-03-27] MEDS: INSULIN ASPART (*BKC) 100 UNITS/ML SUB-Q ×4 (10:06→17:46)
[2024-03-27] MEDS: AZITHROMYCIN 500 MG/NS 250 ML 500 MG/250 ML BAG 250 MG IVPB (11:05)
[2024-03-27 11:48] LABS: Add Urine Microscopic? YES; Appearance Urine Clear (Clear); Bacteria Urine 1+ /hpf; Bilirubin Urine Negative (Negative); Blood Urine Negative (Negative); Color Urine Yellow (Yellow); Glucose Urine UA 1+ mg/dL (Negative); Ketones Urine Trace mg/dL (Negative); Leukocyte Esterase Ur Trace LEU/UL (Negative); Nitrate Urine Negative (Negative); Non Pathogenic Casts 0-2; Protein Urine Trace mg/dL (Negative); Specific Grav Ur 1.027 (1.001-1.035); Squamous Epithelial Cell Urine None Seen /hpf (Few); WBC Urine 0-5 /hpf (0-3); pH Urine 5.5 (5.0-9.0)
[2024-03-27 11:50] LABS: Glucose Point of Care 228 mg/dl (65-105)
--- NOTE | 2024-03-27 11:54 | PCSTNOTE ---
FEED ELEVATOR WORKER attempted to see pt on 03/27 at 11:45. Family stated he was up late and would not arouse for FEED ELEVATOR WORKER. FEED ELEVATOR WORKER provided education to family regarding LE and BOT exercises if pt is willing to work with family.
[2024-03-27] MEDS: ACETAMINOPHEN 325 MG TABLET 650 MG PO ×2 (12:05→20:51)
--- NOTE | 2024-03-27 16:00 | PM.IMPN ---
Progress Note: A&P Assessment and Plan (1) Acute respiratory failure with hypoxia: Code(s): J96.01 - Acute respiratory failure with hypoxia Status: Acute Assessment and Plan: - no supplemental O2 requirement at baseline, currently requiring 2L NC - Oxygen has been weaned to room air - recent COVID infection, diagnosed 2 weeks ago, and continuing to test positive today. - CXR concerning for pneumonia - suspect new hypoxia related to pneumonia -patient was started on cap treatment with Rocephin and azithromycin. stopping Rocephin and changing to Unasyn as they are concerns for possible underlying UTI with Enterococcus in past cultures. (2) Pneumonia: Qualifiers: Pneumonia type: due to unspecified organism Laterality: bilateral Lung location: lower lobe of lung Qualified Code(s): J18.9 - Pneumonia, unspecified organism Code(s): J18.9 - Pneumonia, unspecified organism Status: Acute Assessment and Plan: - did not meet SIRS criteria, however lactic 1.5 and blood cultures drawn on 03/25. Follow. - CXR: patchy bilateral airspace disease, compatible with pneumonia. - risk factors: [place] resident - complicating factors: Recent COVID infection - started on CAP tx: ceftriaxone azithromycin on 03/25. Stop Rocephin add Unasyn. - MRSA PCR - Viral PCR: +COVID (previously tested positive 2 weeks ago), otherwise negative - sputum culture - supportive care: Mucinex, antipyretics, and nebs - new supplemental O2 requirement - NC - may consider systemic steroids - Speech performed modified barium swallow and there were concerns for aspiration. He was started on pureed in mildly thick liquids. (3) Type 2 diabetes mellitus: Qualifiers: Diabetes mellitus termite treater insulin use: with termite treater use Diabetes mellitus complication status: without complication Qualified Code(s): E11.9 - Type 2 diabetes mellitus without complications; Z79.4 - detention (current) use of insulin Code(s): E11.9 - Type 2 diabetes mellitus without complications Status: Acute Assessment and Plan: - hypoglycemia protocol - POC blood glucose ACHS - home medication: Metformin 1000 mg b.i.d.. Hold while inpatient -blood sugars are elevated secondary to infection. - correct regimen ordered - low dose TIDWM, 4 units t.i.d. with meals, 12 units Lantus nightly - A1C 8.2% on 07/19/2023, repeat A1c 10.2% (4) Essential hypertension: Code(s): I10 - Essential (primary) hypertension Status: Acute Assessment and Plan: - chronic, currently 133/66 - continue home medications: Losartan 100 mg daily - monitor (5) Urinary retention: Code(s): R33.9 - Retention of urine, unspecified Status: Acute Assessment and Plan: Patient is a able to stand and urinate and has not been able to use the urinal given his confusion. Bladder scan q.6 Intermittent straight catheterization as needed for residual greater than 500 mils May consider placement of a Celestin catheter if more than 3 straight cath as needed. This is to the discretion of the family. Patient is at a Celestin catheter in the past and has removed them causing trauma. Family would like to defer placement of the catheter for now. Leukocytosis persist despite antibiotic therapy. UA sent today mildly concerning for possible UTI. He did have bacteria, +1 leuks, and Altered mental status from baseline on arrival. Previous urine cultures have grown Enterococcus susceptible to ampicillin. Stopping Rocephin and transitioning to Unasyn for UTI and pneumonia coverage. (6) Anemia: Qualifiers: Anemia type: iron deficiency Iron deficiency anemia type: chronic blood loss Qualified Code(s): D50.0 - Iron deficiency anemia secondary to blood loss (chronic) Code(s): D64.9 - Anemia, unspecified Status: Acute Assessment and Plan: Hemoglobin 8.5 g/dL. Hemoglobin tends to run anywhere from 8-10
[2024-03-27 17:39] LABS: Glucose Point of Care 130 mg/dl (65-105)
[2024-03-27] MEDS: AMPICILLIN SULB 3 GM/NS 100 ML 3 GM/100 ML VIAL IVPB ×2 (17:44→23:51)
[2024-03-27] MEDS: TAMSULOSIN HCL 0.4 MG CAPSULE PO (20:50)
[2024-03-27 21:11] LABS: Glucose Point of Care 83 mg/dl (65-105)
[2024-03-28] VITALS (13 sets, daily range): BP systolic 126–129; BP diastolic 54–68; PULSE 61–119; RESP 17–24; TEMP 36.5–37.1; O2SAT 85–100
[2024-03-28 01:35] LABS: Glucose Point of Care 101 mg/dl (65-105)
[2024-03-28] MEDS: IPRATROPIUM 0.5 MG/ALBUTEROL SULFATE 2.5 MG AMPUL.NEB 3 ML INHALATION ×4 (02:45→20:27)
[2024-03-28] MEDS: SODIUM CHLORIDE 0.9% IV 1,000 ML 100 ML IV CONT (04:59)
[2024-03-28] MEDS: AMPICILLIN SULB 3 GM/NS 100 ML 3 GM/100 ML VIAL IVPB ×2 (05:59→13:03)
[2024-03-28 06:10] LABS: Basophils Absolute Auto 0.1 K/mm3 (0.0-0.1); Basophils Percent Auto 0.5 % (0.2-1.2); Eosinophils Absolute Auto 0.1 K/mm3 (0-0.3); Eosinophils Percent Auto 0.6 % (0-4.4); Hematocrit 28.9 % (42.0-52.0); Hemoglobin 8.4 g/dL (14.0-18.0); Immature Granulocyte Percent A 6.8 % (0-0.5); Lymphocytes Absolute Auto 0.87 K/mm3 (0.9-3.2); Lymphocytes Percent Auto 7.3 % (18.3-44.2); Mean Corpuscular HGB Conc 29.1 g/dl (32-36); Mean Corpuscular Hemoglobin 24.1 pg (26-34); Mean Corpuscular Volume 82.8 fl (80-100); Mean Platelet Volume 10.6 fl (7.4-10.4); Monocytes Absolute Auto 1.1 K/mm3 (0.1-0.6); Monocytes Percent Auto 9.2 % (2.6-8.5); Neutrophils Percent Auto 75.6 % (45.5-73.1); Nucleated Red Blood Cells Perc 0.4 % (0.0-0.2); Platelet Count Result 286 k/mm3 (150-375); Red Blood Count 3.49 M/mm3 (4.6-6.20); Red Cell Distribution Width 18.4 % (11.5-14.5); White Blood Count 11.9 K/mm3 (4.5-10.0)
[2024-03-28 06:33] LABS: Alanine Aminotransferase 61 U/L (6-50); Albumin Level 3.1 g/dL (3.5-5.1); Alkaline Phosphatase 105 U/L (38-126); Anion Gap 7 mmol/L (4-12); Aspartate Amino Transferase 59 U/L (17-59); Bilirubin,Total 0.3 mg/dL (0.2-1.3); Blood Urea Nitrogen 32 mg/dL (9-20); Calcium 8.2 mg/dL (8.4-10.2); Carbon Dioxide 26 mmol/L (22-30); Chloride 109 mmol/L (98-107); Estimated CRCL calculation 104 ml/min; Estimated Glomerular Filt Rate > 60; Glucose 78 mg/dL (65-110); Magnesium 2.4 mg/dL (1.6-2.3); Potassium 3.2 mmol/L (3.4-5.0); Sodium 142 mmol/L (137-145)
[2024-03-28 06:58] LABS: Anisocytosis 1+; Hypochromasia 1+; Ovalocytes 1+; Platelet Estimate Adequate (Adequate); Poikilocytosis 1+; Schistocytes None Seen; Target Cells 1+
--- NOTE | 2024-03-28 07:02 | PC.NURSE ---
bladder scan at 0600. Retention of urine >430
--- NOTE | 2024-03-28 07:03 | PC.NURSE ---
straight cath completed at 00:30. 475 cc of urine out
--- NOTE | 2024-03-28 07:34 | PM.IMPN ---
Progress Note: A&P Assessment and Plan (1) Acute respiratory failure with hypoxia: Code(s): J96.01 - Acute respiratory failure with hypoxia Status: Acute Assessment and Plan: - no supplemental O2 requirement at baseline - oxygen had been weaned but now requiring oxygen again - recent COVID infection, diagnosed 2 weeks ago, and continuing to test positive today - CXR concerning for pneumonia - suspect new hypoxia related to pneumonia - patient was started on cap treatment with Rocephin and azithromycin. Stopping Rocephin and changing to Unasyn as they are concerns for possible underlying UTI with Enterococcus in past cultures and can also cover for aspiration. - Case discussed with ID pharm. Can consider escalation to Zosyn. - CT of chest/abd/pelvis with contrast to rule out PE. Wells for PE with moderate risk. Patient recently had COVID which can increase risk of thrombus. (2) Pneumonia: Qualifiers: Laterality: bilateral Lung location: lower lobe of lung Pneumonia type: due to unspecified organism Qualified Code(s): J18.9 - Pneumonia, unspecified organism Code(s): J18.9 - Pneumonia, unspecified organism Status: Acute Assessment and Plan: - did not meet SIRS criteria, however lactic 1.5 and blood cultures drawn on 03/25. Follow. - CXR: patchy bilateral airspace disease, compatible with pneumonia. - risk factors: [place] resident - complicating factors: Recent COVID infection - started on CAP tx: ceftriaxone azithromycin on 03/25. Stop Rocephin add Unasyn. Consider escalation to Zosyn if he does not clinically improve - MRSA PCR - Viral PCR: +COVID (previously tested positive 2 weeks ago), otherwise negative - sputum culture - supportive care: Mucinex, antipyretics, and nebs - new supplemental O2 requirement - NC - Added Mucomyst nebulizer, increased mucinex dose, CPT TID as he is unable to participate with IS/pep - nasotracheal suctioning as needed - Speech performed modified barium swallow and there were concerns for aspiration. He was started on pureed in mildly thick liquids. - PT/OT ordered (3) Type 2 diabetes mellitus: Qualifiers: Diabetes mellitus complication status: without complication Diabetes mellitus long wall mining machine tender insulin use: with correction use Qualified Code(s): E11.9 - Type 2 diabetes mellitus without complications; Z79.4 - termination clerk (current) use of insulin Code(s): E11.9 - Type 2 diabetes mellitus without complications Status: Acute Assessment and Plan: - hypoglycemia protocol - POC blood glucose ACHS - home medication: Metformin 1000 mg b.i.d.. Hold while inpatient - Q 6 hour accu checks today while NPO - D5 NS at 100 ml per hour while NPO with low blood glucose - correct regimen ordered - low dose TIDWM, 4 units t.i.d. with meals, 12 units Lantus nightly - A1C 8.2% on 07/19/2023, repeat A1c 10.2% (4) Essential hypertension: Code(s): I10 - Essential (primary) hypertension Status: Acute Assessment and Plan: - chronic, currently 133/66 - hold home medications: Losartan 100 mg daily - monitor (5) Urinary retention: Code(s): R33.9 - Retention of urine, unspecified Status: Acute Assessment and Plan: Patient is a able to stand and urinate and has not been able to use the urinal given his confusion. Bladder scan q.6 Intermittent straight catheterization as needed for residual greater than 500 mils May consider placement of a Celestin catheter if more than 3 straight cath as needed. This is to the discretion of the family. Patient is at a Celestin catheter in the past and has removed them causing trauma. Family would like to defer placement of the catheter for now. Leukocytosis persist despite antibiotic therapy. UA sent today mildly concerning for possible UTI. He did have bacteria, +1 leuks, and Altered mental status from baseline on arrival. UA collected after antibiotics had be
[2024-03-28 08:25] LABS: Glucose Point of Care 72 mg/dl (65-105)
[2024-03-28] MEDS: ENOXAPARIN 40 MG/0.4 ML SYRINGE SUB-Q (08:28)
[2024-03-28] MEDS: polyethylene glycoL 3350 17 GM POWD.PACK PO (08:28)
[2024-03-28] MEDS: guaiFENesin 12 HR 600 MG TABCR PO (08:29)
[2024-03-28] MEDS: QUEtiapine FUMARATE 100 MG TABLET PO (08:29)
[2024-03-28] MEDS: SERTRALINE HCL 25 MG TABLET PO (08:29)
[2024-03-28] MEDS: risperiDONE 1 MG TABLET PO (08:29)
[2024-03-28] MEDS: LOSARTAN POTASSIUM 100 MG TABLET PO (08:29)
[2024-03-28] MEDS: ATORVASTATIN 10 MG TABLET PO (08:29)
[2024-03-28] MEDS: FINASTERIDE 5 MG TABLET PO (08:29)
[2024-03-28] MEDS: AZITHROMYCIN 500 MG/NS 250 ML 500 MG/250 ML BAG 250 MG IVPB (11:58)
[2024-03-28 12:06] LABS: Glucose Point of Care 80 mg/dl (65-105)
--- NOTE | 2024-03-28 13:14 | PCSTNOTE ---
Patient was fast asleep during this session. Therapist spoke with and son concerning his current status. They admit they offered him supper last night, pockets food, on thickened liquids, were concerned during and after feeding him last night. FREDERICK Hampton, expressed concern with patient's current status, gurgly and coughing/throat clearing without bringing up any mucous, did not feed breakfast. Therapist then spoke with Dottie, Hospitalist, and we agreed to keep patient NPO today and try again in the morning with appropriate oral presentations based on MBS from 03/26 and determine a plan to resume oral feedings, if possible.
[2024-03-28] MEDS: POTASSIUM CHLORIDE INJ 40 MEQ in SODIUM CHLORIDE 0.9% IV 500 ML 130 MEQ IVPB (13:16)
--- NOTE | 2024-03-28 14:24 | PCOTNOTE ---
Attempted to see pt. for occupational therapy evaluation. Pt. is currently not alert and oriented for participation, nursing and family aware. Will follow up with hospitalist.
[2024-03-28] MEDS: DEXTROSE 5%/0.9% SOD CHL 1,000 ML 100 ML IV CONT (15:43)
[2024-03-28 18:06] LABS: Glucose Point of Care 75 mg/dl (65-105)
[2024-03-28] MEDS: FUROSEMIDE INJ 40 MG/4 ML VIAL IV PUSH (18:29)
[2024-03-28] MEDS: PIPERACILLIN/TAZ 4.5G/NS 100ML 4.5 GM/100 ML BAG IVPB (19:21)
[2024-03-28 20:25] LABS: Glucose Point of Care 92 mg/dl (65-105)
[2024-03-28] MEDS: ACETYLCYSTEINE 20% INHAL SOLN 800 MG/4 ML VIAL 600 MG INHALATION (20:27)
[2024-03-29] VITALS (12 sets, daily range): BP systolic 114–148; BP diastolic 51–92; PULSE 63–87; RESP 12–20; TEMP 36.6–36.8; O2SAT 92–100
[2024-03-29 00:37] LABS: Glucose Point of Care 110 mg/dl (65-105)
[2024-03-29] MEDS: PIPERACILLIN/TAZ 4.5G/NS 100ML 4.5 GM/100 ML BAG IVPB ×4 (00:55→18:20)
[2024-03-29] MEDS: IPRATROPIUM 0.5 MG/ALBUTEROL SULFATE 2.5 MG AMPUL.NEB 3 ML INHALATION ×2 (02:14→08:45)
[2024-03-29 06:05] LABS: Glucose Point of Care 104 mg/dl (65-105)
[2024-03-29 06:08] LABS: Basophils Percent Auto 0.3 % (0.2-1.2); Eosinophils Absolute Auto 0.1 K/mm3 (0-0.3); Eosinophils Percent Auto 1.1 % (0-4.4); Hematocrit 26.4 % (42.0-52.0); Hemoglobin 8.1 g/dL (14.0-18.0); Immature Granulocyte Absolute 0.57 K/mm3 (0.00-0.031); Immature Granulocyte Percent A 4.8 % (0-0.5); Lymphocytes Absolute Auto 0.78 K/mm3 (0.9-3.2); Lymphocytes Percent Auto 6.6 % (18.3-44.2); Mean Corpuscular HGB Conc 30.7 g/dl (32-36); Mean Corpuscular Hemoglobin 24.3 pg (26-34); Mean Corpuscular Volume 79.3 fl (80-100); Mean Platelet Volume 10.8 fl (7.4-10.4); Monocytes Absolute Auto 0.8 K/mm3 (0.1-0.6); Neutrophils Absolute Auto 9.5 K/mm3 (1.3-6.7); Neutrophils Percent Auto 80.2 % (45.5-73.1); Nucleated Red Blood Cells Perc 0.3 % (0.0-0.2); Platelet Count Result 283 k/mm3 (150-375); Red Blood Count 3.33 M/mm3 (4.6-6.20); Red Cell Distribution Width 18.2 % (11.5-14.5); White Blood Count 11.8 K/mm3 (4.5-10.0)
--- NOTE | 2024-03-29 06:21 | PC.NURSE ---
Pt's initiated dialogue with this RN about hospice services. She is requesting care coordination consult for hospice services.
[2024-03-29 06:32] LABS: Alanine Aminotransferase 41 U/L (6-50); Albumin Level 2.7 g/dL (3.5-5.1); Alkaline Phosphatase 99 U/L (38-126); Anion Gap 4 mmol/L (4-12); Aspartate Amino Transferase 31 U/L (17-59); Bilirubin,Total 0.3 mg/dL (0.2-1.3); Blood Urea Nitrogen 15 mg/dL (9-20); Calcium 7.9 mg/dL (8.4-10.2); Carbon Dioxide 26 mmol/L (22-30); Chloride 108 mmol/L (98-107); Estimated CRCL calculation 73 ml/min; Estimated Glomerular Filt Rate > 60; Glucose 106 mg/dL (65-110); Magnesium 2.2 mg/dL (1.6-2.3); Potassium 3.4 mmol/L (3.4-5.0); Sodium 138 mmol/L (137-145)
--- NOTE | 2024-03-29 06:32 | PC.NURSE ---
Pt's glucose at bedtime was 92. Pt is NPO. This RN called Dr Johnson and received an order to hold HS dose of lantus. Lantus not administered.
--- NOTE | 2024-03-29 07:25 | PM.IMPN ---
Progress Note: A&P Assessment and Plan (1) Acute respiratory failure with hypoxia: Code(s): J96.01 - Acute respiratory failure with hypoxia Status: Acute Assessment and Plan: - no supplemental O2 requirement at baseline - oxygen had been weaned but now requiring oxygen again - recent COVID infection, diagnosed 2 weeks ago, and continuing to test positive today - CXR concerning for pneumonia - suspect new hypoxia related to pneumonia - patient was started on cap treatment with Rocephin and azithromycin. Stopping Rocephin and changing to Unasyn as they are concerns for possible underlying UTI with Enterococcus in past cultures and can also cover for aspiration. - Case discussed with ID pharm. Can consider escalation to Zosyn. - CT of chest/abd/pelvis with contrast to rule out PE. Wells for PE with moderate risk. Patient recently had COVID which can increase risk of thrombus. (2) Pneumonia: Qualifiers: Laterality: bilateral Lung location: lower lobe of lung Pneumonia type: due to unspecified organism Qualified Code(s): J18.9 - Pneumonia, unspecified organism Code(s): J18.9 - Pneumonia, unspecified organism Status: Acute Assessment and Plan: - did not meet SIRS criteria, however lactic 1.5 and blood cultures drawn on 03/25. Follow. - CXR: patchy bilateral airspace disease, compatible with pneumonia. - risk factors: [place] resident - complicating factors: Recent COVID infection - started on CAP tx: ceftriaxone azithromycin on 03/25. Stop Rocephin add Unasyn. Consider escalation to Zosyn if he does not clinically improve - MRSA PCR - Viral PCR: +COVID (previously tested positive 2 weeks ago), otherwise negative - sputum culture - supportive care: Mucinex, antipyretics, and nebs - new supplemental O2 requirement - NC - Added Mucomyst nebulizer, increased mucinex dose, CPT TID as he is unable to participate with IS/pep - nasotracheal suctioning as needed - Speech performed modified barium swallow and there were concerns for aspiration. He was started on pureed in mildly thick liquids. - PT/OT ordered (3) Type 2 diabetes mellitus: Qualifiers: Diabetes mellitus complication status: without complication Diabetes mellitus oil heaterman insulin use: with fpc use Qualified Code(s): E11.9 - Type 2 diabetes mellitus without complications; Z79.4 - marine oil terminal superintendent (current) use of insulin Code(s): E11.9 - Type 2 diabetes mellitus without complications Status: Acute Assessment and Plan: - hypoglycemia protocol - POC blood glucose ACHS - home medication: Metformin 1000 mg b.i.d.. Hold while inpatient - Q 6 hour accu checks today while NPO - D5 NS at 100 ml per hour while NPO with low blood glucose - correct regimen ordered - low dose TIDWM, 4 units t.i.d. with meals, 12 units Lantus nightly - A1C 8.2% on 07/19/2023, repeat A1c 10.2% (4) Essential hypertension: Code(s): I10 - Essential (primary) hypertension Status: Acute Assessment and Plan: - chronic, currently 133/66 - hold home medications: Losartan 100 mg daily - monitor (5) Urinary retention: Code(s): R33.9 - Retention of urine, unspecified Status: Acute Assessment and Plan: Patient is a able to stand and urinate and has not been able to use the urinal given his confusion. Bladder scan q.6 Intermittent straight catheterization as needed for residual greater than 500 mils May consider placement of a Celestin catheter if more than 3 straight cath as needed. This is to the discretion of the family. Patient is at a Celestin catheter in the past and has removed them causing trauma. Family would like to defer placement of the catheter for now. Leukocytosis persist despite antibiotic therapy. UA sent today mildly concerning for possible UTI. He did have bacteria, +1 leuks, and Altered mental status from baseline on arrival. UA collected after antibiotics had be
[2024-03-29 08:28] LABS: Glucose Point of Care 113 mg/dl (65-105)
--- NOTE | 2024-03-29 11:38 | PCSTNOTE ---
The patient treatment was not able to be completed on 03/29 due to patient possibly going Hospice, status has decreased from yesterday. Will continue to assess ability to participate and continue treatment until Hospice confirmed.
[2024-03-29] MEDS: SCOPOLAMINE 1 MG PATCH 1 PATCH TRANSDERM (12:34)
[2024-03-29] MEDS: AZITHROMYCIN 500 MG/NS 250 ML 500 MG/250 ML BAG 250 MG IVPB (12:35)
[2024-03-29 12:43] LABS: Glucose Point of Care 130 mg/dl (65-105)
--- NOTE | 2024-03-29 13:34 | PCOTNOTE ---
Attempted OT evaluation, pt. not appropriate for therapy services at this time due to severity of condition and cognitive function, with potential to transition to hospice. Nursing aware.Please reorder if pt. will benefit from OT services and can tolerate activity.
[2024-03-29] MEDS: IBUPROFEN IV 400 MG in SODIUM CHLORIDE 0.9% IV 100 ML 208 MG IVPB ×2 (14:00→21:15)
--- NOTE | 2024-03-29 14:34 | PCPTNOTE ---
Attempted PT evaluation, pt. not appropriate for therapy services at this time due to severity of condition and cognitive function. Please reorder if pt. will benefit from PT services and can tolerate activity.
[2024-03-29] MEDS: DEXTROSE 5%/0.9% SOD CHL 1,000 ML 100 ML IV CONT ×2 (15:47→21:16)
[2024-03-29 17:04] LABS: Glucose Point of Care 135 mg/dl (65-105)
[2024-03-29 23:49] LABS: Glucose Point of Care 195 mg/dl (65-105)
[2024-03-30] MEDS: PIPERACILLIN/TAZ 4.5G/NS 100ML 4.5 GM/100 ML BAG IVPB ×2 (00:16→05:16)
[2024-03-30 05:36] LABS: Glucose Point of Care 184 mg/dl (65-105)
[2024-03-30 05:53] LABS: Basophils Percent Auto 0.4 % (0.2-1.2); Eosinophils Absolute Auto 0.3 K/mm3 (0-0.3); Eosinophils Percent Auto 3.8 % (0-4.4); Hematocrit 26.6 % (42.0-52.0); Hemoglobin 7.9 g/dL (14.0-18.0); Immature Granulocyte Percent A 3.8 % (0-0.5); Lymphocytes Absolute Auto 0.86 K/mm3 (0.9-3.2); Lymphocytes Percent Auto 10.9 % (18.3-44.2); Mean Corpuscular HGB Conc 29.7 g/dl (32-36); Mean Corpuscular Hemoglobin 24.2 pg (26-34); Mean Corpuscular Volume 81.3 fl (80-100); Monocytes Absolute Auto 0.6 K/mm3 (0.1-0.6); Neutrophils Absolute Auto 5.8 K/mm3 (1.3-6.7); Neutrophils Percent Auto 74.1 % (45.5-73.1); Platelet Count Result 268 k/mm3 (150-375); Red Blood Count 3.27 M/mm3 (4.6-6.20); Red Cell Distribution Width 18.4 % (11.5-14.5); White Blood Count 7.9 K/mm3 (4.5-10.0)
[2024-03-30 05:58] LABS: Alanine Aminotransferase 35 U/L (6-50); Albumin Level 2.4 g/dL (3.5-5.1); Alkaline Phosphatase 78 U/L (38-126); Anion Gap 4 mmol/L (4-12); Aspartate Amino Transferase 29 U/L (17-59); Bilirubin,Total 0.3 mg/dL (0.2-1.3); Blood Urea Nitrogen 15 mg/dL (9-20); Calcium 7.7 mg/dL (8.4-10.2); Carbon Dioxide 26 mmol/L (22-30); Chloride 108 mmol/L (98-107); Estimated CRCL calculation 86 ml/min; Estimated Glomerular Filt Rate > 60; Glucose 179 mg/dL (65-110); Magnesium 2.2 mg/dL (1.6-2.3); Potassium 3.8 mmol/L (3.4-5.0); Sodium 138 mmol/L (137-145)
[2024-03-30 06:00] VITALS: BP 137/60; PULSE 62; RESP 18; TEMP 36.3; O2SAT 98
[2024-03-30 08:08] LABS: Band Neutrophils Percent 14 % (0-6); Lymphocytes Absolute Manual 0.31 K/mm3 (1.1-4.5); Monocytes Absolute Manual 0.55 K/mm3 (0.1-0.90); Monocytes Percent Manual 7 % (3-9); Neutrophils Absolute Manual 7.03 K/mm3 (1.3-6.7); Neutrophils Percent Manual 75 % (46-73); Total Cells Counted 100
[2024-03-30 08:09] LABS: Anisocytosis 1+; Platelet Estimate Adequate (Adequate)
[2024-03-30 08:10] LABS: Hypochromasia 1+; Ovalocytes 1+; Schistocytes None Seen
[2024-03-30] MEDS: ATORVASTATIN 10 MG TABLET PO (08:52)
[2024-03-30] MEDS: FINASTERIDE 5 MG TABLET PO (08:53)
[2024-03-30] MEDS: SERTRALINE HCL 25 MG TABLET PO (08:53)
[2024-03-30] MEDS: guaiFENesin 12 HR 600 MG TABCR 1200 MG PO (08:53)
[2024-03-30] MEDS: QUEtiapine FUMARATE 100 MG TABLET PO (08:53)
[2024-03-30] MEDS: risperiDONE 1 MG TABLET PO (08:53)
--- NOTE | 2024-03-30 10:30 | PM.DS ---
DS: Admitting Diagnosis Discharge Date 03/30/2024 Admitting Diagnosis Acute respiratory failure with hypoxia secondary to Pneumonia DS: Discharge Diagnosis Discharge Diagnosis (1) Acute respiratory failure with hypoxia: Code(s): J96.01 - Acute respiratory failure with hypoxia Status: Acute Assessment and Plan: - no supplemental O2 requirement at baseline - oxygen had been weaned but now requiring oxygen again - recent COVID infection, diagnosed 2 weeks ago, and continuing to test positive today - CXR concerning for pneumonia - suspect new hypoxia related to pneumonia - patient was started on cap treatment with Rocephin and azithromycin. Stopping Rocephin and changing to Unasyn as they are concerns for possible underlying UTI with Enterococcus in past cultures and can also cover for aspiration. - Case discussed with ID pharm. Can consider escalation to Zosyn. - CT of chest/abd/pelvis with contrast to rule out PE. Wells for PE with moderate risk. Patient recently had COVID which can increase risk of thrombus. (2) Pneumonia: Qualifiers: Laterality: bilateral Lung location: lower lobe of lung Pneumonia type: due to unspecified organism Qualified Code(s): J18.9 - Pneumonia, unspecified organism Code(s): J18.9 - Pneumonia, unspecified organism Status: Acute Assessment and Plan: - did not meet SIRS criteria, however lactic 1.5 and blood cultures drawn on 03/25. Follow. - CXR: patchy bilateral airspace disease, compatible with pneumonia. - risk factors: [place] resident - complicating factors: Recent COVID infection - started on CAP tx: ceftriaxone azithromycin on 03/25. Stop Rocephin add Unasyn. Consider escalation to Zosyn if he does not clinically improve - MRSA PCR - Viral PCR: +COVID (previously tested positive 2 weeks ago), otherwise negative - sputum culture - supportive care: Mucinex, antipyretics, and nebs - new supplemental O2 requirement - NC - Added Mucomyst nebulizer, increased mucinex dose, CPT TID as he is unable to participate with IS/pep - nasotracheal suctioning as needed - Speech performed modified barium swallow and there were concerns for aspiration. He was started on pureed in mildly thick liquids. - PT/OT ordered (3) Type 2 diabetes mellitus: Qualifiers: Diabetes mellitus complication status: without complication Diabetes mellitus snf insulin use: with terminal manager use Qualified Code(s): E11.9 - Type 2 diabetes mellitus without complications; Z79.4 - terminal manager (current) use of insulin Code(s): E11.9 - Type 2 diabetes mellitus without complications Status: Acute Assessment and Plan: - hypoglycemia protocol - POC blood glucose ACHS - home medication: Metformin 1000 mg b.i.d.. Hold while inpatient - Q 6 hour accu checks today while NPO - D5 NS at 100 ml per hour while NPO with low blood glucose - correct regimen ordered - low dose TIDWM, 4 units t.i.d. with meals, 12 units Lantus nightly - A1C 8.2% on 07/19/2023, repeat A1c 10.2% (4) Essential hypertension: Code(s): I10 - Essential (primary) hypertension Status: Acute Assessment and Plan: - chronic, currently 133/66 - hold home medications: Losartan 100 mg daily - monitor (5) Urinary retention: Code(s): R33.9 - Retention of urine, unspecified Status: Acute Assessment and Plan: Patient is a able to stand and urinate and has not been able to use the urinal given his confusion. Bladder scan q.6 Intermittent straight catheterization as needed for residual greater than 500 mils May consider placement of a Celestin catheter if more than 3 straight cath as needed. This is to the discretion of the family. Patient is at a Celestin catheter in the past and has removed them causing trauma. Family would like to defer placement of the catheter for now. Leukocytosis persist despite antibiotic therapy. UA sent today mildly concer
== END 2024-03-30 11:43 | disposition hospice, home (50) | DRG 193 ==
LOC: ANHED 13:57 → ANH2MED 16:08
PROVIDERS: Nurse Practitioner Acute Care; Student in an Organized Health Care Education/Training Program; Admitting Provider Internal Medicine; Emergency Provider Emergency Medicine; Visit Provider Nurse Practitioner Family
DX: J18.9 Pneumonia, unspecified organism (principal); J96.01 Acute respiratory failure with hypoxia; U09.9 Post COVID-19 condition, unspecified; E11.9 Type 2 diabetes mellitus without complications; R33.9 Retention of urine, unspecified; N40.0 Benign prostatic hyperplasia without lower urinary tract symptoms; I10 Essential (primary) hypertension; D64.9 Anemia, unspecified; Z79.4 Long term (current) use of insulin
CPT/HCPCS: 36415; 71046; 71275; 74177; 80048; 80053; 81001; 82607; 82746; 82948; 83036; 83540; 83550; 83605; 83735; 84145; 85025; 85610; 85730; 86140; 87040; 87637; 87641; 92611; 93005; 94640; 94669; 96365; 96367; 99285; A9270; G0378; J0295; J0456; J0696; J1650; J1741; J1815; J1940; J2543; J3480; J7030; J7040; J7042; J7050; Q9967